=== PATIENT | female | born 1930 | race Caucasian/White ===

== ENCOUNTER 2017-07-25 10:39 | Inpatient (IN) | payer OTHER, BC ==
[2017-07-25 11:13] LABS: BASOPHIL 0.4 % (0-2.0); EOSINOPHIL 0.6 % (0-4.5); MCH 27.9 pg (25.7-33.7); MCHC 34.3 g/dl (32.0-36.0); MEAN CELL VOLUME 81.3 fl (80-96); MEAN PLT VOLUME 8.1 fl (7.5-11.1); PLATELET COUNT 176 K/MM3 (134-434); RDW 14.2 % (11.6-15.6)
[2017-07-25] MEDS ORDERED: LABETALOL HCL 5 MG/1 ML (100MG/20 ML VIAL) IVPUSH ONE (11:15)
--- NOTE | 2017-07-25 11:15 | PDOC ---
History of Present Illness - General Chief Complaint: Altered Mental Status Stated Complaint: ALTERED MENTAL STATUS Time Seen by Provider: 07/25/17 10:50 History Source: Patient Exam Limitations: No Limitations - History of Present Illness Initial Comments: 07/25/17 12:38 Pt. is a 86-year-old female with past medical history of hypertension, HLD, IDDM who presents to the emergency department today with confusion, left facial droop, and slurred speech. She is accompanied by her son. Her son states that she lives with him and he went to check on her this morning at approximately 9: 15 when she grumbled that she was tired and went back to bed. He went back to check on her approximately 15 minutes later and now she had slurred speech and was very confused. He called 911 for transport. Last known well is undetermined as the son states the last time he believes she was truly well was approximately last evening at 10 PM. Patient is an unreliable historian and we are not able to obtain a review of systems at this time, although she is c/o of a headache at this time. Blood pressure is elevated at this time 211/115. tPA Exclusion checklist 3-4.5h - Time Elapsed Date last known well: 07/24/17 Time last known well: 22:00 Elaspsed time: Day(s) and 15 Hour(s) and 1 Minutes - Thrombolytic Therapy Candidate Is patient eligible for thrombolytic therapy: No - Ineligibility reason(s) Reasons No tPA given: Outside of window - delayed arrival NIH Stroke Scale - Last Known Well Date/Time & Onset Date Last Known Well: 07/24/17 Time Last Known Well: 22:00 - Initial Evaluation Level of consciousness: Alert Ask patient the month and their age: Answers one correctly Ask patient to open & close eyes; make fist and let go: Obeys both correctly Best gaze (horizontal eye movement): Normal Visual field testing: No visual field loss Facial paresis (Show teeth/raise eyebrows/close eyes tight): Minor paralysis ( flattened nasolabial fold, asymmetry on smiling) Motor Function: Left Arm: Normal Motor Function: Right Arm: Normal (extends arm 90 (or 45) degrees for 10 seconds without drift Motor Function: Left Leg: Drift Motor Function: Right Leg: Normal (extends leg 30 degrees for 5 seconds without drift) Limb Ataxia: No ataxia Sensory(Use pinprick test arms,legs,trunk,face/side to side): Normal Best language (Describe picture, name items, read sentences): Mild to moderate aphasia Dysarthria (read several words): Mild to moderate slurring of words Extinction and Inattention: No abnormality - Total Score NIH Stroke Scale Score: 5 Past History - Travel Traveled outside of the country in the last 30 days: No Close contact w/someone who was outside of country & ill: No - Past Medical History Allergies/Adverse Reactions: Allergies Allergy/AdvReac Type Severity Reaction Status Date / Time No Known Allergies Allergy Verified 07/25/17 10:52 Home Medications: Ambulatory Orders Aspirin [ASA -] 81 mg PO DAILY #0 tab.chew 05/18/13 Atorvastatin Ca [Lipitor] 10 mg PO DAILY #0 tablet 05/18/13 Magnesium Oxide [Mag-Ox -] 400 mg PO BID #0 tablet 05/18/13 Metformin HCl [Glucophage -] 1,000 mg PO BID #0 tablet 05/18/13 Metoprolol Tartrate [Lopressor -] 50 mg PO BID #0 tablet 05/18/13 Multivit-Min/FA/Lycopene/Lut [Centrum Silver Tablet] 1 each PO DAILY #0 tablet 05/18/13 Potassium Chloride [Klor-Con] 20 meq PO DAILY #0 packet 05/18/13 Anastrozole [Arimidex -] 1 mg PO DAILY 11/13/14 Calcium Carbonate [Tums] 500 mg PO DAILY 11/13/14 Insulin (Levemir) [Levemir Flexpen -] 14 units SQ HS 11/13/14 Losartan/Hydrochlorothiazide [Losartan-Hctz 100-25 mg Tab] 1 each PO DAILY 11/13 COPD: No Diabetes: Yes (type 2) HTN: Yes Hypercholesterolemia: Yes - Surgical History Appendectomy: Yes - Suicide/Smoking/Psychosocial Hx Smoking Status: No Smoking History: Never smoked Have you smoked in the past 12 months: No Number of Cigarettes Smoked Daily: 0 Information on smoking cessation initiated: No Hx Alcohol Use: No Drug/Substance Use Hx: No Substance Use Type: None Review of Systems - Review of Systems Able to Perform ROS?: Yes Comments:: 07/25/17 12:39 CONSTITUTIONAL: Absent: fever, chills, diaphoresis, generalized weakness, malaise, loss of appetite HEENT: Absent: rhinorrhea, nasal congestion, throat pain, throat swelling, difficulty swallowing, mouth swelling, ear pain, eye pain, visual Changes CARDIOVASCULAR: Absent: chest pain, loss of consciousness, palpitations, irregular heart rate, peripheral edema RESPIRATORY: Absent: cough, shortness of breath, dyspnea with exertion, orthopnea, wheezing, stridor, hemoptysis GASTROINTESTINAL: Absent: abdominal pain, abdominal distension, nausea, vomiting, diarrhea, constipation, melena, hematochezia GENITOURINARY: Absent: dysuria, frequency, urgency, hesitancy, hematuria, flank pain, genital pain MUSCULOSKELETAL: Absent: myalgia, arthralgia, joint swelling SKIN: Absent: rash, itching, pallor HEMATOLOGIC/IMMUNOLOGIC: Absent: easy bleeding, easy bruising, lymphadenopathy, frequent infections ENDOCRINE: Absent: unexplained weight gain, unexplained weight loss, heat intolerance, cold intolerance NEUROLOGIC: Present: headache, mental status changes. Absent: focal weakness or paresthesias , dizziness, unsteady gait, seizure, bladder or bowel incontinence PSYCHIATRIC: Absent: anxiety, depression, suicidal or homicidal ideation, hallucinations. Is the patient limited Palestinian proficient: No *Physical Exam - Vital Signs Last Vital Signs Temp Pulse Resp BP Pulse Ox 90 18 211/115 100 07/25/17 10:39 07/25/17 10:39 07/25/17 10:39 07/25/17 10:39 - Physical Exam Comments: 07/25/17 12:41 GENERAL: Well developed, well nourished. Awake and alert x2, confused. Mild distress d/t confusion. HEENT: Normocephalic, atraumatic. PERRLA. Pt. has a difficult time comprehending exam for EOM. Appear to be intact at this time. No conjunctival pallor. Sclera are non-icteric. Moist mucous membranes. Oropharynx is clear. NECK: Supple. Full ROM. No JVD. Carotid pulses 2+ and symmetric, without bruits. No thyromegaly. No lymphadenopathy. CARDIOVASCULAR: Regular rate and rhythm. No murmurs, rubs, or gallops. Distal pulses are 2+ and symmetric. PULMONARY: No evidence of respiratory distress. Lungs clear to auscultation bilaterally. No wheezing, rales or rhonchi. ABDOMINAL: Soft. Non-tender. Non-distended. No rebound or guarding. No organomegaly. Normoactive bowel sounds. MUSCULOSKELETAL Normal range of motion at all joints. No bony deformities or tenderness. No CVA tenderness. EXTREMITIES: No cyanosis. No clubbing. No edema. No calf tenderness. SKIN: Warm and dry. Normal capillary refill. No rashes. No jaundice. NEUROLOGICAL: AAOx2 (person and place) and confused. Full neuro exam is difficult to appreciate given pt. is not following commands well. No deficits to light touch and temperature in face, upper extremities and lower extremities. No motor deficits in the in face, upper extremities. Pt with mild weakness in the L leg. Normoreflexic in the upper and lower extremities. Slurred speech with some dysarthria. Toes are down-going bilaterally. Gait is unobserved. PSYCHIATRIC: Cooperative. Good eye contact. Appropriate mood and affect. ED Treatment Course - LABORATORY CBC & Chemistry Diagram: 07/25/17 11:02 07/25/17 11:02 Medical Decision Making - Medical Decision Making 07/25/17 11:47 Patient is an 86-year-old female with past medical history of HTN, HLD, IDDM who presents emergency department with slurred speech, left-sided facial droop and confusion. Last known well was last night at approximately 10 PM however given that there are still symptoms a code piper was called. Pt. not eligible for tPA as unable to determine LKW. 1.stroke protocol 2.reevaluate 07/25/17 12:[address] shows: Moderate atrophy and moderate to marked chronic microvascular ischemic changes. Right occipital lobe acute/subacute infarct. No gross intracranial hemorrhage is identified. Follow-up is needed. NIH stroke scale is 5 at this time. Patient is unable to determine what month it is. There is a slight facial droop on the left with some flattening of her smile. There is mild slurred speech and dysarthria. She also has a left leg drift. Neurology has been consulted. Patient is seen by Dr. Pruitt. We will contact Dr. Falcon for admission. Pt. passes bedside swallow. Aspirin given. Pressure elevated to 198/105. Will administer home dose of htcz/hydrochorthiazide. EKG: Sinus rhythm with LAFB. LVH with QRS widening. No acute ST-T wave changes. 07/25/17 12:[address] Falcon. Accepts pt. to Stroke Tele unit. Dr. Hnery consulted. *DC/Admit/Observation/Transfer Diagnosis at time of Disposition: CVA (cerebral vascular accident) Qualifiers: CVA mechanism: unspecified Qualified Code(s): I63.9 - Cerebral infarction, unspecified - Discharge Dispostion Condition at time of disposition: Guarded Admit: Yes - Referrals Referrals: Musa Ellington MD [Primary Care Provider] -
[2017-07-25 11:24] VITALS: BMI 35.4
--- NOTE | 2017-07-25 11:30 | PDOC ---
*Physical Exam - Vital Signs Last Vital Signs Temp Pulse Resp BP Pulse Ox 90 18 211/115 100 07/25/17 10:39 07/25/17 10:39 07/25/17 10:39 07/25/17 10:39 <Alycia Chandler - Last Filed: 07/25/17 11:25> - Vital Signs Last Vital Signs Temp Pulse Resp BP Pulse Ox 90 18 211/115 100 07/25/17 10:39 07/25/17 10:39 07/25/17 10:39 07/25/17 10:39 - Physical Exam Comments: 07/25/17 11:30 GENERAL: Awake, alert, eyes open HEAD: No signs of trauma EYES: PERRLA, EOMI, sclera anicteric, conjunctiva clear ENT: Auricles normal inspection, hearing grossly normal, nares patent, oropharynx clear without exudates. Moist mucosa NECK: Normal ROM, supple, no lymphadenopathy, JVD, or masses LUNGS: Breath sounds equal, clear to auscultation bilaterally. No wheezes, and no crackles HEART: Regular rate and rhythm, normal S1 and S2, no murmurs, rubs or gallops ABDOMEN: Soft, nontender, normoactive bowel sounds. No guarding, no rebound. No masses EXTREMITIES: Warm, well perfused. No edema. No clubbing or cyanosis. No cords, erythema, or tenderness NEUROLOGICAL: Mild left nasolabial flattening. Speech has mild slurring. Left arm has a drift. SKIN: Warm, Dry, normal turgor, no rashes or lesions noted. <Marie Hoover - Last Filed: 07/25/17 11:31> ED Treatment Course - LABORATORY CBC & Chemistry Diagram: 07/25/17 11:02 07/25/17 11:02 - ADDITIONAL ORDERS Additional order review: 07/25/17 11:02 RBC 5.65 H D MCV 81.3 MCHC 34.3 RDW 14.2 MPV 8.1 Neutrophils % 76.0 D Lymphocytes % 18.0 D Monocytes % 5.0 Eosinophils % 0.6 D Basophils % 0.4 - RADIOLOGY Radiology Studies Ordered: Category Date Time Status HEAD CT (STROKE) [CT] Stat CT Scan 07/25/17 10:50 Completed CHEST X-RAY PORTABLE* [RAD] Stat Radiology 07/25/17 10:50 Ordered <Alycia Chandler - Last Filed: 07/25/17 11:25> - LABORATORY CBC & Chemistry Diagram: 07/25/17 11:02 07/25/17 11:02 - ADDITIONAL ORDERS Additional order review: 07/25/17 11:02 RBC 5.65 H D MCV 81.3 MCHC 34.3 RDW 14.2 MPV 8.1 Neutrophils % 76.0 D Lymphocytes % 18.0 D Monocytes % 5.0 Eosinophils % 0.6 D Basophils % 0.4 <Marie Hoover - Last Filed: 07/25/17 11:31> Medical Decision Making - Medical Decision Making 07/25/17 11:26 86 yo F wit h/o DM HTN here with AMS , left facial droop and left sided weakness. confusion. last normal last pm prior to goig to bed. was awoke this am around 8 : 45 by son. pt states she was drowsy, seemed confused, went back to bed. on exam NIH Stroke of 5, mild left nasolabial flattening, left leg drifts, and mild dysarthria, and slurring. difficult to assess visual johns and ataxia pt cant comprehend instruction. pt not candidate for TPA due to delay in presentation. d/w dr. morrow. head ct labs ekg will admit for monitoring. <Alycia Chandler - Last Filed: 07/25/17 11:25> - Medical Decision Making 07/25/17 11:30 86 y/o F with a PMHx of HTN, NIDDM presents to the ED with slurred speech, confusion and left sided facial droop this morning. Son states that he woke the patient up around 8:45 am this morning and the patient was tired and wanted to go back to sleep. Son wasnt able to notice a facial droop at the time but he noted that she sounded sleepy/groggy but didnt think much of it. A few hours later, son noticed a left sided facial droop and slurred speech and called EMS. Patient did not take her medications today. Denies prior strokes or heart attacks in the past. Denies nausea, vomiting. PCP: Dr. José Miguel Ellington <Marie Hoover - Last Filed: 07/25/17 11:31> *DC/Admit/Observation/Transfer <Alycia Chandler - Last Filed: 07/25/17 11:25> - Attestations Scribe Attestion: 07/25/17 11:31 Documentation prepared by Marie Hoover, acting as medical staff assistant for Alycia Chandler MD. <Marie Hoover - Last Filed: 07/25/17 11:31> Diagnosis at time of Disposition: CVA (cerebral vascular accident) - Referrals Referrals: Musa Ellington MD [Primary Care Provider] -
[2017-07-25 11:39] LABS: URINE APPEARANCE CLEAR; URINE BILIRUBIN NEGATIVE (NEGATIVE); URINE BLOOD NEGATIVE (NEGATIVE); URINE COLOR STRAW; URINE GLUCOSE (UA) 1+ (NEGATIVE); URINE KETONE TRACE (NEGATIVE); URINE NITRITE NEGATIVE (NEGATIVE); URINE UROBILINOGEN NEGATIVE mg/dL (0.2-1.0)
[2017-07-25 11:41] LABS: INR 1.02 (0.82-1.09); PROTHROMBIN TIME (PATIENT) 11.5 SEC (9.98-11.88)
[2017-07-25 11:42] LABS: ALBUMIN 5.1 g/dl (3.4-5.0); ANION GAP 12 (8-16); CALCIUM 9.3 mg/dL (8.5-10.1); CO2 27 mmol/L (21-32); CREATININE 0.7 mg/dL (0.55-1.02); GLUCOSE,RANDOM 150 mg/dL (74-106); SGOT/AST 32 U/L (15-37); SGPT/ALT 22 U/L (12-78)
[2017-07-25 11:46] LABS: ALK PHOS 116 U/L (45-117); CPK 60 IU/L (26-192); TOT PROT 7.6 g/dl (6.4-8.2); TROPONIN I < 0.02 ng/ml (0.00-0.05)
[2017-07-25 11:55] LABS: URINE PROTEIN 3+ (NEGATIVE)
[2017-07-25 11:58] LABS: URINE MUCUS RARE; URINE RBC 0-2 /hpf (0-3); URINE WBC NEGATIVE /hpf (3-5)
[2017-07-25] MEDS ORDERED: ASPIRIN 81 MG CHEWABLE TABLETS PO ONE (12:04)
[2017-07-25] MEDS ORDERED: ASPIRIN 81 MG CHEWABLE TABLETS ONE (12:07)
[2017-07-25] MEDS ORDERED: LOSARTAN 50MG/HCTZ 12.5MG 1 TAB (FP) PO ONE (12:46)
[2017-07-25 12:53] LABS: CHOLESTEROL 165 mg/dL (50-200)
[2017-07-25] MEDS ORDERED: ONDANSETRON 4 MG/2 ML VIAL IVPUSH PRN (13:54)
[2017-07-25] MEDS ORDERED: hydrALAZINE HCL 20 MG/ML VIAL IM PRN (14:04)
--- NOTE | 2017-07-25 14:04 | HP ---
Admitting History and Physical - Primary Care Physician PCP: Musa Ellington - Admission Chief Complaint: I was confused History of Present Illness: Ms Enrique is a very pleasant 86 year old female who comes in with her son with confusion. 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 He says that Ms Enrique was doing well, however she woke up this morning and seemed confused. He says that her speech was a bit slurred but it not severely and he took it as her just waking up. She said that she was not feeling well and went back to sleep. However when she woke up she was very confused. Because of this he brought her in. He says that at first she was very "out of it" but now comes and goes, however she recognizes him again which is an improvement. History Source: Family Member Limitations to Obtaining History: Clinical Condition, Dementia - Past Medical History Cardiovascular: Yes: HTN Endocrine: Yes: Diabetes Mellitus - Past Surgical History Past Surgical History: Yes: Appendectomy - Smoking History Smoking history: Never smoked Have you smoked in the past 12 months: No Aproximately how many cigarettes per day: 0 - Alcohol/Substance Use Hx Alcohol Use: No History of Substance Use: reports: None - Social History Usual Living Arrangement: Yes: With Child ADL: Family Assistance History of Recent Travel: No Home Medications - Allergies Allergies/Adverse Reactions: Allergies Allergy/AdvReac Type Severity Reaction Status Date / Time No Known Allergies Allergy Verified 07/25/17 10:52 - Home Medications Home Medications: Ambulatory Orders Aspirin [ASA -] 81 mg PO DAILY #0 tab.chew 05/18/13 Atorvastatin Ca [Lipitor] 10 mg PO DAILY #0 tablet 05/18/13 Magnesium Oxide [Mag-Ox -] 400 mg PO BID #0 tablet 05/18/13 Metformin HCl [Glucophage -] 1,000 mg PO BID #0 tablet 05/18/13 Metoprolol Tartrate [Lopressor -] 50 mg PO BID #0 tablet 05/18/13 Multivit-Min/FA/Lycopene/Lut [Centrum Silver Tablet] 1 each PO DAILY #0 tablet 05/18/13 Potassium Chloride [Klor-Con] 20 meq PO DAILY #0 packet 05/18/13 Anastrozole [Arimidex -] 1 mg PO DAILY 11/13/14 Calcium Carbonate [Tums] 500 mg PO DAILY 11/13/14 Insulin (Levemir) [Levemir Flexpen -] 14 units SQ HS 11/13/14 Losartan/Hydrochlorothiazide [Losartan-Hctz 100-25 mg Tab] 1 each PO DAILY 11/13 Family Disease History - Family Disease History Family Disease History: Other: Son (hypothyroid) Review of Systems Unable to obtain ROS, reason: dementia/CVA Physical Examination Vital Signs: Vital Signs Temperature 36.8 C 07/25/17 11:05 Pulse Rate 85 07/25/17 13:24 Respiratory Rate 22 07/25/17 13:24 Blood Pressure 195/108 07/25/17 13:24 O2 Sat by Pulse Oximetry (%) 94 L 07/25/17 13:24 Constitutional: Yes: Well Nourished, No Distress, Calm Eyes: Yes: Conjunctiva Clear, EOM Intact, PERRL HENT: Yes: Atraumatic, Normocephalic Cardiovascular: Yes: Regular Rate and Rhythm. No: Gallop, Murmur, Rub Respiratory: Yes: Regular, CTA Bilaterally. No: Rales, Rhonchi, Wheezes Gastrointestinal: Yes: Normal Bowel Sounds, Soft. No: Distention, Tenderness Extremities: Yes: WNL Edema: No Labs: Laboratory Results - last 24 hr 07/25/17 07/25/17 07/25/17 11:02 11:02 11:02 WBC 9.0 D RBC 5.65 H D Hgb 15.8 H D Hct 45.9 H D MCV 81.3 MCH 27.9 MCHC 34.3 RDW 14.2 Plt Count 176 MPV 8.1 Neutrophils % 76.0 D Lymphocytes % 18.0 D Monocytes % 5.0 Eosinophils % 0.6 D Basophils % 0.4 PT with INR 11.50 INR 1.02 Sodium 135 L Potassium 3.2 L Chloride 96 L Carbon Dioxide 27 Anion Gap 12 BUN 17 Creatinine 0.7 Creat Clearance w eGFR > 60 Random Glucose 150 H D Calcium 9.3 Total Bilirubin 1.0 D AST 32 ALT 22 Alkaline Phosphatase 116 D Creatine Kinase 60 Troponin I < 0.02 Total Protein 7.6 D Albumin 5.1 H D Triglycerides 162 H Cholesterol 165 Total LDL Cholesterol 76 HDL Cholesterol 69 H Urine Color Urine Appearance Urine pH Ur Specific [place] Urine Protein Urine Glucose (UA) Urine Ketones Urine Blood Urine Nitrite Urine Bilirubin Urine Urobilinogen Ur Leukocyte Esterase Urine RBC Urine WBC Urine Mucus Blood Type Antibody Screen Antibody Identification Antigen Identification 07/25/17 07/25/17 11:02 11:20 WBC RBC Hgb Hct MCV MCH MCHC RDW Plt Count MPV Neutrophils % Lymphocytes % Monocytes % Eosinophils % Basophils % PT with INR INR Sodium Potassium Chloride Carbon Dioxide Anion Gap BUN Creatinine Creat Clearance w eGFR Random Glucose Calcium Total Bilirubin AST ALT Alkaline Phosphatase Creatine Kinase Troponin I Total Protein Albumin Triglycerides Cholesterol Total LDL Cholesterol HDL Cholesterol Urine Color Straw Urine Appearance Clear Urine pH 8.0 D Ur Specific [place] 1.009 Urine Protein 3+ H Urine Glucose (UA) 1+ H D Urine Ketones Trace H Urine Blood Negative Urine Nitrite Negative Urine Bilirubin Negative Urine Urobilinogen Negative Ur Leukocyte Esterase Negative Urine RBC 0-2 Urine WBC Negative Urine Mucus Rare Blood Type A NEGATIVE Antibody Screen Positive H Antibody Identification No Result Required. Antigen Identification Y Imaging - Results Cat Scan: Report Reviewed Problem List - Problems (1) CVA (cerebral vascular accident) Assessment/Plan: -patient presents with acute CVA -admit to telemetry -neurology consulted -full strength aspirin, may need aggrenox or plavix -ECHO and carotid ultrasound -speech therapy and physical therapy Code(s): I63.9 - CEREBRAL INFARCTION, UNSPECIFIED Qualifiers: CVA mechanism: unspecified Qualified Code(s): I63.9 - Cerebral infarction, unspecified; I63.9 - Cerebral infarction, unspecified; I63.9 - Cerebral infarction, unspecified; I63.9 - Cerebral infarction, unspecified (2) HTN (hypertension) Assessment/Plan: -will allow for permissive HTN for 24 hours -per guidelines, maintain BP below 220/120 -in am can restart home blood pressure medications for tight control Code(s): I10 - ESSENTIAL (PRIMARY) HYPERTENSION (3) Diabetes Assessment/Plan: -continue metformin and levemir -SSI -check Hgb A1c Code(s): E11.9 - TYPE 2 DIABETES MELLITUS WITHOUT COMPLICATIONS (4) HLD (hyperlipidemia) Assessment/Plan: -continue lipitor Code(s): E78.5 - HYPERLIPIDEMIA, UNSPECIFIED (5) Breast cancer Assessment/Plan: -continue arimidex Code(s): C50.919 - MALIGNANT NEOPLASM OF UNSP SITE OF UNSPECIFIED FEMALE BREAST
[2017-07-25] MEDS: SODIUM CHLORIDE 1,000 ML IV SCH (14:27)
[2017-07-25] MEDS ORDERED: METOPROLOL TARTRATE 50 MG TABLET (FP) PO ONE (14:54)
[2017-07-25] MEDS ORDERED: METOPROLOL TARTRATE 50 MG TABLET (FP) ONE (15:06)
[2017-07-25] MEDS ORDERED: metFORMIN HCL 500 MG TABLET (FP) ONE (16:59)
[2017-07-25] MEDS: metFORMIN HCL 500 MG TABLET (FP) PO SCH (17:05)
[2017-07-25] MEDS ORDERED: ONDANSETRON 4 MG/2 ML VIAL ONE (18:36)
[2017-07-25 18:40] LABS: URINE LEUK ESTERASE Negative (NEGATIVE)
[2017-07-25] MEDS: DOCUSATE SODIUM 100 MG CAPSULE (FP) PO SCH (21:11)
[2017-07-25] MEDS: ATORVASTATIN CA 10 MG TABLET (FP) PO SCH (21:11)
[2017-07-25] MEDS: ACETAMINOPHEN 325 MG TABLET (FP) PO PRN (21:11)
[2017-07-25] MEDS: MAGNESIUM OXIDE 400 MG TABLET (FP) PO SCH (21:11)
[2017-07-25] MEDS: INSULIN DETEMIR 100 UNITS/ML MDV SQ SCH (21:25)
--- NOTE | 2017-07-25 21:45 | CONSULT ---
Consult - text type - Consultation Consultation Note: NEUROLOGY CONSULTATION is greatly appreciated: This 86 yo RH woman lives with her family. PMH sig for HTN, TG's, DM, breast Ca. Maintained on Insulin, ASA, Atorvastatin, metformin, metoprolol, arimidex, losartan, HCTZ. This AM c/o feeling unwell and didn't want to get OO Bed. Later, was found to have slurred speech and confusion. Brought to ER where BP was noted to be 211/115. CT of head (reviewed) showed diffuse atrophy and microvascular changes. Densely calcified Basilar artery. Carotid duplex dopplers: Moderate atheromatous changes without significant hemodynamic changes. BP's gradually improving but still 170/100. TANYA: Neck supple. No bruits. Cor reg. Unkempt. No external head trauma. NEURO: Follows most simple commands (but nor more complex ones). O [facility] but not [facility], Month or year. + Glabella, snoput. Full visual johns and EOM's. Gag OK Mild Right drift. Symmetrical grasps. Brisk reflexes except AJ's. Bilateral Babinskis. Withdraws all 4's briskly to pin. IMP: Moderately severe B/L cerebral dysfunction (OMS, Chronic features). Has mild B/L motor signs (L>R) c/w Chronic Hypertensive microvascular disease. Doubt acute CVA-suspect subacute changes secondary to Hypertensive encephalopathy. Suggest: Continue BP control to a goal of 130-140/80-90 OOB to chair for meals and PT eval of gait. Check B12, TSH, RPR in eval of OMS. 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 Thank you very much, Ryland Henry MD
[2017-07-25] MEDS ORDERED: METOPROLOL TARTRATE 50 MG TABLET (FP) PO SCH (22:00)
[2017-07-26] MEDS: metFORMIN HCL 500 MG TABLET (FP) PO SCH ×2 (06:10→16:44)
[2017-07-26 07:21] LABS: BASOPHIL 0.4 % (0-2.0); EOSINOPHIL 0.8 % (0-4.5); MCH 28.1 pg (25.7-33.7); MCHC 35.2 g/dl (32.0-36.0); MEAN PLT VOLUME 8.5 fl (7.5-11.1); NEUTROPHILS 63.3 % (42.8-82.8); PLATELET COUNT 190 K/MM3 (134-434); RDW 13.9 % (11.6-15.6); WHITE BLOOD COUNT 10.6 K/mm3 (4.0-10.0)
--- NOTE | 2017-07-26 07:30 | EKG ---
Test Reason : Blood Pressure : / mmHG Vent. Rate : 081 BPM Atrial Rate : 081 BPM P-R Int : 168 ms QRS Dur : 124 ms QT Int : 386 ms P-R-T Axes : 058 -55 090 degrees QTc Int : 448 ms NORMAL SINUS RHYTHM POSSIBLE LEFT ATRIAL ENLARGEMENT LEFT ANTERIOR FASCICULAR BLOCK LEFT VENTRICULAR HYPERTROPHY WITH QRS WIDENING AND REPOLARIZATION ABNORMALITY ABNORMAL ECG WHEN COMPARED WITH ECG OF 16-MAY-2013 12:36, T WAVE VARIATION Confirmed by GALLO OLIVERA MD ([id number]) on 07/26/2017 7:30:27 AM Referred By: Confirmed By:GALLO OLIVERA MD
[2017-07-26] MEDS: METOPROLOL TARTRATE 50 MG TABLET (FP) PO SCH ×2 (09:14→21:31)
[2017-07-26] MEDS: DOCUSATE SODIUM 100 MG CAPSULE (FP) PO SCH ×2 (09:15→21:32)
[2017-07-26] MEDS: HYDROCHLOROTHIAZIDE 25 MG TABLET (FP) PO SCH (09:15)
[2017-07-26] MEDS: MAGNESIUM OXIDE 400 MG TABLET (FP) PO SCH ×2 (09:15→21:32)
[2017-07-26] MEDS: LOSARTAN POTASSIUM 50 MG TABLET (FP) PO SCH (09:15)
[2017-07-26] MEDS: POTASSIUM CHLORIDE TABS 20 MEQ TABLET.ER (FP) PO SCH (09:15)
[2017-07-26] MEDS: POLYETHYLENE GLYCOL 3350 119 GM BTL PO SCH (09:16)
[2017-07-26] MEDS: ASPIRIN 325 MG ENTERIC COATED TABLET (FP) PO SCH (09:19)
[2017-07-26 09:41] LABS: CALCIUM 8.3 mg/dL (8.5-10.1)
[2017-07-26 09:50] LABS: ANION GAP 13 (8-16); CO2 27 mmol/L (21-32); CPK 99 IU/L (26-192); CREATININE 1.1 mg/dL (0.55-1.02); GLUCOSE,RANDOM 86 mg/dL (74-106); MAGNESIUM 2.2 mg/dL (1.8-2.4); PHOSPHOROUS 4.1 mg/dL (2.5-4.9); TROPONIN I 0.07 ng/ml (0.00-0.05)
[2017-07-26] MEDS ORDERED: PATIENT'S OWN MEDICATION (NON-FORMULARY) (Losartan/Hydrochlorothiazide [Losartan-Hctz 100- PO SCH (10:00)
[2017-07-26] MEDS: ANASTROZOLE 1 MG TABLET PO SCH (11:25)
[2017-07-26] MEDS ORDERED: POTASSIUM CHLORIDE 30 MEQ in SODIUM CHLORIDE 300 ML IVPB ONE (11:30)
--- NOTE | 2017-07-26 11:43 | CONSULT ---
Admitting History and Physical - Primary Care Physician PCP: Werner Falcon - Admission History of Present Illness: Per admission note: 86 yo F wit h/o DM HTN here with AMS , left facial droop and left sided weakness. confusion. last normal last pm prior to goig to bed. was awoke this am around 8 : 45 by son. pt states she was drowsy, seemed confused, went back to bed. on exam NIH Stroke of 5, mild left nasolabial flattening, left leg drifts, and mild dysarthria, and slurring. difficult to assess visual johns and ataxia pt cant comprehend instruction. Neuro IMP: Moderately severe B/L cerebral dysfunction (OMS, Chronic features). Has mild B/L motor signs (L>R) c/w Chronic Hypertensive microvascular disease. Doubt acute CVA-suspect subacute changes secondary to Hypertensive encephalopathy. Vomited after drinking tea on 09/24. Pt's son reports that she has been forgetful, more confused when out of her environment, with an acute, significant change yesterday in clarity of speech and mentation. He denied any asymmetry. He reports she is much better today, not totally to baseline. History Source: Family Member, Medical Record Limitations to Obtaining History: Clinical Condition, Poor Historian - Past Medical History Cardiovascular: Yes: HTN Endocrine: Yes: Diabetes Mellitus - Past Surgical History Past Surgical History: Yes: Appendectomy - Smoking History Smoking history: Never smoked Have you smoked in the past 12 months: No Aproximately how many cigarettes per day: 0 - Alcohol/Substance Use Hx Alcohol Use: No History of Substance Use: reports: None - Social History ADL: Family Assistance History of Recent Travel: No History - Admission Reason For Visit: CVA - Diagnostics X-ray: Report Reviewed CT Scan: Report Reviewed (diffuse atrophy and microvascular changes. Densely calcified Basilar artery.) - General Mental Status: Awake and Alert, Able to Follow Commands, Confused Attention: Distractible, Mild Impairment Ability to Follow Directions: Fair Head/Neck Control: Good - Hearing Hearing: Impaired, Deaf, Left Ear Hearing Aide: No Speech Evaluation - Communication Primary Language: [place] Communication: Yes: Simple Responses Oral Expression Ability: Yes: Mild Impairment - Speech Production Able to Make Needs Known: Yes: Mildly Impaired Intelligibility: Yes: WNL - Speech Characteristics Voice Loudness: Normal Voice Pitch: Yes: Normal Voice Phonatory-based Quality: Yes: Normal Speech Pattern: Impaired Nasal Resonance: Normal Articulation: Yes: Precise - Language/Auditory Comprehension Follows: Yes: 1 Stage Simple Commands - Language/Verbal Expression Aphasia: Yes: Anomia (groping for words with word errors.), Paraphrasic Errors Able to Respond to Simple Queries: Yes: Mildly Impaired Able to Communicate Wants and Needs: Yes: Mildly Impaired Functional Communication Status: Yes: Mildly Impaired - Memory/Perception Short Term Memory: Yes: Severely Impaired (poor retention of orientation information after 1 min without distraction) - Swallow Evaluation/Bedside Assessment Current Nutritional Intake: NPO Oral Secretions: Yes: WFL Dentition: Yes: Missing Teeth Facial Symmetry at Rest: Symmetrical Facial Symmetry on Retraction: Symmetrical Pucker Lips: Normal Smile: Normal Lingual Speed of Movement: Normal Lingual Movement Strgth Against Opposition: Normal Lingual Movement Characteristics: Normal Laryngeal Elevation: WFL Laryngeal Movement: Able to Palpate Rate of Intake: WFL Bolus Size: WFL Chewing: Impaired (missing dentition. Difficulty with prosper cracker.) Oral Prep Time: WFL A-P Transit: WFL Pocketing: None Timing of Swallow: WFL Coughing/Throat Clear: No Change in Voice: No Recommendations - Speech Evaluation, Impression/Plan Impression: Verbal with anomia. Memory deficits with impaired insight. Poor retention of orientation information after 1 min without distraction. Missing dentition, adversely affecting mastication. - Disposition Discharge to: To be Determined - Dysphagia Impressions/Plan Swallowing Skills: WF Dysphagia Impressions: Mild Impairment *Silent aspiration: cannot be R/O at bedside Dysphagia Treatment Plan: Elevate HOB during feed, OOB for meals Recommendations: Modified Barium Swallow (if signs of dysphagia reported or observed.) - Recommendations Diet Consistency: Regular (soft food with chopped meat) Medication Administration: Whole with water Liquids: Thin Liquids Supplement: Other (Supplements b/n meals, as indicated.)
[2017-07-26] MEDS: SODIUM CHLORIDE 1,000 ML IV SCH (14:36)
--- NOTE | 2017-07-26 15:39 | PN ---
Progress Note (short form) - Note Progress Note: ID consult dictated imp/reccd 86 year old female admitted with confusion, facial droop, slurred speech ct scan with Right occipiral acute/subacute infarct speech has improved no fevers she is confused and sometimes agitated asked to evaluate for possible UTI patient without symptoms and UA is negative low colony count of 2 organisms in urine culture (clean catch) would not treat for UTI-more c/w asymptomatic bacteriuria management of CVA/Dementia/HTN per PMD d/w family at bedside please call back if needed Problem List - Problems (1) Asymptomatic bacteriuria Code(s): R82.71 - BACTERIURIA (2) CVA (cerebral vascular accident) Code(s): I63.9 - CEREBRAL INFARCTION, UNSPECIFIED Qualifiers: CVA mechanism: unspecified Qualified Code(s): I63.9 - Cerebral infarction, unspecified; I63.9 - Cerebral infarction, unspecified; I63.9 - Cerebral infarction, unspecified; I63.9 - Cerebral infarction, unspecified (3) Dementia Code(s): F03.90 - UNSPECIFIED DEMENTIA WITHOUT BEHAVIORAL DISTURBANCE (4) HTN (hypertension) Code(s): I10 - ESSENTIAL (PRIMARY) HYPERTENSION
--- NOTE | 2017-07-26 16:11 | PN ---
Progress Note, Physician Chief Complaint: Unable to obtain, patient very confused. Son at bedside and saying she is trying to get out of bed and is confused - Current Medication List Current Medications: Active Medications Acetaminophen (Tylenol -) 650 mg PO Q4H PRN PRN Reason: FEVER OR PAIN Last Admin: 07/25/17 21:11 Dose: 650 mg Anastrozole (Arimidex -) 1 mg PO DAILY [facility] Last Admin: 07/26/17 11:25 Dose: 1 mg Aspirin (Ecotrin -) 325 mg PO DAILY [facility] Last Admin: 07/26/17 09:19 Dose: 325 mg Atorvastatin Calcium (Lipitor -) 10 mg PO HS [facility] Last Admin: 07/25/17 21:11 Dose: 10 mg Docusate Sodium (Colace -) 100 mg PO BID [facility] Last Admin: 07/26/17 09:15 Dose: 100 mg Hydralazine HCl (Apresoline Injection -) 10 mg IM Q8H PRN PRN Reason: HYPERTENSION Hydrochlorothiazide (Hctz -) 25 mg PO DAILY [facility] Last Admin: 07/26/17 09:15 Dose: 25 mg Sodium Chloride (Normal Saline -) 1,000 mls @ 42 mls/hr IV ASDIR [facility] Last Admin: 07/26/17 14:36 Dose: 42 mls/hr Insulin Detemir (Levemir Vial) 14 units SQ HS [facility] Last Admin: 07/25/17 21:25 Dose: 14 units Losartan Potassium (Cozaar -) 100 mg PO DAILY [facility] Last Admin: 07/26/17 09:15 Dose: 100 mg Magnesium Oxide (Mag-Ox -) 400 mg PO BID [facility] Last Admin: 07/26/17 09:15 Dose: 400 mg Metformin HCl (Glucophage -) 1,000 mg PO BIDAC [facility] Last Admin: 07/26/17 06:10 Dose: 1,000 mg Metoprolol Tartrate (Lopressor -) 50 mg PO BID [facility] Last Admin: 07/26/17 09:14 Dose: 50 mg Ondansetron HCl (Zofran Injection) 4 mg IVPUSH Q6H PRN PRN Reason: NAUSEA Last Admin: 07/25/17 18:40 Dose: 4 mg Polyethylene Glycol (Miralax (For Daily Use) -) 17 gm PO DAILY [facility] Last Admin: 07/26/17 09:16 Dose: 17 gm Potassium Chloride (K-Dur -) 20 meq PO DAILY [facility] Last Admin: 07/26/17 09:15 Dose: 20 meq - Objective Vital Signs: Vital Signs Temperature 37.0 C 07/26/17 14:56 Pulse Rate 80 07/26/17 14:56 Respiratory Rate 18 07/26/17 14:56 Blood Pressure 130/71 07/26/17 14:56 O2 Sat by Pulse Oximetry (%) 98 07/26/17 09:00 Constitutional: Yes: Well Nourished, No Distress, Calm, Other (confused) Cardiovascular: Yes: Regular Rate and Rhythm. No: Gallop, Murmur, Rub Respiratory: Yes: Regular, CTA Bilaterally. No: Rales, Rhonchi, Wheezes Gastrointestinal: Yes: Normal Bowel Sounds, Soft. No: Distention, Tenderness Extremities: Yes: WNL Edema: No Labs: CBC, BMP 07/26/17 05:10 07/26/17 05:10 INR, PTT INR 1.02 (0.82-1.09) 07/25/17 11:02 Problem List - Problems (1) CVA (cerebral vascular accident) Code(s): I63.9 - CEREBRAL INFARCTION, UNSPECIFIED Qualifiers: CVA mechanism: unspecified Qualified Code(s): I63.9 - Cerebral infarction, unspecified; I63.9 - Cerebral infarction, unspecified; I63.9 - Cerebral infarction, unspecified; I63.9 - Cerebral infarction, unspecified (2) HTN (hypertension) Code(s): I10 - ESSENTIAL (PRIMARY) HYPERTENSION (3) Diabetes Code(s): E11.9 - TYPE 2 DIABETES MELLITUS WITHOUT COMPLICATIONS (4) HLD (hyperlipidemia) Code(s): E78.5 - HYPERLIPIDEMIA, UNSPECIFIED (5) Breast cancer Code(s): C50.919 - MALIGNANT NEOPLASM OF UNSP SITE OF UNSPECIFIED FEMALE BREAST Assessment/Plan (1) CVA (cerebral vascular accident) Assessment/Plan: -appreciate neurology assistance -more consistent with hypertensive changes than subacute CVA -tight glucose control -will continue full strength aspirin Code(s): I63.9 - CEREBRAL INFARCTION, UNSPECIFIED Qualifiers: CVA mechanism: unspecified Qualified Code(s): I63.9 - Cerebral infarction, unspecified; I63.9 - Cerebral infarction, unspecified; I63.9 - Cerebral infarction, unspecified; I63.9 - Cerebral infarction, unspecified (2) HTN (hypertension) Assessment/Plan: -continue home regimen -monitor today for elevation -will adjust as needed Code(s): I10 - ESSENTIAL (PRIMARY) HYPERTENSION (3) Diabetes Assessment/Plan: -continue metformin and levemir -SSI -HgbA1c well controlled Code(s): E11.9 - TYPE 2 DIABETES MELLITUS WITHOUT COMPLICATIONS (4) HLD (hyperlipidemia) Assessment/Plan: -continue lipitor Code(s): E78.5 - HYPERLIPIDEMIA, UNSPECIFIED (5) Breast cancer Assessment/Plan: -continue arimidex Code(s): C50.919 - MALIGNANT NEOPLASM OF UNSP SITE OF UNSPECIFIED FEMALE BREAST (6) 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
[2017-07-26] MEDS: HALOPERIDOL LACTATE 5 MG/ML IM PRN (19:43)
[2017-07-26] MEDS ORDERED: HALOPERIDOL LACTATE 5 MG/ML IM ONE (21:15)
[2017-07-26] MEDS: INSULIN DETEMIR 100 UNITS/ML MDV SQ SCH (21:31)
[2017-07-26] MEDS: ATORVASTATIN CA 10 MG TABLET (FP) PO SCH (21:31)
[2017-07-27 08:03] LABS: BASOPHIL 0.3 % (0-2.0); MCH 28.3 pg (25.7-33.7); MCHC 35.5 g/dl (32.0-36.0); MEAN CELL VOLUME 79.8 fl (80-96); MEAN PLT VOLUME 8.8 fl (7.5-11.1); PLATELET COUNT 199 K/MM3 (134-434); RDW 14.1 % (11.6-15.6)
[2017-07-27 09:01] LABS: ANION GAP 15 (8-16); CALCIUM 9.2 mg/dL (8.5-10.1); CO2 26 mmol/L (21-32); CREATININE 0.8 mg/dL (0.55-1.02); GLUCOSE,RANDOM 154 mg/dL (74-106); MAGNESIUM 2.1 mg/dL (1.8-2.4); PHOSPHOROUS 2.1 mg/dL (2.5-4.9)
[2017-07-27] MEDS: HYDROCHLOROTHIAZIDE 25 MG TABLET (FP) PO SCH (09:02)
[2017-07-27] MEDS: POTASSIUM CHLORIDE TABS 20 MEQ TABLET.ER (FP) PO SCH (09:02)
[2017-07-27] MEDS: ASPIRIN 325 MG ENTERIC COATED TABLET (FP) PO SCH (09:02)
[2017-07-27] MEDS: METOPROLOL TARTRATE 50 MG TABLET (FP) PO SCH ×2 (09:02→21:54)
[2017-07-27] MEDS: LOSARTAN POTASSIUM 50 MG TABLET (FP) PO SCH (09:02)
[2017-07-27] MEDS: MAGNESIUM OXIDE 400 MG TABLET (FP) PO SCH ×2 (09:02→21:54)
[2017-07-27] MEDS ORDERED: METOPROLOL TARTRATE 5 MG/5 ML VIAL IVPUSH PRN (09:16)
[2017-07-27] MEDS ORDERED: METOPROLOL TARTRATE 5 MG/5 ML VIAL ONE (09:17)
[2017-07-27] MEDS ORDERED: dilTIAZem HCL 50 MG/10 ML - 10 ML VIAL IVPUSH ONE (09:48)
[2017-07-27] MEDS ORDERED: KCL 10 MEQ IVPB 10 MEQ/100 ML INFUS.BAG IVPB SCH (10:00)
[2017-07-27] MEDS ORDERED: POTASSIUM CHLORIDE 30 MEQ in SODIUM CHLORIDE 300 ML IVPB ONE (10:30)
[2017-07-27] MEDS ORDERED: POTASSIUM PHOSPHATE IVPB ONE (11:00)
[2017-07-27] MEDS ORDERED: SODIUM CHLORIDE IVPB ONE (11:00)
[2017-07-27] MEDS ORDERED: DILTIAZEM INJECTION 125 MG in DEXTROSE 5%-WATER - 100 ML IVPB SCH (11:00)
--- NOTE | 2017-07-27 11:40 | PN ---
Progress Note, Physician Chief Complaint: Unable to obtain secondary to confusion. Son notes patient not improved - Current Medication List Current Medications: Active Medications Acetaminophen (Tylenol -) 650 mg PO Q4H PRN PRN Reason: FEVER OR PAIN Last Admin: 07/25/17 21:11 Dose: 650 mg Anastrozole (Arimidex -) 1 mg PO DAILY [facility] Last Admin: 07/26/17 11:25 Dose: 1 mg Aspirin (Ecotrin -) 325 mg PO DAILY [facility] Last Admin: 07/26/17 09:19 Dose: 325 mg Atorvastatin Calcium (Lipitor -) 10 mg PO HS [facility] Last Admin: 07/26/17 21:31 Dose: 10 mg Docusate Sodium (Colace -) 100 mg PO BID [facility] Last Admin: 07/26/17 21:32 Dose: 100 mg Haloperidol (Haldol Injection (Fast Acting) -) 1 mg IM Q4H PRN PRN Reason: AGITATION Last Admin: 07/26/17 19:43 Dose: 1 mg Hydralazine HCl (Apresoline Injection -) 10 mg IM Q8H PRN PRN Reason: HYPERTENSION Sodium Chloride (Normal Saline -) 1,000 mls @ 42 mls/hr IV ASDIR [facility] Last Admin: 07/26/17 14:36 Dose: 42 mls/hr Potassium Phosphate 8 mm/ (Sodium Chloride) 250 mls @ 62.5 mls/hr IVPB ONCE ONE Stop: 07/27/17 14:59 Potassium Chloride 30 meq/ (Sodium Chloride) 315 mls @ 88.333 mls/hr IVPB ONCE ONE Stop: 07/27/17 14:03 Last Admin: 07/27/17 10:43 Dose: 88.333 mls/hr Diltiazem HCl 125 mg/ Dextrose 125 mls @ 5 mls/hr IVPB TITR [facility]; 5 MG/HR PRN Reason: Protocol Insulin Detemir (Levemir Vial) 14 units SQ HS [facility] Last Admin: 07/26/17 21:31 Dose: 14 units Losartan Potassium (Cozaar -) 100 mg PO DAILY [facility] Last Admin: 07/27/17 09:02 Dose: 100 mg Magnesium Oxide (Mag-Ox -) 400 mg PO BID [facility] Last Admin: 07/26/17 21:32 Dose: 400 mg Metformin HCl (Glucophage -) 1,000 mg PO BIDAC [facility] Last Admin: 07/26/17 16:44 Dose: 1,000 mg Metoprolol Tartrate (Lopressor -) 50 mg PO BID [facility] Last Admin: 07/26/17 21:31 Dose: 50 mg Metoprolol Tartrate (Lopressor Injection -) 5 mg IVPUSH Q4H PRN PRN Reason: TACHYCARDIA Ondansetron HCl (Zofran Injection) 4 mg IVPUSH Q6H PRN PRN Reason: NAUSEA Last Admin: 07/25/17 18:40 Dose: 4 mg Polyethylene Glycol (Miralax (For Daily Use) -) 17 gm PO DAILY [facility] Last Admin: 07/26/17 09:16 Dose: 17 gm Potassium Chloride (K-Dur -) 20 meq PO DAILY [facility] Last Admin: 07/26/17 09:15 Dose: 20 meq - Objective Vital Signs: Vital Signs Temperature 36.6 C 07/26/17 22:00 Pulse Rate 84 07/26/17 22:00 Respiratory Rate 18 07/26/17 22:00 Blood Pressure 156/94 07/26/17 22:00 O2 Sat by Pulse Oximetry (%) 98 07/26/17 21:00 Constitutional: Yes: No Distress, Calm, Other (confused) Cardiovascular: Yes: Tachycardia, Pulse Irregular. No: Gallop, Murmur, Rub Respiratory: Yes: Regular, CTA Bilaterally. No: Rales, Rhonchi, Wheezes Gastrointestinal: Yes: Normal Bowel Sounds, Soft. No: Distention, Tenderness Extremities: Yes: WNL Edema: No Labs: CBC, BMP 07/27/17 05:20 07/27/17 05:20 INR, PTT INR 1.02 (0.82-1.09) 07/25/17 11:02 Problem List - Problems (1) CVA (cerebral vascular accident) Code(s): I63.9 - CEREBRAL INFARCTION, UNSPECIFIED Qualifiers: CVA mechanism: unspecified Qualified Code(s): I63.9 - Cerebral infarction, unspecified (2) Diabetes Code(s): E11.9 - TYPE 2 DIABETES MELLITUS WITHOUT COMPLICATIONS (3) HTN (hypertension) Code(s): I10 - ESSENTIAL (PRIMARY) HYPERTENSION (4) HLD (hyperlipidemia) Code(s): E78.5 - HYPERLIPIDEMIA, UNSPECIFIED (5) Breast cancer Code(s): C50.919 - MALIGNANT NEOPLASM OF UNSP SITE OF UNSPECIFIED FEMALE BREAST (6) Atrial fibrillation with RVR Code(s): I48.91 - UNSPECIFIED ATRIAL FIBRILLATION Assessment/Plan (1) CVA (cerebral vascular accident) Assessment/Plan: -appreciate neurology assistance -more consistent with hypertensive changes than subacute CVA -tight glucose control -will continue full strength aspirin Code(s): I63.9 - CEREBRAL INFARCTION, UNSPECIFIED Qualifiers: CVA mechanism: unspecified Qualified Code(s): I63.9 - Cerebral infarction, unspecified; I63.9 - Cerebral infarction, unspecified; I63.9 - Cerebral infarction, unspecified; I63.9 - Cerebral infarction, unspecified (2) HTN (hypertension) Assessment/Plan: -continue home regimen -however may need to adjust since on diltiazem gtt for afib control Code(s): I10 - ESSENTIAL (PRIMARY) HYPERTENSION (3) Diabetes Assessment/Plan: -continue metformin and levemir -SSI -HgbA1c well controlled Code(s): E11.9 - TYPE 2 DIABETES MELLITUS WITHOUT COMPLICATIONS (4) HLD (hyperlipidemia) Assessment/Plan: -continue lipitor Code(s): E78.5 - HYPERLIPIDEMIA, UNSPECIFIED (5) Breast cancer Assessment/Plan: -continue arimidex Code(s): C50.919 - MALIGNANT NEOPLASM OF UNSP SITE OF UNSPECIFIED FEMALE BREAST (6) 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
[2017-07-27] MEDS: ANASTROZOLE 1 MG TABLET PO SCH (11:41)
[2017-07-27] MEDS: DOCUSATE SODIUM 100 MG CAPSULE (FP) PO SCH ×2 (11:42→21:53)
--- NOTE | 2017-07-27 12:03 | CON.CARD ---
Cardiology Consult (text) - Consultation Consultation Note: cc: ams, facial droop, slurred speech hpi: 86 f hx htn, hld, dm, here with acute cva. Currently with ams/lethargy and cannot give hx. Per charts no cp, sob, dizzy, loc, le edema. While here on tele developed new onset afib with rvr. pmh: per hpi psh: appendectomy social: no tob fam: nc ros: unable to obtain 2/2 ams meds: Home Medications Medication Instructions Recorded Aspirin [ASA -] 81 mg PO DAILY #0 tab.chew 05/18/13 Atorvastatin Ca [Lipitor] 10 mg PO DAILY #0 tablet 05/18/13 Magnesium Oxide [Mag-Ox -] 400 mg PO BID #0 tablet 05/18/13 Metformin HCl [Glucophage -] 1,000 mg PO BID #0 tablet 05/18/13 Metoprolol Tartrate [Lopressor -] 50 mg PO BID #0 tablet 05/18/13 Multivit-Min/FA/Lycopene/Lut 1 each PO DAILY #0 tablet 05/18/13 [Centrum Silver Tablet] Potassium Chloride [Klor-Con] 20 meq PO DAILY #0 packet 05/18/13 Anastrozole [Arimidex -] 1 mg PO DAILY 11/13/14 Calcium Carbonate [Tums] 500 mg PO DAILY 11/13/14 Insulin (Levemir) [Levemir Flexpen 14 units SQ HS 11/13/14 -] Losartan/Hydrochlorothiazide 1 each PO DAILY 11/13/14 [Losartan-Hctz 100-25 mg Tab] pe: Vital Signs Period Temp Pulse Resp BP Sys/Wolf Pulse Ox Last 24 Hr 97.6 F-98.6 F 57-84 18-18 130-156/71-94 98 nad no jvd irreg tachy s1 s2 no mrg cta bl, poor eff no le e/c/c abd nt nd pos bs no jaundice diaphoresis +dp pt no carotid bruits lethargic Laboratory Last Values WBC 12.0 K/mm3 (4.0-10.0) H 07/27/17 05:20 RBC 6.24 M/mm3 (3.60-5.2) H 07/27/17 05:20 Hgb 17.7 GM/dL (10.7-15.3) H D 07/27/17 05:20 Hct 49.8 % (32.4-45.2) H D 07/27/17 05:20 MCV 79.8 fl (80-96) L 07/27/17 05:20 MCH 28.3 pg (25.7-33.7) 07/27/17 05:20 MCHC 35.5 g/dl (32.0-36.0) 07/27/17 05:20 RDW 14.1 % (11.6-15.6) 07/27/17 05:20 Plt Count 199 K/MM3 (134-434) 07/27/17 05:20 MPV 8.8 fl (7.5-11.1) 07/27/17 05:20 Neutrophils % 84.0 % (42.8-82.8) H D 07/27/17 05:20 Lymphocytes % 11.0 % (8-40) D 07/27/17 05:20 Monocytes % 4.7 % (3.8-10.2) 07/27/17 05:20 Eosinophils % 0.0 % (0-4.5) D 07/27/17 05:20 Basophils % 0.3 % (0-2.0) 07/27/17 05:20 PT with INR 11.50 SEC (9.98-11.88) 07/25/17 11:02 INR 1.02 (0.82-1.09) 07/25/17 11:02 Sodium 129 mmol/L (136-145) L 07/27/17 05:20 Potassium 3.0 mmol/L (3.5-5.1) L 07/27/17 05:20 Chloride 88 mmol/L (98-107) L 07/27/17 05:20 Carbon Dioxide 26 mmol/L (21-32) 07/27/17 05:20 Anion Gap 15 (8-16) 07/27/17 05:20 BUN 21 mg/dL (7-18) H 07/27/17 05:20 Creatinine 0.8 mg/dL (0.55-1.02) D 07/27/17 05:20 Creat Clearance w eGFR > 60 (>60) 07/25/17 11:02 POC Glucometer 163 UNITS (80-120) 07/27/17 06:05 Random Glucose 154 mg/dL (74-106) H D 07/27/17 05:20 Hemoglobin A1c % 6.4 % (4.8-6.0) H 07/26/17 05:10 Calcium 9.2 mg/dL (8.5-10.1) 07/27/17 05:20 Phosphorus 2.1 mg/dL (2.5-4.9) L D 07/27/17 05:20 Magnesium 2.1 mg/dL (1.8-2.4) 07/27/17 05:20 Total Bilirubin 1.0 mg/dL (0.2-1.0) D 07/25/17 11:02 AST 32 U/L (15-37) 07/25/17 11:02 ALT 22 U/L (12-78) 07/25/17 11:02 Alkaline Phosphatase 116 U/L (45-117) D 07/25/17 11:02 Creatine Kinase 99 IU/L (26-192) 07/26/17 05:10 Troponin I 0.07 ng/ml (0.00-0.05) H 07/26/17 05:10 Total Protein 7.6 g/dl (6.4-8.2) D 07/25/17 11:02 Albumin 5.1 g/dl (3.4-5.0) H D 07/25/17 11:02 Triglycerides 162 mg/dL (35-160) H 07/25/17 11:02 Cholesterol 165 mg/dL (50-200) 07/25/17 11:02 Total LDL Cholesterol 76 mg/dL (5-100) 07/25/17 11:02 HDL Cholesterol 69 mg/dL (40-60) H 07/25/17 11:02 Urine Color Straw 07/25/17 11:20 Urine Appearance Clear 07/25/17 11:20 Urine pH 8.0 (5.0-8.0) D 07/25/17 11:20 Ur Specific [place] 1.009 (1.001-1.035) 07/25/17 11:20 Urine Protein 3+ (NEGATIVE) H 07/25/17 11:20 Urine Glucose (UA) 1+ (NEGATIVE) H D 07/25/17 11:20 Urine Ketones Trace (NEGATIVE) H 07/25/17 11:20 Urine Blood Negative (NEGATIVE) 07/25/17 11:20 Urine Nitrite Negative (NEGATIVE) 07/25/17 11:20 Urine Bilirubin Negative (NEGATIVE) 07/25/17 11:20 Urine Urobilinogen Negative mg/dL (0.2-1.0) 07/25/17 11:20 Ur Leukocyte Esterase Negative (NEGATIVE) 07/25/17 11:20 Urine RBC 0-2 /hpf (0-3) 07/25/17 11:20 Urine WBC Negative /hpf (3-5) 07/25/17 11:20 Urine Mucus Rare 07/25/17 11:20 Blood Type A NEGATIVE 07/25/17 11:02 Antibody Screen Positive H 07/25/17 11:02 Antibody Identification No Result Required. 07/25/17 11:02 Antigen Identification Y 07/25/17 11:02 tele: afib with rvr cxr: clear lungs ecg 07/25/17: sr, nl intervals, lvh, no ischemic changes carotids 07/2017: no sig stenosis a/p: 86 f hx htn, hld, dm, here with acute cva. htn: -stable, resume bb when pt able to take po hld: -cont statin when taking po new afib with rvr: -rate fast and not taking po meds so will give iv dilt prn for now -chadsvasc warrants ac, start if/when possible per neuro in setting of acute cva -cont tele -check echo cva: -neuro following
[2017-07-27] MEDS ORDERED: POTASSIUM PHOSPHATE 8 MM in SODIUM CHLORIDE 250 ML IVPB ONE (12:38)
[2017-07-27] MEDS ORDERED: PT OWN MED DRAWER 7, Y5N ONE (13:01)
[2017-07-27] MEDS: POLYETHYLENE GLYCOL 3350 119 GM BTL PO SCH (14:42)
[2017-07-27 15:17] LABS: OSMOLALITY,SERUM 280 mosm/kg (278-305)
--- NOTE | 2017-07-27 16:04 | PN ---
Progress Note, [employer]IN [employer]REL FILLER - Note Progress Note: Selected Entries 07/26/17 07/26/17 07/26/17 02:00 10:00 14:56 Breakfast Lunch Temperature 97.5 F L 98 F 98.6 F 07/26/17 07/26/17 07/27/17 18:00 22:00 10:00 Breakfast Lunch Temperature 97.6 F 97.8 F 98.6 F 07/27/17 07/27/17 10:36 14:00 Breakfast 25% Lunch 25% Temperature 99.9 F H Laboratory Tests 07/25/17 07/26/17 07/27/17 11:02 05:10 05:20 WBC 9.0 D 10.6 H 12.0 H Medical events noted. Tolerating diet.
[2017-07-27] MEDS: metFORMIN HCL 500 MG TABLET (FP) PO SCH (16:13)
[2017-07-27] MEDS: ACETAMINOPHEN 325 MG TABLET (FP) PO PRN ×2 (16:13→21:52)
--- NOTE | 2017-07-27 16:47 | PN ---
Progress Note (short form) - Note Progress Note: seen in followup for fever this afternoon lethargic after haldol but nurse reports she was able to eat lunch now with rectal temp 101.3 Vital Signs Period Temp Pulse Resp BP Sys/Wolf Pulse Ox Last 24 Hr 97.6 F-101.3 F 57-144 18-18 111-196/65-98 98-98 cor-rrr llungs clear abd soft,nt ext no edema CBC, BMP 07/27/17 05:20 07/27/17 05:20 Microbiology 07/25/17 11:20 Urine - Urine Clean Catch Urine Culture - Preliminary Escherichia Coli Enterococcus Faecalis a/p fevers- cxray blood cultures, ua and urine culture start unasyn cover urine and aspiration management of CVA/Dementia/HTN per PMD Problem List - Problems (1) CVA (cerebral vascular accident) Code(s): I63.9 - CEREBRAL INFARCTION, UNSPECIFIED Qualifiers: CVA mechanism: unspecified Qualified Code(s): I63.9 - Cerebral infarction, unspecified (2) HTN (hypertension) Code(s): I10 - ESSENTIAL (PRIMARY) HYPERTENSION (3) Asymptomatic bacteriuria Code(s): R82.71 - BACTERIURIA (4) Dementia Code(s): F03.90 - UNSPECIFIED DEMENTIA WITHOUT BEHAVIORAL DISTURBANCE
[2017-07-27] MEDS: SODIUM CHLORIDE 1,000 ML IV SCH (20:57)
[2017-07-27 20:58] LABS: URINE APPEARANCE TURBID; URINE BILIRUBIN NEGATIVE (NEGATIVE); URINE BLOOD 1+ (NEGATIVE); URINE COLOR YELLOW; URINE GLUCOSE (UA) NEGATIVE (NEGATIVE); URINE KETONE NEGATIVE (NEGATIVE); URINE NITRITE NEGATIVE (NEGATIVE); URINE UROBILINOGEN NEGATIVE mg/dL (0.2-1.0)
[2017-07-27 20:59] LABS: URINE PROTEIN 2+ (NEGATIVE)
[2017-07-27] MEDS: AMPICILLIN NA/SULBACTAM NA 1.5 GM in SODIUM CHLORIDE 100 ML IVPB SCH ×2 (20:59→21:16)
[2017-07-27] MEDS: ATORVASTATIN CA 10 MG TABLET (FP) PO SCH (21:53)
[2017-07-27 22:03] LABS: URINE MUCUS MODERATE; URINE RBC 16 /hpf (0-3); URINE WBC 1013 /hpf (3-5)
[2017-07-27] MEDS: INSULIN DETEMIR 100 UNITS/ML MDV SQ SCH (22:09)
[2017-07-27 22:52] LABS: URINE LEUK ESTERASE 1+ (NEGATIVE)
[2017-07-28] MEDS: ACETAMINOPHEN 325 MG TABLET (FP) PO PRN (03:00)
[2017-07-28] MEDS: AMPICILLIN NA/SULBACTAM NA 1.5 GM in SODIUM CHLORIDE 100 ML IVPB SCH ×5 (03:17→18:24)
[2017-07-28 07:57] LABS: BASOPHIL 0.3 % (0-2.0); EOSINOPHIL 0.3 % (0-4.5); MCH 27.9 pg (25.7-33.7); MCHC 34.2 g/dl (32.0-36.0); MEAN CELL VOLUME 81.6 fl (80-96); MEAN PLT VOLUME 8.7 fl (7.5-11.1); NEUTROPHILS 64.9 % (42.8-82.8); PLATELET COUNT 213 K/MM3 (134-434); RDW 14.1 % (11.6-15.6); WHITE BLOOD COUNT 12.3 K/mm3 (4.0-10.0)
[2017-07-28 09:18] LABS: ANION GAP 18 (8-16); CALCIUM 8.3 mg/dL (8.5-10.1); CO2 24 mmol/L (21-32); CREATININE 2.2 mg/dL (0.55-1.02); GLUCOSE,RANDOM 132 mg/dL (74-106); MAGNESIUM 2.8 mg/dL (1.8-2.4); PHOSPHOROUS 4.6 mg/dL (2.5-4.9)
[2017-07-28] MEDS ORDERED: PT OWN MED DRAWER 7, Y5N ONE (11:03)
[2017-07-28] MEDS: LOSARTAN POTASSIUM 50 MG TABLET (FP) PO SCH (11:11)
[2017-07-28] MEDS: POTASSIUM CHLORIDE TABS 20 MEQ TABLET.ER (FP) PO SCH (11:11)
[2017-07-28] MEDS: ASPIRIN 325 MG ENTERIC COATED TABLET (FP) PO SCH (11:11)
[2017-07-28] MEDS: DOCUSATE SODIUM 100 MG CAPSULE (FP) PO SCH ×2 (11:11→22:41)
[2017-07-28] MEDS: ANASTROZOLE 1 MG TABLET PO SCH (11:11)
[2017-07-28] MEDS: MAGNESIUM OXIDE 400 MG TABLET (FP) PO SCH (11:11)
[2017-07-28] MEDS: METOPROLOL TARTRATE 50 MG TABLET (FP) PO SCH ×2 (11:11→22:41)
[2017-07-28] MEDS: POLYETHYLENE GLYCOL 3350 119 GM BTL PO SCH (11:12)
--- NOTE | 2017-07-28 12:05 | PN ---
Progress Note, [employer] - Note Progress Note: Selected Entries 07/26/17 07/26/17 07/26/17 02:00 09:42 10:00 Breakfast NPO Lunch Supper Temperature 97.5 F L 98 F 07/26/17 07/26/17 07/26/17 14:56 18:00 22:00 Breakfast Lunch 50% Supper 50% Temperature 98.6 F 97.6 F 97.8 F 07/27/17 07/27/17 07/27/17 03:45 10:00 10:36 Breakfast 25% Lunch Supper Temperature 101.3 F H 98.6 F 07/27/17 07/27/17 07/27/17 14:00 15:45 18:00 Breakfast Lunch 25% Supper Temperature 99.9 F H 101.3 F H 98.3 F 07/27/17 07/27/17 07/28/17 19:45 19:47 02:00 Breakfast Lunch Supper 25% Temperature 99.5 F 101.1 F H 07/28/17 07/28/17 05:01 11:45 Breakfast 50% Lunch Supper Temperature 98.5 F Laboratory Tests 07/26/17 07/27/17 07/28/17 05:10 05:20 06:00 WBC 10.6 H 12.0 H 12.3 H CXR Cardiomegaly. No acute disease. Feed only when alert. Observe PO tolerance.
--- NOTE | 2017-07-28 12:39 | PN ---
Progress Note (short form) - Note Progress Note: c/op generalized weakness L >R. denies CP, SOB, fever, chills, cough, N/V/C/D, dysuria or urinary frequncy Current Medications Generic Name Dose Route Start Last Admin Trade Name Freq PRN Reason Stop Dose Admin Acetaminophen 650 mg 07/25/17 13:54 07/28/17 03:00 Tylenol - PO 650 mg Q4H PRN Administration FEVER OR PAIN Anastrozole 1 mg 07/26/17 10:00 07/28/17 11:11 Arimidex - PO 1 mg DAILY VERO Administration Aspirin 325 mg 07/26/17 10:00 07/28/17 11:11 Ecotrin - PO 325 mg DAILY VERO Administration Atorvastatin Calcium 10 mg 07/25/17 22:00 07/27/17 21:53 Lipitor - PO 10 mg HS VERO Administration Diltiazem HCl 10 mg 07/27/17 11:55 Cardizem Injection - IVPUSH Q4H PRN TACHYCARDIA Docusate Sodium 100 mg 07/25/17 22:00 07/28/17 11:11 Colace - PO 100 mg BID VERO Administration Haloperidol 1 mg 07/26/17 16:16 07/26/17 19:43 Haldol Injection (Fast Acting) - IM 1 mg Q4H PRN Administration AGITATION Hydralazine HCl 10 mg 07/25/17 14:04 Apresoline Injection - IM Q8H PRN HYPERTENSION Sodium Chloride 1,000 mls @ 42 mls/hr 07/25/17 14:00 07/27/17 20:57 Normal Saline - IV Not Given ASDIR VERO Ampicillin Sodium/Sulbactam 100 mls @ 200 mls/hr 07/27/17 16:45 07/28/17 11: 10 Sodium 1.5 gm/ Sodium Chloride IVPB 200 mls/hr Q6H-IV VERO Administration Insulin Detemir 14 units 07/25/17 22:00 07/27/17 22:09 Levemir Vial SQ Not Given HS VERO Losartan Potassium 100 mg 07/26/17 10:00 07/28/17 11:11 Cozaar - PO 100 mg DAILY VERO Administration Magnesium Oxide 400 mg 07/25/17 22:00 07/28/17 11:11 Mag-Ox - PO 400 mg BID VERO Administration Metformin HCl 1,000 mg 07/25/17 16:30 07/27/17 16:13 Glucophage - PO 1,000 mg BIDAC VERO Administration Metoprolol Tartrate 50 mg 07/26/17 10:00 07/28/17 11:11 Lopressor - PO 50 mg BID VERO Administration Ondansetron HCl 4 mg 07/25/17 13:54 07/25/17 18:40 Zofran Injection IVPUSH 4 mg Q6H PRN Administration NAUSEA Polyethylene Glycol 17 gm 07/26/17 10:00 07/28/17 11:12 Miralax (For Daily Use) - PO 17 gm DAILY VERO Administration Potassium Chloride 20 meq 07/26/17 10:00 07/28/17 11:11 K-Dur - PO 20 meq DAILY VERO Administration Last Vital Signs Temp Pulse Resp BP Pulse Ox 98.5 F 67 20 102/65 95 07/28/17 05:01 07/28/17 05:01 07/28/17 05:01 07/28/17 05:01 07/27/17 21:00 general NAD CV S1 S2 RRR Lungs CTA B/l no wheezing/rale/rhonchi Abdomen soft NT/ND Extremities no pedal edema Neuro slow to respond, slurred speech. answers most questions no and then corrects her answer. follows some simple commands (can not follow 2 step commands). strength equal B/L LE no pronator drift. unable to assess sensation. gait testing deferred CBCD WBC 12.3 K/mm3 (4.0-10.0) H 07/28/17 06:00 RBC 5.65 M/mm3 (3.60-5.2) H 07/28/17 06:00 Hgb 15.8 GM/dL (10.7-15.3) H D 07/28/17 06:00 Hct 46.1 % (32.4-45.2) H 07/28/17 06:00 MCV 81.6 fl (80-96) 07/28/17 06:00 MCHC 34.2 g/dl (32.0-36.0) 07/28/17 06:00 RDW 14.1 % (11.6-15.6) 07/28/17 06:00 Plt Count 213 K/MM3 (134-434) 07/28/17 06:00 MPV 8.7 fl (7.5-11.1) 07/28/17 06:00 CMP Sodium 136 mmol/L (136-145) 07/28/17 06:00 Potassium 3.1 mmol/L (3.5-5.1) L 07/28/17 06:00 Chloride 94 mmol/L (98-107) L 07/28/17 06:00 Carbon Dioxide 24 mmol/L (21-32) 07/28/17 06:00 Anion Gap 18 (8-16) H 07/28/17 06:00 BUN 49 mg/dL (7-18) H D 07/28/17 06:00 Creatinine 2.2 mg/dL (0.55-1.02) H D 07/28/17 06:00 Creat Clearance w eGFR > 60 (>60) 07/25/17 11:02 Calcium 8.3 mg/dL (8.5-10.1) L 07/28/17 06:00 Total Bilirubin 1.0 mg/dL (0.2-1.0) D 07/25/17 11:02 AST 32 U/L (15-37) 07/25/17 11:02 ALT 22 U/L (12-78) 07/25/17 11:02 Alkaline Phosphatase 116 U/L (45-117) D 07/25/17 11:02 Total Protein 7.6 g/dl (6.4-8.2) D 07/25/17 11:02 Albumin 5.1 g/dl (3.4-5.0) H D 07/25/17 11:02 A/P 86yo F wtih PMH CVA, HTN, DM, breast ca and dyslipidemia presented to the ER with confusion and slurred speech 1. Acute hypertensive encephalopathy- as per neuro not signs of acute CVA. slight improvement per brother who is present bedside. tolerating purree diet. cont PT, speech and swallow therapy. tight glycemic and BP control. carotid dopplers done. awaiting echo. neuro on board. on full dose asa, statin 2. Afib with RVR- self converted to NSR. elevated [id number]. would benefit from anticoagulation. will need to d/w neuro prior to starting 3. sepsis due to UTI and possible aspiration- Tm 101.2. UA +. inital Cx +ecoli allen sensitive. repeat Cx sent. on unasyn day 2. ID on board. f/u Cx 4. HOWARD- likely due to sepsis. will d/c metformin and ARB. will increase NS to 75cc/H.check bladder scan to see if retaining. check urine studies. strict I&O. 5. Hypokalemia- KCl 10meq x2. Kcl 40meq 6. Hypermagnesemia- d/c mg po 7. polycythemia- likely dehydration. 8. DVT ppx- will start hep sq Visit type - Emergency Visit Emergency Visit: Yes ED Registration Date: 07/25/17 Care time: The patient presented to the Emergency Department on the above date and was hospitalized for further evaluation of their emergent condition. - New Patient This patient is new to me today: Yes Date on this admission: 07/28/17 - Critical Care Critical Care patient: No - Discharge Referral Referred to [facility] Med P.C.: No
[2017-07-28] MEDS ORDERED: POTASSIUM CHLORIDE ORAL LIQUID 20 MEQ/15 ML PO ONE (12:40)
--- NOTE | 2017-07-28 12:42 | PN ---
Progress Note (short form) - Note Progress Note: s: no cp sob palps dizzy o: Vital Signs Period Temp Pulse Resp BP Sys/Wolf Pulse Ox Last 24 Hr 98.3 F-101.3 F 67-95 18-20 102-135/60-78 95 nad no jvd irreg tachy s1 s2 no mrg cta bl nl eff no le e/c/c abd nt nd pos bs no jaundice diaphoresis awake alert Current Medications Generic Name Dose Route Start Last Admin Trade Name Freq PRN Reason Stop Dose Admin Acetaminophen 650 mg 07/25/17 13:54 07/28/17 03:00 Tylenol - PO 650 mg Q4H PRN Administration FEVER OR PAIN Anastrozole 1 mg 07/26/17 10:00 07/28/17 11:11 Arimidex - PO 1 mg DAILY VERO Administration Aspirin 325 mg 07/26/17 10:00 07/28/17 11:11 Ecotrin - PO 325 mg DAILY VERO Administration Atorvastatin Calcium 10 mg 07/25/17 22:00 07/27/17 21:53 Lipitor - PO 10 mg HS VERO Administration Diltiazem HCl 10 mg 07/27/17 11:55 Cardizem Injection - IVPUSH Q4H PRN TACHYCARDIA Docusate Sodium 100 mg 07/25/17 22:00 07/28/17 11:11 Colace - PO 100 mg BID VERO Administration Haloperidol 1 mg 07/26/17 16:16 07/26/17 19:43 Haldol Injection (Fast Acting) - IM 1 mg Q4H PRN Administration AGITATION Hydralazine HCl 10 mg 07/25/17 14:04 Apresoline Injection - IM Q8H PRN HYPERTENSION Sodium Chloride 1,000 mls @ 42 mls/hr 07/25/17 14:00 07/27/17 20:57 Normal Saline - IV Not Given ASDIR VERO Ampicillin Sodium/Sulbactam 100 mls @ 200 mls/hr 07/27/17 16:45 07/28/17 11: 10 Sodium 1.5 gm/ Sodium Chloride IVPB 200 mls/hr Q6H-IV VERO Administration Insulin Detemir 14 units 07/25/17 22:00 07/27/17 22:09 Levemir Vial SQ Not Given HS VERO Losartan Potassium 100 mg 07/26/17 10:00 07/28/17 11:11 Cozaar - PO 100 mg DAILY VERO Administration Magnesium Oxide 400 mg 07/25/17 22:00 07/28/17 11:11 Mag-Ox - PO 400 mg BID VERO Administration Metoprolol Tartrate 50 mg 07/26/17 10:00 07/28/17 11:11 Lopressor - PO 50 mg BID VERO Administration Ondansetron HCl 4 mg 07/25/17 13:54 07/25/17 18:40 Zofran Injection IVPUSH 4 mg Q6H PRN Administration NAUSEA Polyethylene Glycol 17 gm 07/26/17 10:00 07/28/17 11:12 Miralax (For Daily Use) - PO 17 gm DAILY VERO Administration Potassium Chloride 20 meq 07/26/17 10:00 07/28/17 11:11 K-Dur - PO 20 meq DAILY VERO Administration CBC, BMP 07/28/17 06:00 07/28/17 06:00 tele: sr cxr: clear lungs ecg 07/25/17: sr, nl intervals, lvh, no ischemic changes carotids 07/2017: no sig stenosis a/p: 86 f hx htn, hld, dm, here with acute cva. htn: -stable, resume bb when pt able to take po hld: -cont statin when taking po new afib with rvr: -converted to sr on own 07/27 -cont bb, tele -chadsvasc warrants ac, start if/when possible per neuro in setting of acute cva -check echo cva: -neuro following
[2017-07-28] MEDS ORDERED: SODIUM CHLORIDE 1,000 ML IV SCH (13:15)
[2017-07-28] MEDS ORDERED: POTASSIUM CHLORIDE 20 MEQ in SODIUM CHLORIDE 250 ML IVPB ONE (14:00)
--- NOTE | 2017-07-28 16:37 | EKG ---
Test Reason : Blood Pressure : / mmHG Vent. Rate : 146 BPM Atrial Rate : 147 BPM P-R Int : 000 ms QRS Dur : 106 ms QT Int : 294 ms P-R-T Axes : 000 -61 117 degrees QTc Int : 458 ms possible afib with rvr LEFT ANTERIOR FASCICULAR BLOCK LEFT VENTRICULAR HYPERTROPHY WITH REPOLARIZATION ABNORMALITY CANNOT RULE OUT INFERIOR INFARCT (MASKED BY FASCICULAR BLOCK?) , POSSIBLY ACUTE ACUTE ND / STEMI Consider right ventricular involvement in acute inferior infarct ABNORMAL ECG WHEN COMPARED WITH ECG OF 25-JUL-2017 11:59, CURRENT UNDETERMINED RHYTHM PRECLUDES RHYTHM COMPARISON, NEEDS REVIEW ST NOW DEPRESSED IN ANTEROLATERAL LEADS NONSPECIFIC T WAVE ABNORMALITY NO LONGER EVIDENT IN INFERIOR LEADS T WAVE INVERSION LESS EVIDENT IN LATERAL LEADS Confirmed by BRIDGETT ARMSTRONG MD ([id number]) on 07/28/2017 4:37:13 PM Referred By: Shawna PICKENS Confirmed By:BRIDGETT ARMSTRONG MD
--- NOTE | 2017-07-28 17:04 | PN ---
Progress Note (short form) - Note Progress Note: apparently more awake today, more appropriate sleeping now Vital Signs Period Temp Pulse Resp BP Sys/Wolf Pulse Ox Last 24 Hr 98.1 F-101.1 F 67-95 18-22 102-140/60-78 94-95 cor-rrr lulngs clear abd soft,nt ext no edema CBC, BMP 07/28/17 06:00 07/28/17 06:00 Microbiology 07/25/17 11:20 Urine - Urine Clean Catch Urine Culture - Final Escherichia Coli Enterococcus Faecalis a/p feversimproved- UTI- continue unsyn f/u cultures in am management of CVA/Dementia/HTN per PMD increased creatinine c/w dehydration- continue ivf Problem List - Problems (1) CVA (cerebral vascular accident) Code(s): I63.9 - CEREBRAL INFARCTION, UNSPECIFIED Qualifiers: CVA mechanism: unspecified Qualified Code(s): I63.9 - Cerebral infarction, unspecified (2) HTN (hypertension) Code(s): I10 - ESSENTIAL (PRIMARY) HYPERTENSION (3) Asymptomatic bacteriuria Code(s): R82.71 - BACTERIURIA (4) Dementia Code(s): F03.90 - UNSPECIFIED DEMENTIA WITHOUT BEHAVIORAL DISTURBANCE
[2017-07-28] MEDS: HEPARIN NA (PORCINE) 5,000 UNITS/ML 1ML VIAL SQ SCH (22:41)
[2017-07-28] MEDS: ATORVASTATIN CA 10 MG TABLET (FP) PO SCH (22:41)
[2017-07-28] MEDS: INSULIN DETEMIR 100 UNITS/ML MDV SQ SCH (23:00)
[2017-07-29] MEDS: AMPICILLIN NA/SULBACTAM NA 1.5 GM in SODIUM CHLORIDE 100 ML IVPB SCH ×3 (02:05→17:32)
[2017-07-29] MEDS: dilTIAZem HCL 50 MG/10 ML - 10 ML VIAL IVPUSH PRN (06:53)
[2017-07-29] MEDS: METOPROLOL TARTRATE 50 MG TABLET (FP) PO SCH ×2 (09:39→21:02)
[2017-07-29] MEDS: DOCUSATE SODIUM 100 MG CAPSULE (FP) PO SCH ×2 (09:39→21:02)
[2017-07-29] MEDS: ASPIRIN 325 MG ENTERIC COATED TABLET (FP) PO SCH (09:39)
[2017-07-29] MEDS: POTASSIUM CHLORIDE TABS 20 MEQ TABLET.ER (FP) PO SCH (09:39)
[2017-07-29] MEDS: HEPARIN NA (PORCINE) 5,000 UNITS/ML 1ML VIAL SQ SCH ×2 (09:42→21:01)
[2017-07-29] MEDS: POLYETHYLENE GLYCOL 3350 119 GM BTL PO SCH (09:44)
[2017-07-29] MEDS: ANASTROZOLE 1 MG TABLET PO SCH (10:00)
[2017-07-29 10:04] LABS: ANION GAP 10 (8-16); CALCIUM 8.2 mg/dL (8.5-10.1); CO2 27 mmol/L (21-32); CREATININE 1.1 mg/dL (0.55-1.02); GLUCOSE,RANDOM 250 mg/dL (74-106)
--- NOTE | 2017-07-29 10:51 | PN ---
Progress Note, EVENT ORGANIZER - Note Progress Note: Selected Entries 07/28/17 07/28/17 07/28/17 02:00 05:01 10:00 Breakfast Lunch Supper Temperature 101.1 F H 98.5 F 98.9 F 07/28/17 07/28/17 07/28/17 11:45 14:00 18:00 Breakfast 50% Lunch 50% Supper Temperature 98.1 F 98.0 F 07/28/17 07/28/17 07/29/17 20:03 22:00 02:00 Breakfast Lunch Supper 50% Temperature 98.3 F 98.5 F 07/29/17 06:00 Breakfast Lunch Supper Temperature 98.5 F Laboratory Tests 07/25/17 07/26/17 07/27/17 11:02 05:10 05:20 WBC 9.0 D 10.6 H 12.0 H 07/28/17 06:00 WBC 12.3 H ID- UTI CXR- NAD Awake, verbal. On soft diet, chopped meat, thin liquid. Limited dentition.
[2017-07-29] MEDS ORDERED: POTASSIUM CHLORIDE ORAL LIQUID 20 MEQ/15 ML PO ONE (11:15)
--- NOTE | 2017-07-29 11:19 | PN ---
Physical Exam: Medicine coverage for Dr. Falcon SUBJECTIVE: Patient seen and examined. She has no acute complaints, she is aware of daughter at bedside, self, moments of delirium. Making jokes about her toothless smile OBJECTIVE: Vital Signs Period Temp Pulse Resp BP Sys/Wolf Pulse Ox Last 24 Hr 98.0 F-98.5 F 66-84 20-20 114-150/60-91 96 Pe Neuro: alert, awake, cn 2-12intact, 5/5 upper ext 5/5 no facial droop, aware of birthday month, and year Heent: poor dentition Pulm: CTAB CV: s1 s2 irregular rhythm Abd: s nt nd +bs Ext: Warm + DP pulses, no le edema Laboratory Results - last 24 hr 07/28/17 07/28/17 07/28/17 12:03 17:54 22:43 Sodium Potassium Chloride Carbon Dioxide Anion Gap BUN Creatinine POC Glucometer 134 113 139 Random Glucose Calcium 07/29/17 07/29/17 05:45 09:25 Sodium 138 Potassium 3.2 L Chloride 101 Carbon Dioxide 27 Anion Gap 10 BUN 39 H D Creatinine 1.1 H D POC Glucometer 136 Random Glucose 250 H D Calcium 8.2 L Active Medications Generic Name Dose Route Start Last Admin Trade Name Freq PRN Reason Stop Dose Admin Acetaminophen 650 mg 07/25/17 13:54 07/28/17 03:00 Tylenol - PO 650 mg Q4H PRN Administration FEVER OR PAIN Anastrozole 1 mg 07/26/17 10:00 07/28/17 11:11 Arimidex - PO 1 mg DAILY VERO Administration Aspirin 325 mg 07/26/17 10:00 07/29/17 09:39 Ecotrin - PO 325 mg DAILY VERO Administration Atorvastatin Calcium 10 mg 07/25/17 22:00 07/28/17 22:41 Lipitor - PO 10 mg HS VERO Administration Diltiazem HCl 10 mg 07/27/17 11:55 07/29/17 06:53 Cardizem Injection - IVPUSH 10 mg Q4H PRN Administration TACHYCARDIA Docusate Sodium 100 mg 07/25/17 22:00 07/29/17 09:39 Colace - PO 100 mg BID VERO Administration Haloperidol 1 mg 07/26/17 16:16 07/26/17 19:43 Haldol Injection (Fast Acting) - IM 1 mg Q4H PRN Administration AGITATION Heparin Sodium (Porcine) 5,000 unit 07/28/17 22:00 07/29/17 09:42 Heparin - SQ 5,000 unit BID VERO Administration Hydralazine HCl 10 mg 07/25/17 14:04 Apresoline Injection - IM Q8H PRN HYPERTENSION Sodium Chloride 1,000 mls @ 75 mls/hr 07/28/17 13:15 07/28/17 14:30 Normal Saline - IV 75 mls/hr ASDIR VERO Administration Ampicillin Sodium/Sulbactam 100 mls @ 200 mls/hr 07/28/17 17:15 07/29/17 09: 40 Sodium 1.5 gm/ Sodium Chloride IVPB 200 mls/hr Q8H-IV VERO Administration Insulin Detemir 14 units 07/25/17 22:00 07/28/17 23:00 Levemir Vial SQ Not Given HS VERO Metoprolol Tartrate 50 mg 07/26/17 10:00 07/29/17 09:39 Lopressor - PO 50 mg BID VERO Administration Ondansetron HCl 4 mg 07/25/17 13:54 07/25/17 18:40 Zofran Injection IVPUSH 4 mg Q6H PRN Administration NAUSEA Polyethylene Glycol 17 gm 07/26/17 10:00 07/29/17 09:44 Miralax (For Daily Use) - PO 17 gm DAILY VERO Administration Potassium Chloride 20 meq 07/26/17 10:00 07/29/17 09:39 K-Dur - PO 20 meq DAILY VERO Administration Microbiology 07/27/17 21:00 Urine Culture - Preliminary Urine - Urine - Catheterized Lactose Fermenting Neg Bacilli Group D Strep Or Entero Coccus 07/27/17 19:30 Blood Culture - Preliminary Blood - Peripheral Venous NO GROWTH OBTAINED AFTER 24 HOURS, INCUBATION TO CONTINUE FOR 4 DAYS. 07/27/17 19:30 Blood Culture - Preliminary Blood - Peripheral Venous NO GROWTH OBTAINED AFTER 24 HOURS, INCUBATION TO CONTINUE FOR 4 DAYS. 07/25/17 11:20 Urine Culture - Final Urine - Urine Clean Catch Escherichia Coli Enterococcus Faecalis Assessment: 86 year old female with PMH CVA, HTN, DM, breast ca and dyslipidemia admitted with acute confusion and slurred speech Plan: 1. Acute hypertensive encephalopathy - No CVA per neuro - ASA 325mg daily - Lipitor 10mg - ECHO done, called cardiology to scan report in EMR - Carotid doppler no significant stenosis - BP goal 130-140/80-90 - 2. A fib - [id number] warrants AC initiation - Neuro input prior to starting - Continue metoprolol 50mg BID - Cardizem prn 3. HOWARD - Improved with gentle hydration - Change fluids NS w/20meq 75cc/hr 4. Polycythemia - Likely due to dehydration, improving - Continue fluids 5. Sepsis due to UTI - Afebrile - Mild elevation wbc - Continue unysan per ID - Pre rubalcava micro results LFNB, previous e coli sensitive to unysan - ID seeing 6. Hypokalemia - Replete additional 40meq PO - Change fluids w. KCL 7. Breast CA - Continue arimidex 8. DVT ppx - Heparin sq Visit type - Emergency Visit Emergency Visit: Yes ED Registration Date: 07/25/17 Care time: The patient presented to the Emergency Department on the above date and was hospitalized for further evaluation of their emergent condition. - New Patient This patient is new to me today: Yes Date on this admission: 07/29/17 - Critical Care Critical Care patient: No
--- NOTE | 2017-07-29 11:55 | PN ---
Progress Note (short form) - Note Progress Note: s: no cp sob palps dizzy o: Vital Signs Period Temp Pulse Resp BP Sys/Wolf Pulse Ox Last 24 Hr 98.0 F-98.5 F 66-84 20-20 114-150/60-91 96 nad no jvd irreg tachy s1 s2 no mrg cta bl nl eff no le e/c/c abd nt nd pos bs no jaundice diaphoresis awake alert Current Medications Generic Name Dose Route Start Last Admin Trade Name Freq PRN Reason Stop Dose Admin Acetaminophen 650 mg 07/25/17 13:54 07/28/17 03:00 Tylenol - PO 650 mg Q4H PRN Administration FEVER OR PAIN Anastrozole 1 mg 07/26/17 10:00 07/28/17 11:11 Arimidex - PO 1 mg DAILY VERO Administration Aspirin 325 mg 07/26/17 10:00 07/29/17 09:39 Ecotrin - PO 325 mg DAILY VERO Administration Atorvastatin Calcium 10 mg 07/25/17 22:00 07/28/17 22:41 Lipitor - PO 10 mg HS VERO Administration Diltiazem HCl 10 mg 07/27/17 11:55 07/29/17 06:53 Cardizem Injection - IVPUSH 10 mg Q4H PRN Administration TACHYCARDIA Docusate Sodium 100 mg 07/25/17 22:00 07/29/17 09:39 Colace - PO 100 mg BID VERO Administration Haloperidol 1 mg 07/26/17 16:16 07/26/17 19:43 Haldol Injection (Fast Acting) - IM 1 mg Q4H PRN Administration AGITATION Heparin Sodium (Porcine) 5,000 unit 07/28/17 22:00 07/29/17 09:42 Heparin - SQ 5,000 unit BID VERO Administration Hydralazine HCl 10 mg 07/25/17 14:04 Apresoline Injection - IM Q8H PRN HYPERTENSION Ampicillin Sodium/Sulbactam 100 mls @ 200 mls/hr 07/28/17 17:15 07/29/17 09: 40 Sodium 1.5 gm/ Sodium Chloride IVPB 200 mls/hr Q8H-IV VERO Administration Potassium Chloride/Sodium Chloride 20 meq in 1,000 mls @ 75 mls/hr 07/29/17 11 :30 Ns+20 Meq Kcl - IV ASDIR VERO Insulin Detemir 14 units 07/25/17 22:00 07/28/17 23:00 Levemir Vial SQ Not Given HS VERO Metoprolol Tartrate 50 mg 07/26/17 10:00 07/29/17 09:39 Lopressor - PO 50 mg BID VERO Administration Ondansetron HCl 4 mg 07/25/17 13:54 07/25/17 18:40 Zofran Injection IVPUSH 4 mg Q6H PRN Administration NAUSEA Polyethylene Glycol 17 gm 07/26/17 10:00 07/29/17 09:44 Miralax (For Daily Use) - PO 17 gm DAILY VERO Administration Potassium Chloride 20 meq 07/26/17 10:00 07/29/17 09:39 K-Dur - PO 20 meq DAILY VERO Administration CBC, BMP 07/28/17 06:00 07/29/17 09:25 tele: sr cxr: clear lungs ecg 07/25/17: sr, nl intervals, lvh, no ischemic changes carotids 07/2017: no sig stenosis a/p: 86 f hx htn, hld, dm, here with acute cva. htn: -cont bb hld: -cont statin new afib with rvr: -converted to sr on own 07/27 -cont bb -chadsvasc warrants ac, start if/when possible per neuro in setting of acute cva -check echo cva: -neuro following
[2017-07-29] MEDS: SODIUM CHLORIDE 0.9%/KCL 20 MEQ/1,000 ML INFUS.BAG IV SCH (12:00)
--- NOTE | 2017-07-29 13:53 | PN ---
Progress Note (short form) - Note Progress Note: Period Temp Pulse Resp BP Sys/Wolf Pulse Ox Last 24 Hr 98.1 F-101.1 F 67-95 18-22 102-140/60-78 94-95 cor-rrr lulngs clear abd soft,nt ext no edema CBC, BMP 07/28/17 06:00 07/29/17 09:25 Microbiology 07/27/17 21:00 Urine - Urine - Catheterized Urine Culture - Preliminary Lactose Fermenting Neg Bacilli Group D Strep Or Entero Coccus 07/27/17 19:30 Blood - Peripheral Venous Blood Culture - Preliminary NO GROWTH OBTAINED AFTER 24 HOURS, INCUBATION TO CONTINUE FOR 4 DAYS. 07/27/17 19:30 Blood - Peripheral Venous Blood Culture - Preliminary NO GROWTH OBTAINED AFTER 24 HOURS, INCUBATION TO CONTINUE FOR 4 DAYS. 07/25/17 11:20 Urine - Urine Clean Catch Urine Culture - Final Escherichia Coli Enterococcus Faecalis a/p mental status improved fevers resolved- UTI- continue unasyn f/u cultures in am management of CVA/Dementia/HTN per PMD increased creatinine c/w dehydration- continue ivf Problem List - Problems (1) CVA (cerebral vascular accident) Code(s): I63.9 - CEREBRAL INFARCTION, UNSPECIFIED Qualifiers: CVA mechanism: unspecified Qualified Code(s): I63.9 - Cerebral infarction, unspecified (2) HTN (hypertension) Code(s): I10 - ESSENTIAL (PRIMARY) HYPERTENSION (3) Asymptomatic bacteriuria Code(s): R82.71 - BACTERIURIA (4) Dementia Code(s): F03.90 - UNSPECIFIED DEMENTIA WITHOUT BEHAVIORAL DISTURBANCE
[2017-07-29] MEDS ORDERED: PT OWN MED DRAWER 7, Y5N ONE (15:21)
[2017-07-29] MEDS: ATORVASTATIN CA 10 MG TABLET (FP) PO SCH (21:02)
[2017-07-29] MEDS: INSULIN DETEMIR 100 UNITS/ML MDV SQ SCH (21:02)
[2017-07-30] MEDS ORDERED: PT OWN MED DRAWER 7, Y5N ONE (01:18)
[2017-07-30] MEDS: AMPICILLIN NA/SULBACTAM NA 1.5 GM in SODIUM CHLORIDE 100 ML IVPB SCH ×3 (01:19→16:59)
[2017-07-30] MEDS: ACETAMINOPHEN 325 MG TABLET (FP) PO PRN ×2 (01:47→17:37)
[2017-07-30 07:45] LABS: MCH 28.2 pg (25.7-33.7); MCHC 34.5 g/dl (32.0-36.0); MEAN CELL VOLUME 81.7 fl (80-96); PLATELET COUNT 179 K/MM3 (134-434); RDW 14.2 % (11.6-15.6); WHITE BLOOD COUNT 11.5 K/mm3 (4.0-10.0)
[2017-07-30 08:09] LABS: ANION GAP 15 (8-16); CALCIUM 8.7 mg/dL (8.5-10.1); CO2 22 mmol/L (21-32); CREATININE 0.8 mg/dL (0.55-1.02); GLUCOSE,RANDOM 148 mg/dL (74-106)
[2017-07-30] MEDS: dilTIAZem HCL 50 MG/10 ML - 10 ML VIAL IVPUSH PRN (08:49)
[2017-07-30] MEDS: METOPROLOL TARTRATE 50 MG TABLET (FP) PO SCH (08:49)
--- NOTE | 2017-07-30 09:08 | PN ---
Progress Note, Physician - Current Medication List Current Medications: Active Medications Acetaminophen (Tylenol -) 650 mg PO Q4H PRN PRN Reason: FEVER OR PAIN Last Admin: 07/30/17 01:47 Dose: 650 mg Anastrozole (Arimidex -) 1 mg PO DAILY [facility] Last Admin: 07/29/17 10:00 Dose: 1 mg Aspirin (Ecotrin -) 325 mg PO DAILY [facility] Last Admin: 07/29/17 09:39 Dose: 325 mg Atorvastatin Calcium (Lipitor -) 10 mg PO HS [facility] Last Admin: 07/29/17 21:02 Dose: 10 mg Diltiazem HCl (Cardizem Injection -) 10 mg IVPUSH Q4H PRN PRN Reason: TACHYCARDIA Last Admin: 07/30/17 08:49 Dose: 10 mg Docusate Sodium (Colace -) 100 mg PO BID [facility] Last Admin: 07/29/17 21:02 Dose: 100 mg Haloperidol (Haldol Injection (Fast Acting) -) 1 mg IM Q4H PRN PRN Reason: AGITATION Last Admin: 07/26/17 19:43 Dose: 1 mg Heparin Sodium (Porcine) (Heparin -) 5,000 unit SQ BID [facility] Last Admin: 07/29/17 21:01 Dose: 5,000 unit Hydralazine HCl (Apresoline Injection -) 10 mg IM Q8H PRN PRN Reason: HYPERTENSION Ampicillin Sodium/Sulbactam (Sodium 1.5 gm/ Sodium Chloride) 100 mls @ 200 mls/ hr IVPB Q8H-IV VERO Last Admin: 07/30/17 01:19 Dose: 200 mls/hr Potassium Chloride/Sodium Chloride (Ns+20 Meq Kcl -) 20 meq in 1,000 mls @ 75 mls/hr IV ASDIR [facility] Last Admin: 07/29/17 12:00 Dose: 75 mls/hr Insulin Detemir (Levemir Vial) 14 units SQ HS [facility] Last Admin: 07/29/17 21:02 Dose: 14 units Metoprolol Tartrate (Lopressor -) 50 mg PO BID [facility] Last Admin: 07/30/17 08:49 Dose: 50 mg Ondansetron HCl (Zofran Injection) 4 mg IVPUSH Q6H PRN PRN Reason: NAUSEA Last Admin: 07/25/17 18:40 Dose: 4 mg Polyethylene Glycol (Miralax (For Daily Use) -) 17 gm PO DAILY [facility] Last Admin: 07/29/17 09:44 Dose: 17 gm Potassium Chloride (K-Dur -) 20 meq PO DAILY [facility] Last Admin: 07/29/17 09:39 Dose: 20 meq - Objective Vital Signs: Vital Signs Temperature 97.6 F 07/30/17 06:00 Pulse Rate 88 07/30/17 06:00 Respiratory Rate 18 07/30/17 06:00 Blood Pressure 168/78 07/30/17 06:00 O2 Sat by Pulse Oximetry (%) 97 07/29/17 21:00 Labs: CBC, BMP 07/30/17 06:00 07/30/17 06:00 INR, PTT INR 1.02 (0.82-1.09) 07/25/17 11:02 Problem List - Problems (1) Asymptomatic bacteriuria Assessment/Plan: patient is on ampicillin/sulbactam Code(s): R82.71 - BACTERIURIA (2) Atrial fibrillation with RVR Code(s): I48.91 - UNSPECIFIED ATRIAL FIBRILLATION (3) CVA (cerebral vascular accident) Code(s): I63.9 - CEREBRAL INFARCTION, UNSPECIFIED Qualifiers: CVA mechanism: unspecified Qualified Code(s): I63.9 - Cerebral infarction, unspecified (4) Dementia Code(s): F03.90 - UNSPECIFIED DEMENTIA WITHOUT BEHAVIORAL DISTURBANCE (5) Diabetes Code(s): E11.9 - TYPE 2 DIABETES MELLITUS WITHOUT COMPLICATIONS (6) HLD (hyperlipidemia) Code(s): E78.5 - HYPERLIPIDEMIA, UNSPECIFIED (7) HTN (hypertension) Code(s): I10 - ESSENTIAL (PRIMARY) HYPERTENSION Assessment/Plan 1. Acute hypertensive encephalopathy mantain - [id number] - c/w ASA 325mg daily - Lipitor 10mg 2. A fib - [id number] warrants AC initiation - Neuro input prior to starting - increase metoprolol to 75mg twice a day from 50mg BID - Cardizem prn if BP is > 100 SBP 3. HOWARD - resolving with hydration - Change fluids NS 75cc/hr 4. Polycythemia - Likely due to dehydration, improving - Continue fluids 5. Sepsis due to UTI - followed by ID - patient is Afebrile - Continue ampicillin/sulbactam - Pre rubalcava micro results LFNB, previous e coli sensitive to unysan 6. Hypokalemia - Replete additional 40meq PO - Change fluids w. KCL 7. Breast CA - Continue arimidex 8. DVT ppx - Heparin sq
[2017-07-30] MEDS ORDERED: METOPROLOL TARTRATE 5 MG/5 ML VIAL IVPUSH ONE (09:24)
[2017-07-30] MEDS: POTASSIUM CHLORIDE TABS 20 MEQ TABLET.ER (FP) PO SCH (09:55)
[2017-07-30] MEDS: HEPARIN NA (PORCINE) 5,000 UNITS/ML 1ML VIAL SQ SCH ×2 (09:55→21:14)
[2017-07-30] MEDS: DOCUSATE SODIUM 100 MG CAPSULE (FP) PO SCH ×2 (09:55→21:14)
[2017-07-30] MEDS: ANASTROZOLE 1 MG TABLET PO SCH (09:56)
[2017-07-30] MEDS: ASPIRIN 325 MG ENTERIC COATED TABLET (FP) PO SCH (09:56)
[2017-07-30] MEDS: POLYETHYLENE GLYCOL 3350 119 GM BTL PO SCH (09:57)
[2017-07-30] MEDS: HALOPERIDOL LACTATE 5 MG/ML IM PRN (11:19)
--- NOTE | 2017-07-30 15:28 | EKG ---
Test Reason : Blood Pressure : / mmHG Vent. Rate : 151 BPM Atrial Rate : 141 BPM P-R Int : 000 ms QRS Dur : 104 ms QT Int : 308 ms P-R-T Axes : 000 -59 114 degrees QTc Int : 488 ms ATRIAL FIBRILLATION WITH RAPID VENTRICULAR RESPONSE LEFT AXIS DEVIATION INTRAVENTRICULAR DEFECT OF THE LBBB TYPE MARKED ST ABNORMALITY, POSSIBLE LATERAL SUBENDOCARDIAL INJURY ABNORMAL ECG WHEN COMPARED WITH ECG OF 27-JUL-2017 10:40, ABSENSE OF VENTRICULAR ECTOPIC BEATS REPEAT EKG IF CLINICALLY INDICATED ST LESS DEPRESSED IN ANTERIOR LEADS Confirmed by DENA BUTTS MD ([id number]) on 07/30/2017 3:28:29 PM Referred By: Shawna PICKENS Confirmed By:DENA BUTTS MD
[2017-07-30] MEDS: SODIUM CHLORIDE 0.9%/KCL 20 MEQ/1,000 ML INFUS.BAG IV SCH (16:59)
[2017-07-30] MEDS: ATORVASTATIN CA 10 MG TABLET (FP) PO SCH (21:14)
[2017-07-30] MEDS: INSULIN DETEMIR 100 UNITS/ML MDV SQ SCH (21:14)
[2017-07-30] MEDS ORDERED: METOPROLOL TARTRATE 25 MG TABLET (FP) PO SCH (22:00)
[2017-07-31] MEDS: AMPICILLIN NA/SULBACTAM NA 1.5 GM in SODIUM CHLORIDE 100 ML IVPB SCH ×3 (01:30→17:45)
--- NOTE | 2017-07-31 02:51 | PN ---
Progress Note (short form) - Note Progress Note: progress note for 07/30/17 s: no cp sob palps dizzy o: Vital Signs Period Temp Pulse Resp BP Sys/Wolf Pulse Ox Last 24 Hr 97.3 F-98.7 F 85-170 18-20 110-168/65-91 94-97 nad no jvd irreg tachy s1 s2 no mrg cta bl nl eff no le e/c/c abd nt nd pos bs no jaundice diaphoresis awake alert Current Medications Generic Name Dose Route Start Last Admin Trade Name Freq PRN Reason Stop Dose Admin Acetaminophen 650 mg 07/25/17 13:54 07/30/17 17:37 Tylenol - PO 650 mg Q4H PRN Administration FEVER OR PAIN Anastrozole 1 mg 07/26/17 10:00 07/30/17 09:56 Arimidex - PO 1 mg DAILY VERO Administration Aspirin 325 mg 07/26/17 10:00 07/30/17 09:56 Ecotrin - PO 325 mg DAILY VERO Administration Atorvastatin Calcium 10 mg 07/25/17 22:00 07/30/17 21:14 Lipitor - PO 10 mg HS VERO Administration Diltiazem HCl 10 mg 07/27/17 11:55 07/30/17 08:49 Cardizem Injection - IVPUSH 10 mg Q4H PRN Administration TACHYCARDIA Diltiazem HCl 180 mg 07/30/17 13:00 07/30/17 17:00 Cardizem Cd - PO 180 mg DAILY VERO Administration Docusate Sodium 100 mg 07/25/17 22:00 07/30/17 21:14 Colace - PO 100 mg BID VERO Administration Haloperidol 1 mg 07/26/17 16:16 07/26/17 19:43 Haldol Injection (Fast Acting) - IM 1 mg Q4H PRN Administration AGITATION Heparin Sodium (Porcine) 5,000 unit 07/28/17 22:00 07/30/17 21:14 Heparin - SQ 5,000 unit BID VERO Administration Hydralazine HCl 10 mg 07/25/17 14:04 Apresoline Injection - IM Q8H PRN HYPERTENSION Ampicillin Sodium/Sulbactam 100 mls @ 200 mls/hr 07/28/17 17:15 07/31/17 01: 30 Sodium 1.5 gm/ Sodium Chloride IVPB 200 mls/hr Q8H-IV VERO Administration Potassium Chloride/Sodium Chloride 20 meq in 1,000 mls @ 75 mls/hr 07/29/17 11 :30 07/30/17 16:59 Ns+20 Meq Kcl - IV 75 mls/hr ASDIR [facility]ERO Administration Insulin Detemir 14 units 07/25/17 22:00 07/30/17 21:14 Levemir Vial SQ 14 units HS VERO Administration Ondansetron HCl 4 mg 07/25/17 13:54 07/25/17 18:40 Zofran Injection IVPUSH 4 mg Q6H PRN Administration NAUSEA Polyethylene Glycol 17 gm 07/26/17 10:00 07/30/17 09:57 Miralax (For Daily Use) - PO 17 gm DAILY [facility]ERO Administration Potassium Chloride 20 meq 07/26/17 10:00 07/30/17 09:55 K-Dur - PO 20 meq DAILY VERO Administration Laboratory Last Values WBC 11.5 K/mm3 (4.0-10.0) H 07/30/17 06:00 RBC 6.02 M/mm3 (3.60-5.2) H 07/30/17 06:00 Hgb 16.9 GM/dL (10.7-15.3) H 07/30/17 06:00 Hct 49.2 % (32.4-45.2) H 07/30/17 06:00 MCV 81.7 fl (80-96) 07/30/17 06:00 MCH 28.2 pg (25.7-33.7) 07/30/17 06:00 MCHC 34.5 g/dl (32.0-36.0) 07/30/17 06:00 RDW 14.2 % (11.6-15.6) 07/30/17 06:00 Plt Count 179 K/MM3 (134-434) 07/30/17 06:00 MPV 9.0 fl (7.5-11.1) 07/30/17 06:00 Neutrophils % 64.9 % (42.8-82.8) D 07/28/17 06:00 Lymphocytes % 22.9 % (8-40) D 07/28/17 06:00 Monocytes % 11.6 % (3.8-10.2) H D 07/28/17 06:00 Eosinophils % 0.3 % (0-4.5) D 07/28/17 06:00 Basophils % 0.3 % (0-2.0) 07/28/17 06:00 PT with INR 11.50 SEC (9.98-11.88) 07/25/17 11:02 INR 1.02 (0.82-1.09) 07/25/17 11:02 Sodium 137 mmol/L (136-145) 07/30/17 06:00 Potassium 3.7 mmol/L (3.5-5.1) 07/30/17 06:00 Chloride 100 mmol/L (98-107) 07/30/17 06:00 Carbon Dioxide 22 mmol/L (21-32) 07/30/17 06:00 Anion Gap 15 (8-16) 07/30/17 06:00 BUN 28 mg/dL (7-18) H D 07/30/17 06:00 Creatinine 0.8 mg/dL (0.55-1.02) D 07/30/17 06:00 Creat Clearance w eGFR > 60 (>60) 07/25/17 11:02 POC Glucometer 170 UNITS (80-120) 07/30/17 21:13 Random Glucose 148 mg/dL (74-106) H D 07/30/17 06:00 Hemoglobin A1c % 6.4 % (4.8-6.0) H 07/26/17 05:10 Serum Osmolality 280 mosm/kg (278-305) 07/27/17 05:20 Calcium 8.7 mg/dL (8.5-10.1) 07/30/17 06:00 Phosphorus 4.6 mg/dL (2.5-4.9) D 07/28/17 06:00 Magnesium 2.8 mg/dL (1.8-2.4) H D 07/28/17 06:00 Total Bilirubin 1.0 mg/dL (0.2-1.0) D 07/25/17 11:02 AST 32 U/L (15-37) 07/25/17 11:02 ALT 22 U/L (12-78) 07/25/17 11:02 Alkaline Phosphatase 116 U/L (45-117) D 07/25/17 11:02 Creatine Kinase 99 IU/L (26-192) 07/26/17 05:10 Troponin I 0.07 ng/ml (0.00-0.05) H 07/26/17 05:10 Total Protein 7.6 g/dl (6.4-8.2) D 07/25/17 11:02 Albumin 5.1 g/dl (3.4-5.0) H D 07/25/17 11:02 Triglycerides 162 mg/dL (35-160) H 07/25/17 11:02 Cholesterol 165 mg/dL (50-200) 07/25/17 11:02 Total LDL Cholesterol 76 mg/dL (5-100) 07/25/17 11:02 HDL Cholesterol 69 mg/dL (40-60) H 07/25/17 11:02 Urine Color Yellow 07/27/17 18:00 Urine Appearance Turbid 07/27/17 18:00 Urine pH 5.0 (5.0-8.0) D 07/27/17 18:00 Ur Specific [place] 1.026 (1.001-1.035) 07/27/17 18:00 Urine Protein 2+ (NEGATIVE) H 07/27/17 18:00 Urine Glucose (UA) Negative (NEGATIVE) 07/27/17 18:00 Urine Ketones Negative (NEGATIVE) 07/27/17 18:00 Urine Blood 1+ (NEGATIVE) H 07/27/17 18:00 Urine Nitrite Negative (NEGATIVE) 07/27/17 18:00 Urine Bilirubin Negative (NEGATIVE) 07/27/17 18:00 Urine Urobilinogen Negative mg/dL (0.2-1.0) 07/27/17 18:00 Ur Leukocyte Esterase 1+ (NEGATIVE) H 07/27/17 18:00 Urine RBC 16 /hpf (0-3) 07/27/17 18:00 Urine WBC 1013 /hpf (3-5) 07/27/17 18:00 Urine Mucus Moderate 07/27/17 18:00 Urine Osmolality 479 mosm/kg (300-900) 07/27/17 17:00 Ur Random Sodium 86 MMOL/L 07/30/17 10:18 Urine Creatinine 46.8 mg/dL (20-320) 07/30/17 10:18 Blood Type A NEGATIVE 07/25/17 11:02 Antibody Screen Positive H 07/25/17 11:02 Antibody Identification No Result Required. 07/25/17 11:02 Antigen Identification Y 07/25/17 11:02 tele: sr now, earlier had afib with rvr cxr: clear lungs ecg 07/25/17: sr, nl intervals, lvh, no ischemic changes carotids 07/2017: no sig stenosis echo 07/2017: tds, mild dec lvef, nl rv, mod-sev mr a/p: 86 f hx htn, hld, dm, here with acute cva. htn: -cont bb hld: -cont statin new afib with rvr: -having pafib here with rvr at times when in afib -will change bb to dilt and monitor HR control -cont tele -chadsvasc warrants ac, start if/when possible per neuro in setting of acute cva -check echo cva: -neuro following
[2017-07-31 08:05] LABS: MCH 27.6 pg (25.7-33.7); MCHC 33.3 g/dl (32.0-36.0); MEAN CELL VOLUME 82.9 fl (80-96); MEAN PLT VOLUME 8.8 fl (7.5-11.1); NEUTROPHILS 61.8 % (42.8-82.8); PLATELET COUNT 152 K/MM3 (134-434); RDW 13.9 % (11.6-15.6); WHITE BLOOD COUNT 9.8 K/mm3 (4.0-10.0)
[2017-07-31] MEDS: HEPARIN NA (PORCINE) 5,000 UNITS/ML 1ML VIAL SQ SCH ×2 (09:03→21:13)
[2017-07-31] MEDS: ANASTROZOLE 1 MG TABLET PO SCH (09:03)
[2017-07-31] MEDS: DOCUSATE SODIUM 100 MG CAPSULE (FP) PO SCH ×2 (09:03→21:13)
[2017-07-31] MEDS: POTASSIUM CHLORIDE TABS 20 MEQ TABLET.ER (FP) PO SCH (09:04)
[2017-07-31] MEDS: POLYETHYLENE GLYCOL 3350 119 GM BTL PO SCH (09:04)
[2017-07-31] MEDS: ASPIRIN 325 MG ENTERIC COATED TABLET (FP) PO SCH (09:04)
[2017-07-31 09:24] LABS: ALBUMIN 2.9 g/dl (3.4-5.0); ALK PHOS 78 U/L (45-117); ANION GAP 10 (8-16); CALCIUM 8.1 mg/dL (8.5-10.1); CO2 27 mmol/L (21-32); CREATININE 0.8 mg/dL (0.55-1.02); GLUCOSE,RANDOM 127 mg/dL (74-106); MAGNESIUM 2.1 mg/dL (1.8-2.4); SGOT/AST 28 U/L (15-37); SGPT/ALT 17 U/L (12-78); TOT PROT 5.3 g/dl (6.4-8.2)
--- NOTE | 2017-07-31 12:03 | PN ---
Progress Note (short form) - Note Progress Note: s: no cp sob palps dizzy o: Vital Signs Period Temp Pulse Resp BP Sys/Wolf Pulse Ox Last 24 Hr 97.0 F-98.7 F 80-92 18-20 135-170/81-96 94-96 nad no jvd rrr s1 s2 no mrg cta bl nl eff no le e/c/c abd nt nd pos bs no jaundice diaphoresis awake alert Current Medications Generic Name Dose Route Start Last Admin Trade Name Freq PRN Reason Stop Dose Admin Acetaminophen 650 mg 07/25/17 13:54 07/30/17 17:37 Tylenol - PO 650 mg Q4H PRN Administration FEVER OR PAIN Anastrozole 1 mg 07/26/17 10:00 07/31/17 09:03 Arimidex - PO 1 mg DAILY VERO Administration Aspirin 325 mg 07/26/17 10:00 07/31/17 09:04 Ecotrin - PO 325 mg DAILY VERO Administration Atorvastatin Calcium 10 mg 07/25/17 22:00 07/30/17 21:14 Lipitor - PO 10 mg HS VERO Administration Diltiazem HCl 10 mg 07/27/17 11:55 07/30/17 08:49 Cardizem Injection - IVPUSH 10 mg Q4H PRN Administration TACHYCARDIA Diltiazem HCl 180 mg 07/30/17 13:00 07/31/17 09:03 Cardizem Cd - PO 180 mg DAILY VERO Administration Docusate Sodium 100 mg 07/25/17 22:00 07/31/17 09:03 Colace - PO 100 mg BID VERO Administration Haloperidol 1 mg 07/26/17 16:16 07/26/17 19:43 Haldol Injection (Fast Acting) - IM 1 mg Q4H PRN Administration AGITATION Heparin Sodium (Porcine) 5,000 unit 07/28/17 22:00 07/31/17 09:03 Heparin - SQ 5,000 unit BID VERO Administration Hydralazine HCl 10 mg 07/25/17 14:04 Apresoline Injection - IM Q8H PRN HYPERTENSION Ampicillin Sodium/Sulbactam 100 mls @ 200 mls/hr 07/28/17 17:15 07/31/17 09: 02 Sodium 1.5 gm/ Sodium Chloride IVPB 200 mls/hr Q8H-IV [facility]ERO Administration Potassium Chloride/Sodium Chloride 20 meq in 1,000 mls @ 75 mls/hr 07/29/17 11 :30 07/30/17 16:59 Ns+20 Meq Kcl - IV 75 mls/hr ASDIR VERO Administration Insulin Detemir 14 units 07/25/17 22:00 07/30/17 21:14 Levemir Vial SQ 14 units HS VERO Administration Ondansetron HCl 4 mg 07/25/17 13:54 07/25/17 18:40 Zofran Injection IVPUSH 4 mg Q6H PRN Administration NAUSEA Polyethylene Glycol 17 gm 07/26/17 10:00 07/31/17 09:04 Miralax (For Daily Use) - PO 17 gm DAILY VERO Administration Potassium Chloride 20 meq 07/26/17 10:00 07/31/17 09:04 K-Dur - PO 20 meq DAILY VERO Administration Laboratory Last Values WBC 9.8 K/mm3 (4.0-10.0) 07/31/17 06:15 RBC 5.08 M/mm3 (3.60-5.2) 07/31/17 06:15 Hgb 14.0 GM/dL (10.7-15.3) D 07/31/17 06:15 Hct 42.1 % (32.4-45.2) 07/31/17 06:15 MCV 82.9 fl (80-96) 07/31/17 06:15 MCH 27.6 pg (25.7-33.7) 07/31/17 06:15 MCHC 33.3 g/dl (32.0-36.0) 07/31/17 06:15 RDW 13.9 % (11.6-15.6) 07/31/17 06:15 Plt Count 152 K/MM3 (134-434) 07/31/17 06:15 MPV 8.8 fl (7.5-11.1) 07/31/17 06:15 Neutrophils % 61.8 % (42.8-82.8) 07/31/17 06:15 Lymphocytes % 24.4 % (8-40) 07/31/17 06:15 Monocytes % 7.8 % (3.8-10.2) 07/31/17 06:15 Eosinophils % 4.0 % (0-4.5) D 07/31/17 06:15 Basophils % 2.0 % (0-2.0) D 07/31/17 06:15 PT with INR 11.50 SEC (9.98-11.88) 07/25/17 11:02 INR 1.02 (0.82-1.09) 07/25/17 11:02 Sodium 141 mmol/L (136-145) 07/31/17 06:15 Potassium 3.2 mmol/L (3.5-5.1) L 07/31/17 06:15 Chloride 104 mmol/L (98-107) 07/31/17 06:15 Carbon Dioxide 27 mmol/L (21-32) D 07/31/17 06:15 Anion Gap 10 (8-16) 07/31/17 06:15 BUN 27 mg/dL (7-18) H 07/31/17 06:15 Creatinine 0.8 mg/dL (0.55-1.02) 07/31/17 06:15 Creat Clearance w eGFR > 60 (>60) 07/31/17 06:15 POC Glucometer 128 UNITS (80-120) 07/31/17 06:16 Random Glucose 127 mg/dL (74-106) H 07/31/17 06:15 Hemoglobin A1c % 6.4 % (4.8-6.0) H 07/26/17 05:10 Serum Osmolality 280 mosm/kg (278-305) 07/27/17 05:20 Calcium 8.1 mg/dL (8.5-10.1) L 07/31/17 06:15 Phosphorus 4.6 mg/dL (2.5-4.9) D 07/28/17 06:00 Magnesium 2.1 mg/dL (1.8-2.4) D 07/31/17 06:15 Total Bilirubin 1.0 mg/dL (0.2-1.0) 07/31/17 06:15 AST 28 U/L (15-37) 07/31/17 06:15 ALT 17 U/L (12-78) D 07/31/17 06:15 Alkaline Phosphatase 78 U/L (45-117) D 07/31/17 06:15 Creatine Kinase 99 IU/L (26-192) 07/26/17 05:10 Troponin I 0.07 ng/ml (0.00-0.05) H 07/26/17 05:10 Total Protein 5.3 g/dl (6.4-8.2) L D 07/31/17 06:15 Albumin 2.9 g/dl (3.4-5.0) L D 07/31/17 06:15 Triglycerides 162 mg/dL (35-160) H 07/25/17 11:02 Cholesterol 165 mg/dL (50-200) 07/25/17 11:02 Total LDL Cholesterol 76 mg/dL (5-100) 07/25/17 11:02 HDL Cholesterol 69 mg/dL (40-60) H 07/25/17 11:02 Urine Color Yellow 07/27/17 18:00 Urine Appearance Turbid 07/27/17 18:00 Urine pH 5.0 (5.0-8.0) D 07/27/17 18:00 Ur Specific [place] 1.026 (1.001-1.035) 07/27/17 18:00 Urine Protein 2+ (NEGATIVE) H 07/27/17 18:00 Urine Glucose (UA) Negative (NEGATIVE) 07/27/17 18:00 Urine Ketones Negative (NEGATIVE) 07/27/17 18:00 Urine Blood 1+ (NEGATIVE) H 07/27/17 18:00 Urine Nitrite Negative (NEGATIVE) 07/27/17 18:00 Urine Bilirubin Negative (NEGATIVE) 07/27/17 18:00 Urine Urobilinogen Negative mg/dL (0.2-1.0) 07/27/17 18:00 Ur Leukocyte Esterase 1+ (NEGATIVE) H 07/27/17 18:00 Urine RBC 16 /hpf (0-3) 07/27/17 18:00 Urine WBC 1013 /hpf (3-5) 07/27/17 18:00 Urine Mucus Moderate 07/27/17 18:00 Urine Osmolality 479 mosm/kg (300-900) 07/27/17 17:00 Ur Random Sodium 86 MMOL/L 07/30/17 10:18 Urine Creatinine 46.8 mg/dL (20-320) 07/30/17 10:18 Blood Type A NEGATIVE 07/25/17 11:02 Antibody Screen Positive H 07/25/17 11:02 Antibody Identification No Result Required. 07/25/17 11:02 Antigen Identification Y 07/25/17 11:02 tele: sr cxr: clear lungs ecg 07/25/17: sr, nl intervals, lvh, no ischemic changes carotids 07/2017: no sig stenosis echo 07/2017: tds, mild dec lvef, nl rv, mod-sev mr a/p: 86 f hx htn, hld, dm, here with acute cva. htn: -cont bb hld: -cont statin new afib with rvr: -having pafib here with rvr at times when in afib -rate seems to respond better to dilt than bb so have changed to po dilt -cont tele -chadsvasc warrants ac, start if/when possible per neuro in setting of acute cva cva: -neuro following mr: -echo here TDS, reports mild dec lvef, nl rv, mod-sev mr -no signs chf -repeat echo as outpt to monitor
--- NOTE | 2017-07-31 12:45 | PN ---
Progress Note, Physician Chief Complaint: no complaints - Current Medication List Current Medications: Active Medications Acetaminophen (Tylenol -) 650 mg PO Q4H PRN PRN Reason: FEVER OR PAIN Last Admin: 07/30/17 17:37 Dose: 650 mg Anastrozole (Arimidex -) 1 mg PO DAILY [facility] Last Admin: 07/31/17 09:03 Dose: 1 mg Aspirin (Ecotrin -) 325 mg PO DAILY [facility] Last Admin: 07/31/17 09:04 Dose: 325 mg Atorvastatin Calcium (Lipitor -) 10 mg PO HS [facility] Last Admin: 07/30/17 21:14 Dose: 10 mg Diltiazem HCl (Cardizem Injection -) 10 mg IVPUSH Q4H PRN PRN Reason: TACHYCARDIA Last Admin: 07/30/17 08:49 Dose: 10 mg Diltiazem HCl (Cardizem Cd -) 180 mg PO DAILY [facility] Last Admin: 07/31/17 09:03 Dose: 180 mg Docusate Sodium (Colace -) 100 mg PO BID [facility] Last Admin: 07/31/17 09:03 Dose: 100 mg Haloperidol (Haldol Injection (Fast Acting) -) 1 mg IM Q4H PRN PRN Reason: AGITATION Last Admin: 07/26/17 19:43 Dose: 1 mg Heparin Sodium (Porcine) (Heparin -) 5,000 unit SQ BID [facility] Last Admin: 07/31/17 09:03 Dose: 5,000 unit Hydralazine HCl (Apresoline Injection -) 10 mg IM Q8H PRN PRN Reason: HYPERTENSION Ampicillin Sodium/Sulbactam (Sodium 1.5 gm/ Sodium Chloride) 100 mls @ 200 mls/ hr IVPB Q8H-IV [facility] Last Admin: 07/31/17 09:02 Dose: 200 mls/hr Potassium Chloride/Sodium Chloride (Ns+20 Meq Kcl -) 20 meq in 1,000 mls @ 75 mls/hr IV ASDIR [facility] Last Admin: 07/30/17 16:59 Dose: 75 mls/hr Insulin Detemir (Levemir Vial) 14 units SQ HS [facility] Last Admin: 07/30/17 21:14 Dose: 14 units Ondansetron HCl (Zofran Injection) 4 mg IVPUSH Q6H PRN PRN Reason: NAUSEA Last Admin: 11/06/17 18:40 Dose: 4 mg Polyethylene Glycol (Miralax (For Daily Use) -) 17 gm PO DAILY [facility] Last Admin: 07/31/17 09:04 Dose: 17 gm Potassium Chloride (K-Dur -) 20 meq PO DAILY [facility] Last Admin: 07/31/17 09:04 Dose: 20 meq - Objective Vital Signs: Vital Signs Temperature 97.9 F 07/31/17 09:00 Pulse Rate 80 07/31/17 09:00 Respiratory Rate 18 07/31/17 09:00 Blood Pressure 166/96 07/31/17 09:00 O2 Sat by Pulse Oximetry (%) 96 07/31/17 09:00 Constitutional: Yes: Well Nourished, No Distress, Calm Eyes: Yes: WNL, Conjunctiva Clear HENT: Yes: WNL, Rhinnorhea Cardiovascular: Yes: WNL, Regular Rate and Rhythm, S1, S2 Respiratory: Yes: WNL, Regular, CTA Bilaterally Edema: LLE: Trace, RLE: Trace Labs: CBC, BMP 07/31/17 06:15 07/31/17 06:15 INR, PTT INR 1.02 (0.82-1.09) 07/25/17 11:02 Problem List - Problems (1) Asymptomatic bacteriuria Assessment/Plan: patient is on ampicillin/sulbactam Code(s): R82.71 - BACTERIURIA (2) Atrial fibrillation with RVR Assessment/Plan: rate controlled Code(s): I48.91 - UNSPECIFIED ATRIAL FIBRILLATION (3) CVA (cerebral vascular accident) Assessment/Plan: stable no changes being followed by neurology Code(s): I63.9 - CEREBRAL INFARCTION, UNSPECIFIED Qualifiers: CVA mechanism: unspecified Qualified Code(s): I63.9 - Cerebral infarction, unspecified (4) Dementia Assessment/Plan: no change Code(s): F03.90 - UNSPECIFIED DEMENTIA WITHOUT BEHAVIORAL DISTURBANCE (5) Diabetes Code(s): E11.9 - TYPE 2 DIABETES MELLITUS WITHOUT COMPLICATIONS Qualifiers: Diabetes mellitus type: type 2 Diabetes mellitus complication status: with unspecified complications Diabetes mellitus jail insulin use: without terminal operations supervisor use Qualified Code(s): E11.8 - Type 2 diabetes mellitus with unspecified complications (6) HLD (hyperlipidemia) Assessment/Plan: managed with atorvastatin Code(s): E78.5 - HYPERLIPIDEMIA, UNSPECIFIED (7) HTN (hypertension) Assessment/Plan: controlled Code(s): I10 - ESSENTIAL (PRIMARY) HYPERTENSION Assessment/Plan 1. Acute hypertensive encephalopathy mantain - [id number] - c/w ASA 325mg daily - Lipitor 10mg 2. A fib - [id number] warrants AC initiation - Neuro input prior to starting patient is on long acting diltiazem will contonine as per cardiology recommendation - diltiazem IVP prn 3. HOWARD - resolving with hydration - Change fluids NS 75cc/hr 4. Polycythemia - Likely due to dehydration, improving - Continue fluids 5. Sepsis due to UTI - followed by ID - patient is Afebrile - Continue ampicillin/sulbactam - Pre rubalcava micro results LFNB, previous e coli sensitive to unysan 6. Hypokalemia - Replete additional 40meq PO - Change fluids w. KCL 7. Breast CA - Continue arimidex 8. DVT ppx - Heparin sq
[2017-07-31] MEDS ORDERED: POTASSIUM CHLORIDE TABS 20 MEQ TABLET.ER (FP) PO ONE (13:00)
[2017-07-31] MEDS: SODIUM CHLORIDE 0.9%/KCL 20 MEQ/1,000 ML INFUS.BAG IV SCH (13:39)
--- NOTE | 2017-07-31 14:48 | EKG ---
Test Reason : Blood Pressure : / mmHG Vent. Rate : 090 BPM Atrial Rate : 090 BPM P-R Int : 154 ms QRS Dur : 110 ms QT Int : 370 ms P-R-T Axes : 061 -53 117 degrees QTc Int : 452 ms SINUS RHYTHM WITH OCCASIONAL PREMATURE VENTRICULAR COMPLEXES POSSIBLE LEFT ATRIAL ENLARGEMENT LEFT ANTERIOR FASCICULAR BLOCK LEFT VENTRICULAR HYPERTROPHY WITH REPOLARIZATION ABNORMALITY ABNORMAL ECG WHEN COMPARED WITH ECG OF 30-JUL-2017 08:54, SINUS RHYTHM HAS REPLACED ATRIAL FIBRILLATION VENT. RATE HAS DECREASED BY 61 BPM T WAVE INVERSION MORE EVIDENT IN ANTEROLATERAL LEADS Confirmed by DENA BUTTS MD ([id number]) on 07/31/2017 2:47:48 PM Referred By: Confirmed By:DENA BUTTS MD
--- NOTE | 2017-07-31 16:25 | PN ---
Progress Note (short form) - Note Progress Note: NEUROLOGY FOLLOW-UP: Events reviewed and discussed with family at the bedside. They confirm few years of mild memory and gait difficulties, worsening in the week prior to admission with c/o headache. After initial consultation Pt became febrile with >1000 WBC in the urine. ID consults and f/u's read and appreciated. Now on IV ampicillin. Family notes her cognition and level of consciousness have markedly improved. CT of head (reviewed) does indeed suggest a subacute Right occipital CVA, with underlying atrophy and severe microvascular changes. Exam: No bruits. Cannot name [facility], Ox Dec. No year. Misses finger counting in the left visual field and preferentially saccades to the Right. No facial. Gag OK No drift. Minimal left pronation. Symmetrical grasps. 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 Toxic-metabolic encephalopathy due to UTI. Cognition now improving somewhat. SUGGEST: Cont. current regimen. Cont. PT to mobilize Pt and gait with Walker. Agree with rehab placement at [facility] or [place]. Try donepezil 5 mg PO after breakfast. Check B12, B1, TSH, RPR. Repeat urine to assure sterility prior to D/C. Thank you very much, Ryland Henry MD
[2017-07-31] MEDS: ATORVASTATIN CA 10 MG TABLET (FP) PO SCH (21:13)
[2017-07-31] MEDS: INSULIN DETEMIR 100 UNITS/ML MDV SQ SCH (21:14)
[2017-08-01] MEDS ORDERED: PT OWN MED DRAWER 7, Y5N ONE ×3 (01:09→14:33)
[2017-08-01] MEDS: AMPICILLIN NA/SULBACTAM NA 1.5 GM in SODIUM CHLORIDE 100 ML IVPB SCH ×2 (01:16→11:46)
[2017-08-01 07:42] LABS: BASOPHIL 0.4 % (0-2.0); EOSINOPHIL 3.3 % (0-4.5); MCH 28.2 pg (25.7-33.7); MCHC 34.1 g/dl (32.0-36.0); MEAN CELL VOLUME 82.8 fl (80-96); NEUTROPHILS 68.5 % (42.8-82.8); PLATELET COUNT 149 K/MM3 (134-434); RDW 14.4 % (11.6-15.6); WHITE BLOOD COUNT 10.9 K/mm3 (4.0-10.0)
[2017-08-01 08:26] LABS: ALBUMIN 3.1 g/dl (3.4-5.0); ALK PHOS 85 U/L (45-117); ANION GAP 8 (8-16); BILIRUBIN,TOTAL 0.9 mg/dL (0.2-1.0); CALCIUM 8.2 mg/dL (8.5-10.1); CO2 27 mmol/L (21-32); CREATININE 0.7 mg/dL (0.55-1.02); GLUCOSE,RANDOM 127 mg/dL (74-106); SGOT/AST 29 U/L (15-37); SGPT/ALT 20 U/L (12-78); THYROID STIMULATING HORMONE 2.19 uIU/ml (0.358-3.74); TOT PROT 5.6 g/dl (6.4-8.2)
[2017-08-01] MEDS: ASPIRIN 325 MG ENTERIC COATED TABLET (FP) PO SCH (11:31)
[2017-08-01] MEDS: POTASSIUM CHLORIDE TABS 20 MEQ TABLET.ER (FP) PO SCH (11:31)
[2017-08-01] MEDS: DOCUSATE SODIUM 100 MG CAPSULE (FP) PO SCH ×2 (11:31→21:57)
[2017-08-01] MEDS: HEPARIN NA (PORCINE) 5,000 UNITS/ML 1ML VIAL SQ SCH (11:31)
[2017-08-01] MEDS: ANASTROZOLE 1 MG TABLET PO SCH (11:32)
[2017-08-01] MEDS: DONEPEZIL HCL 5 MG TABLET (FP) PO SCH (11:32)
--- NOTE | 2017-08-01 11:52 | PN ---
Progress Note, Physician Chief Complaint: Ms Enrique says she is doing well. Denies cp, sob, n/v. - Current Medication List Current Medications: Active Medications Acetaminophen (Tylenol -) 650 mg PO Q4H PRN PRN Reason: FEVER OR PAIN Last Admin: 07/30/17 17:37 Dose: 650 mg Anastrozole (Arimidex -) 1 mg PO DAILY [facility] Last Admin: 08/01/17 11:32 Dose: 1 mg Apixaban (Eliquis -) 5 mg PO BID [facility] Atorvastatin Calcium (Lipitor -) 10 mg PO HS [facility] Last Admin: 07/31/17 21:13 Dose: 10 mg Diltiazem HCl (Cardizem Injection -) 10 mg IVPUSH Q4H PRN PRN Reason: TACHYCARDIA Last Admin: 07/30/17 08:49 Dose: 10 mg Diltiazem HCl (Cardizem Cd -) 180 mg PO DAILY [facility] Last Admin: 08/01/17 11:32 Dose: 180 mg Docusate Sodium (Colace -) 100 mg PO BID [facility] Last Admin: 08/01/17 11:31 Dose: 100 mg Donepezil HCl (Aricept -) 5 mg PO DAILY [facility] Last Admin: 08/01/17 11:32 Dose: 5 mg Hydralazine HCl (Apresoline Injection -) 10 mg IM Q8H PRN PRN Reason: HYPERTENSION Ampicillin Sodium/Sulbactam (Sodium 1.5 gm/ Sodium Chloride) 100 mls @ 200 mls/ hr IVPB Q8H-IV [facility] Last Admin: 08/01/17 11:46 Dose: 200 mls/hr Insulin Detemir (Levemir Vial) 14 units SQ HS [facility] Last Admin: 07/31/17 21:14 Dose: 14 units Polyethylene Glycol (Miralax (For Daily Use) -) 17 gm PO DAILY [facility] Last Admin: 07/31/17 09:04 Dose: 17 gm Potassium Chloride (K-Dur -) 20 meq PO DAILY [facility] Last Admin: 08/01/17 11:31 Dose: 20 meq - Objective Vital Signs: Vital Signs Temperature 36.8 C 08/01/17 05:42 Pulse Rate 85 08/01/17 05:42 Respiratory Rate 19 08/01/17 05:42 Blood Pressure 151/87 08/01/17 05:42 O2 Sat by Pulse Oximetry (%) 95 07/31/17 21:00 Constitutional: Yes: Well Nourished, No Distress, Calm Cardiovascular: Yes: Pulse Irregular. No: Tachycardia, Gallop, Murmur, Rub Respiratory: Yes: Regular, CTA Bilaterally. No: Rales, Rhonchi, Wheezes Gastrointestinal: Yes: Normal Bowel Sounds, Soft. No: Distention, Tenderness Extremities: Yes: WNL Edema: No Labs: CBC, BMP 08/01/17 05:27 08/01/17 05:27 INR, PTT INR 1.02 (0.82-1.09) 07/25/17 11:02 Problem List - Problems (1) CVA (cerebral vascular accident) Code(s): I63.9 - CEREBRAL INFARCTION, UNSPECIFIED Qualifiers: CVA mechanism: unspecified Qualified Code(s): I63.9 - Cerebral infarction, unspecified (2) Diabetes Code(s): E11.9 - TYPE 2 DIABETES MELLITUS WITHOUT COMPLICATIONS Qualifiers: Diabetes mellitus type: type 2 Diabetes mellitus complication status: with unspecified complications Diabetes mellitus halfway insulin use: without halfway use Qualified Code(s): E11.8 - Type 2 diabetes mellitus with unspecified complications (3) HTN (hypertension) Code(s): I10 - ESSENTIAL (PRIMARY) HYPERTENSION (4) HLD (hyperlipidemia) Code(s): E78.5 - HYPERLIPIDEMIA, UNSPECIFIED (5) Breast cancer Code(s): C50.919 - MALIGNANT NEOPLASM OF UNSP SITE OF UNSPECIFIED FEMALE BREAST (6) Atrial fibrillation with RVR Code(s): I48.91 - UNSPECIFIED ATRIAL FIBRILLATION Assessment/Plan (1) CVA (cerebral vascular accident) Assessment/Plan: -case d/w neurology -secondary to atrial fibrillation -safe to start on anticoagulation per neurology -eliquis ordered -will stop aspirin since fully anticoagulating Code(s): I63.9 - CEREBRAL INFARCTION, UNSPECIFIED Qualifiers: CVA mechanism: unspecified Qualified Code(s): I63.9 - Cerebral infarction, unspecified; I63.9 - Cerebral infarction, unspecified; I63.9 - Cerebral infarction, unspecified; I63.9 - Cerebral infarction, unspecified (2) HTN (hypertension) Assessment/Plan: -placed on diltiazem for rate control -however not ideal -will d/w cardiology if planning on increasing diltiazem -if not, may need second agent Code(s): I10 - ESSENTIAL (PRIMARY) HYPERTENSION (3) Diabetes Assessment/Plan: -continue metformin and levemir -SSI -HgbA1c well controlled Code(s): E11.9 - TYPE 2 DIABETES MELLITUS WITHOUT COMPLICATIONS (4) HLD (hyperlipidemia) Assessment/Plan: -continue lipitor Code(s): E78.5 - HYPERLIPIDEMIA, UNSPECIFIED (5) Breast cancer Assessment/Plan: -continue arimidex Code(s): C50.919 - MALIGNANT NEOPLASM OF UNSP SITE OF UNSPECIFIED FEMALE BREAST (6) Metabolic encephalopathy -resolved (7) Atrial fibrillation with RVR -rate controlled -continue diltiazem -start eliquis, will d/w cardiology if other agent is better (8) UTI -appreciate ID assistance -currently on unasyn -can change to augmentin on discharge Dispo -plan on discharge tomorrow to SNF for rehab
--- NOTE | 2017-08-01 11:54 | PN ---
Progress Note (short form) - Note Progress Note: doing well, ambulated this weekend with PT mood much improved Vital Signs Period Temp Pulse Resp BP Sys/Wolf Pulse Ox Last 24 Hr 97.6 F-98.7 F 82-93 19-20 151-176/79-99 95 cor-rrr lungs decreased bs at bases abd soft,nt ext no edema CBC, BMP 08/01/17 05:27 08/01/17 05:27 Microbiology 07/27/17 19:30 Blood Culture - Preliminary Blood - Peripheral Venous NO GROWTH OBTAINED AFTER 96 HOURS, INCUBATION TO CONTINUE FOR 1 DAYS. 07/27/17 19:30 Blood Culture - Preliminary Blood - Peripheral Venous NO GROWTH OBTAINED AFTER 96 HOURS, INCUBATION TO CONTINUE FOR 1 DAYS. 07/27/17 21:00 Urine Culture - Final Urine - Urine - Catheterized Escherichia Coli Enterococcus Faecalis a/p mental status improved fevers resolved- UTI- day #4 unasyn, switch to po amox to finish 7 days management of CVA/Dementia/HTN per PMD please call back if needed Problem List - Problems (1) CVA (cerebral vascular accident) Code(s): I63.9 - CEREBRAL INFARCTION, UNSPECIFIED Qualifiers: Qualified Code(s): I63.9 - Cerebral infarction, unspecified (2) HTN (hypertension) Code(s): I10 - ESSENTIAL (PRIMARY) HYPERTENSION (3) Asymptomatic bacteriuria Code(s): R82.71 - BACTERIURIA (4) Dementia Code(s): F03.90 - UNSPECIFIED DEMENTIA WITHOUT BEHAVIORAL DISTURBANCE
--- NOTE | 2017-08-01 12:26 | PN ---
Progress Note, Physician Chief Complaint: cva History of Present Illness: no cp, sob, palpit, leg swelling - Current Medication List Current Medications: Active Medications Acetaminophen (Tylenol -) 650 mg PO Q4H PRN PRN Reason: FEVER OR PAIN Last Admin: 07/30/17 17:37 Dose: 650 mg Amoxicillin (Amoxicillin -) 500 mg PO TID [facility] Anastrozole (Arimidex -) 1 mg PO DAILY [facility] Last Admin: 08/01/17 11:32 Dose: 1 mg Apixaban (Eliquis -) 5 mg PO BID [facility] Atorvastatin Calcium (Lipitor -) 10 mg PO HS [facility] Last Admin: 07/31/17 21:13 Dose: 10 mg Diltiazem HCl (Cardizem Injection -) 10 mg IVPUSH Q4H PRN PRN Reason: TACHYCARDIA Last Admin: 07/30/17 08:49 Dose: 10 mg Diltiazem HCl (Cardizem Cd -) 180 mg PO DAILY [facility] Last Admin: 08/01/17 11:32 Dose: 180 mg Docusate Sodium (Colace -) 100 mg PO BID [facility] Last Admin: 08/01/17 11:31 Dose: 100 mg Donepezil HCl (Aricept -) 5 mg PO DAILY [facility] Last Admin: 08/01/17 11:32 Dose: 5 mg Hydralazine HCl (Apresoline Injection -) 10 mg IM Q8H PRN PRN Reason: HYPERTENSION Insulin Detemir (Levemir Vial) 14 units SQ HS [facility] Last Admin: 07/31/17 21:14 Dose: 14 units Polyethylene Glycol (Miralax (For Daily Use) -) 17 gm PO DAILY [facility] Last Admin: 07/31/17 09:04 Dose: 17 gm Potassium Chloride (K-Dur -) 20 meq PO DAILY [facility] Last Admin: 08/01/17 11:31 Dose: 20 meq - Objective Vital Signs: Vital Signs Temperature 98.3 F 08/01/17 05:42 Pulse Rate 85 08/01/17 05:42 Respiratory Rate 19 08/01/17 05:42 Blood Pressure 151/87 08/01/17 05:42 O2 Sat by Pulse Oximetry (%) 95 07/31/17 21:00 Constitutional: Yes: Well Nourished, No Distress, Calm Cardiovascular: Yes: Regular Rate and Rhythm, S1, S2. No: Gallop, Murmur Respiratory: Yes: Regular, CTA Bilaterally. No: Accessory Muscle Use, Rales, Wheezes Extremities: No: Cold Edema: No Neurological: Yes: Alert. No: Seizure Psychiatric: No: Agitated Labs: CBC, BMP 08/01/17 05:27 08/01/17 05:27 INR, PTT INR 1.02 (0.82-1.09) 07/25/17 11:02 - ....Imaging EKG: Other (tele: NSR) Assessment/Plan cxr: clear lungs ecg 07/25/17: sr, nl intervals, lvh, no ischemic changes carotids 07/2017: no sig stenosis echo 07/2017: tds, mild dec lvef, nl rv, mod-sev mr a/p: 86 f hx htn, hld, dm, here with acute cva. htn: -moderately elevated bp's here -on dilt for PAF -add amlodipine hld: -cont statin new afib with rvr: -having pafib here with rvr at times when in afib -rate seems to respond better to dilt than bb so have changed to po dilt -cont tele -[facility] ac. d/w'd dr morrow today who cleared her to being-- eliquis started cva: -neuro following mr: -echo here TDS, reports mild dec lvef, nl rv, mod-sev mr -no signs chf -repeat echo as outpt to monitor
--- NOTE | 2017-08-01 12:35 | PN ---
Progress Note, Physician Chief Complaint: cva History of Present Illness: denies sob, palpitations, cp, leg swelling - Current Medication List Current Medications: Active Medications Acetaminophen (Tylenol -) 650 mg PO Q4H PRN PRN Reason: FEVER OR PAIN Last Admin: 07/30/17 17:37 Dose: 650 mg Amlodipine Besylate (Norvasc -) 5 mg PO DAILY [facility] Amoxicillin (Amoxicillin -) 500 mg PO TID [facility] Anastrozole (Arimidex -) 1 mg PO DAILY [facility] Last Admin: 08/01/17 11:32 Dose: 1 mg Apixaban (Eliquis -) 5 mg PO BID [facility] Atorvastatin Calcium (Lipitor -) 10 mg PO HS [facility] Last Admin: 07/31/17 21:13 Dose: 10 mg Diltiazem HCl (Cardizem Injection -) 10 mg IVPUSH Q4H PRN PRN Reason: TACHYCARDIA Last Admin: 07/30/17 08:49 Dose: 10 mg Diltiazem HCl (Cardizem Cd -) 180 mg PO DAILY [facility] Last Admin: 08/01/17 11:32 Dose: 180 mg Docusate Sodium (Colace -) 100 mg PO BID [facility] Last Admin: 08/01/17 11:31 Dose: 100 mg Donepezil HCl (Aricept -) 5 mg PO DAILY [facility] Last Admin: 08/01/17 11:32 Dose: 5 mg Hydralazine HCl (Apresoline Injection -) 10 mg IM Q8H PRN PRN Reason: HYPERTENSION Insulin Detemir (Levemir Vial) 14 units SQ HS [facility] Last Admin: 07/31/17 21:14 Dose: 14 units Polyethylene Glycol (Miralax (For Daily Use) -) 17 gm PO DAILY [facility] Last Admin: 07/31/17 09:04 Dose: 17 gm Potassium Chloride (K-Dur -) 20 meq PO DAILY [facility] Last Admin: 08/01/17 11:31 Dose: 20 meq - Objective Vital Signs: Vital Signs Temperature 98.3 F 08/01/17 05:42 Pulse Rate 85 08/01/17 05:42 Respiratory Rate 19 08/01/17 05:42 Blood Pressure 151/87 08/01/17 05:42 O2 Sat by Pulse Oximetry (%) 95 07/31/17 21:00 Constitutional: Yes: Well Nourished, No Distress, Calm Cardiovascular: Yes: Regular Rate and Rhythm, S1, S2. No: JVD, Gallop, Murmur Respiratory: Yes: Regular, CTA Bilaterally, Wheezes (bases). No: Accessory Muscle Use, Rales Extremities: No: Cold Edema: No Neurological: Yes: Alert, Oriented Psychiatric: No: Agitated Labs: CBC, BMP 08/01/17 05:27 08/01/17 05:27 INR, PTT INR 1.02 (0.82-1.09) 07/25/17 11:02 - ....Imaging EKG: Other (tele: NSR) Assessment/Plan cxr: clear lungs ecg 07/25/17: sr, nl intervals, lvh, no ischemic changes carotids 07/2017: no sig stenosis echo 07/2017: tds, mild dec lvef, nl rv, mod-sev mr a/p: 86 f hx htn, hld, dm, here with acute cva. htn: -moderately elevated bp's here -on dilt for PAF -add amlodipine hld: -cont statin new afib with rvr: -having pafib here with rvr at times when in afib -rate seems to respond better to dilt than bb so have changed to po dilt -cont tele -[facility] warrants ac. d/w'd dr morrow today who cleared her to being-- eliquis started cva: -neuro following mr: -echo here TDS, reports mild dec lvef, nl rv, mod-sev mr -no signs chf -repeat echo as outpt to monitor
[2017-08-01] MEDS: POLYETHYLENE GLYCOL 3350 119 GM BTL PO SCH (15:02)
[2017-08-01] MEDS: AMOXICILLIN 500 MG CAPSULE (FP) PO SCH ×2 (15:03→22:28)
[2017-08-01] MEDS: amLODIPine BESYLATE 5 MG TABLET (FP) PO SCH (15:03)
--- NOTE | 2017-08-01 15:26 | CONS ---
DATE OF CONSULTATION: 07/26/2017 REQUESTING PHYSICIAN: Werner Falcon MD HISTORY: This is an 86-year-old woman admitted from home with confusion, facial droop, and slurred speech on the . She had a CAT scan that showed a right occipital acute/subacute infarct. She was out of the window for tPA, so she was admitted for further Neurology evaluation. Her speech has improved overnight. She has had no fevers. She is confused and sometimes agitated, and I am asked to see her for possible UTI. I spoke at length with the daughter, who is at the bedside, as well as with her son, who she lives with. She is , and she currently lives with her son. She had no fevers at home, had no fever on admission. PAST MEDICAL HISTORY: Notable hypertension, diabetes, and dementia. Also notable for history of hyperlipidemia as well as breast cancer. PAST SURGICAL HISTORY: Appendectomy. ALLERGIES: She has no known drug allergies. MEDICATIONS: At home included aspirin, atorvastatin, magnesium, metformin, metoprolol, multivitamins, potassium, Arimidex, calcium carbonate, insulin, and losartan. FAMILY HISTORY: Noncontributory. SOCIAL HISTORY: She is . She lives with her son. REVIEW OF SYSTEMS: There have been no fevers or chills. She has been at her baseline at home. She suffers from some memory deficits. PHYSICAL EXAMINATION: General: She is awake and alert. At the time of my evaluation on the she was somewhat agitated. Vital Signs: She is afebrile. HEENT: Normocephalic. Her eyes are anicteric. Neck: Supple. Lungs: Clear to auscultation. Heart: Regular rate and rhythm. Abdomen: Soft and nontender. Extremities: Without edema. LABORATORY DATA: Urinalysis was negative. Low colony count urine culture with 2 organisms from a clean catch of Escherichia coli and enterococcus. Her white count was 10.6, hemoglobin 15.2. Her BUN 23, creatinine 1.1 with a sodium of 132. In summary, this is an elderly woman with acute CVA management per Neurology, dementia, hypertension. She has low colony count with a negative UA. No symptoms consistent with asymptomatic bacteriuria so would not treat at this time for urinary tract infection. Would need to reconsider if indeed she becomes symptomatic. OZZY QUINTANILLA M.D. /[id number]
[2017-08-01] MEDS: ACETAMINOPHEN 325 MG TABLET (FP) PO PRN (17:50)
[2017-08-01] MEDS: APIXABAN 5 MG TABLET PO SCH (21:57)
[2017-08-01] MEDS: ATORVASTATIN CA 10 MG TABLET (FP) PO SCH (21:57)
[2017-08-01] MEDS: INSULIN DETEMIR 100 UNITS/ML MDV SQ SCH (22:00)
[2017-08-02] MEDS: AMOXICILLIN 500 MG CAPSULE (FP) PO SCH (06:35)
[2017-08-02 07:32] LABS: BASOPHIL 0.6 % (0-2.0); EOSINOPHIL 2.7 % (0-4.5); MCH 28.2 pg (25.7-33.7); MCHC 34.2 g/dl (32.0-36.0); MEAN CELL VOLUME 82.5 fl (80-96); MEAN PLT VOLUME 9.1 fl (7.5-11.1); NEUTROPHILS 71.4 % (42.8-82.8); PLATELET COUNT 175 K/MM3 (134-434); RDW 14.4 % (11.6-15.6); WHITE BLOOD COUNT 10.3 K/mm3 (4.0-10.0)
[2017-08-02 08:11] LABS: GLUCOSE,RANDOM 202 mg/dL (74-106)
[2017-08-02 08:13] LABS: ANION GAP 11 (8-16); CALCIUM 8.9 mg/dL (8.5-10.1); CO2 26 mmol/L (21-32); CREATININE 0.8 mg/dL (0.55-1.02); MAGNESIUM 1.9 mg/dL (1.8-2.4)
[2017-08-02] MEDS ORDERED: PT OWN MED DRAWER 7, Y5N ONE (08:44)
[2017-08-02] MEDS: POTASSIUM CHLORIDE TABS 20 MEQ TABLET.ER (FP) PO SCH ×2 (08:47→09:00)
[2017-08-02] MEDS: ANASTROZOLE 1 MG TABLET PO SCH ×2 (08:48→09:00)
[2017-08-02] MEDS: DOCUSATE SODIUM 100 MG CAPSULE (FP) PO SCH ×2 (08:48→09:00)
[2017-08-02] MEDS: DONEPEZIL HCL 5 MG TABLET (FP) PO SCH ×2 (08:48→09:00)
[2017-08-02] MEDS: amLODIPine BESYLATE 5 MG TABLET (FP) PO SCH ×2 (08:48→09:00)
[2017-08-02] MEDS: APIXABAN 5 MG TABLET PO SCH ×2 (08:49→09:00)
[2017-08-02] MEDS: POLYETHYLENE GLYCOL 3350 119 GM BTL PO SCH ×2 (08:49→09:00)
[2017-08-02 10:51] VITALS: BP 150/86; PULSE 92; TEMP 99.2
--- NOTE | 2017-08-02 11:10 | DS ---
Physical Examination Vital Signs: Vital Signs Temperature 37.3 C 08/02/17 10:00 Pulse Rate 92 H 08/02/17 10:00 Respiratory Rate 16 08/02/17 10:00 Blood Pressure 150/86 08/02/17 10:00 O2 Sat by Pulse Oximetry (%) 96 08/01/17 21:00 Constitutional: Yes: Well Nourished, No Distress, Calm Cardiovascular: Yes: Pulse Irregular. No: Tachycardia, Gallop, Murmur, Rub Respiratory: Yes: Regular, CTA Bilaterally. No: Rales, Rhonchi, Wheezes Gastrointestinal: Yes: Normal Bowel Sounds, Soft. No: Distention, Tenderness Extremities: Yes: WNL Edema: No Labs: CBC, BMP 08/02/17 05:10 08/02/17 05:10 Discharge Summary Reason For Visit: CVA Current Active Problems Asymptomatic bacteriuria (Acute) Atrial fibrillation with RVR (Acute) Breast cancer (Acute) CVA (cerebral vascular accident) (Acute) Dementia (Acute) Diabetes (Acute) HLD (hyperlipidemia) (Acute) HTN (hypertension) (Acute) Hospital Course: (1) CVA (cerebral vascular accident) Code(s): I63.9 - CEREBRAL INFARCTION, UNSPECIFIED Qualifiers: CVA mechanism: unspecified Qualified Code(s): I63.9 - Cerebral infarction, unspecified; I63.9 - Cerebral infarction, unspecified; I63.9 - Cerebral infarction, unspecified; I63.9 - Cerebral infarction, unspecified (2) HTN (hypertension) Code(s): I10 - ESSENTIAL (PRIMARY) HYPERTENSION (3) Diabetes Code(s): E11.9 - TYPE 2 DIABETES MELLITUS WITHOUT COMPLICATIONS (4) HLD (hyperlipidemia) Code(s): E78.5 - HYPERLIPIDEMIA, UNSPECIFIED (5) Breast cancer Code(s): C50.919 - MALIGNANT NEOPLASM OF UNSP SITE OF UNSPECIFIED FEMALE BREAST (6) Metabolic encephalopathy (7) Atrial fibrillation with RVR (8) UTI Ms Enrique is a very pleasant 86 year old female who came in with acute CVA secondary to afib with hypertensive encephalopathy which was complicated by UTI causing metabolic encephalopathy. She was seen by neurology but was not a candidate for TPA. She was admitted to telemetry. She was allowed permissive HTN for 24 hours as per protocol. After that her blood pressure was treated. On admission she was in sinus rhythm but converted to atrial fibrillation with RVR. Suspect had history of PAF and became persistent secondary to stroke. Cardiology was consulted and changed metoprolol to diltiazem which controlled her heart rate better. Case d/w neurology and approved for anticoagulation, started on eliquis. She was also found to have a UTI and was started on antibiotics, she can be changed to augmentin to finish a 7 day course per ID. Currently she is stable for discharge to SNF. 37 minutes spent in preparation of this discharge Condition: Stable - Instructions Diet, Activity, Other Instructions: diabetic diet with chopped meat. Up with assistance, further activity per PT at SNF Referrals: Musa Ellington MD [Primary Care Provider] - Harvinder Butt MD [Staff Physician] - Ryland Henry MD [Staff Physician] - Disposition: [facility] - Home Medications Comprehensive Discharge Medication List: Ambulatory Orders Atorvastatin Ca [Lipitor] 10 mg PO DAILY #0 tablet 05/18/13 Magnesium Oxide [Mag-Ox -] 400 mg PO BID #0 tablet 05/18/13 Metformin HCl [Glucophage -] 1,000 mg PO BID #0 tablet 05/18/13 Multivit-Min/FA/Lycopene/Lut [Centrum Silver Tablet] 1 each PO DAILY #0 tablet 05/18/13 Potassium Chloride [Klor-Con] 20 meq PO DAILY #0 packet 05/18/13 Anastrozole [Arimidex -] 1 mg PO DAILY 11/13/14 Calcium Carbonate [Tums] 500 mg PO DAILY 11/13/14 Insulin (Levemir) [Levemir Flexpen -] 14 units SQ HS 11/13/14 Amlodipine Besylate [Norvasc -] 5 mg PO DAILY tablet 08/02/17 Amoxicillin - [Amoxicillin 500mg Capsule -] 500 mg PO TID 3 Days capsule Apixaban [Eliquis -] 5 mg PO BID tablet 08/02/17 Diltiazem Cd [Cardizem Cd -] 180 mg PO DAILY cap.cd.24h 08/02/17 Donepezil HCl [Aricept -] 5 mg PO DAILY tablet 08/02/17
--- NOTE | 2017-08-02 12:32 | PN ---
Progress Note (short form) - Note Progress Note: Chief Complaint: cva History of Present Illness: denies sob, palpitations, cp, leg swelling. states she had h/a last night. Current Medications Acetaminophen (Tylenol -) 650 mg PO Q4H PRN PRN Reason: FEVER OR PAIN Last Admin: 08/01/17 17:50 Dose: 650 mg Amlodipine Besylate (Norvasc -) 5 mg PO DAILY [facility] Last Admin: 08/02/17 08:48 Dose: 5 mg Amoxicillin (Amoxicillin -) 500 mg PO TID [facility] Last Admin: 08/02/17 06:35 Dose: 500 mg Anastrozole (Arimidex -) 1 mg PO DAILY [facility] Last Admin: 08/02/17 08:48 Dose: 1 mg Apixaban (Eliquis -) 5 mg PO BID [facility] Last Admin: 08/02/17 08:49 Dose: 5 mg Atorvastatin Calcium (Lipitor -) 10 mg PO HS [facility] Last Admin: 08/01/17 21:57 Dose: 10 mg Diltiazem HCl (Cardizem Injection -) 10 mg IVPUSH Q4H PRN PRN Reason: TACHYCARDIA Last Admin: 07/30/17 08:49 Dose: 10 mg Diltiazem HCl (Cardizem Cd -) 180 mg PO DAILY [facility] Last Admin: 08/02/17 08:48 Dose: 180 mg Docusate Sodium (Colace -) 100 mg PO BID [facility] Last Admin: 08/02/17 08:48 Dose: 100 mg Donepezil HCl (Aricept -) 5 mg PO DAILY [facility] Last Admin: 08/02/17 08:48 Dose: 5 mg Hydralazine HCl (Apresoline Injection -) 10 mg IM Q8H PRN PRN Reason: HYPERTENSION Insulin Detemir (Levemir Vial) 14 units SQ HS [facility] Last Admin: 08/01/17 22:00 Dose: Not Given Polyethylene Glycol (Miralax (For Daily Use) -) 17 gm PO DAILY [facility] Last Admin: 08/02/17 08:49 Dose: 17 gm Potassium Chloride (K-Dur -) 20 meq PO DAILY [facility] Last Admin: 08/02/17 08:47 Dose: 20 meq Vital Signs - 24 hr 08/01/17 08/01/17 08/01/17 18:00 21:00 22:00 Temperature 98.4 F 97.9 F Pulse Rate 90 90 Respiratory 19 18 18 Rate Blood Pressure 171/94 154/94 O2 Sat by Pulse 96 Oximetry (%) 08/02/17 08/02/17 08/02/17 02:00 06:00 09:00 Temperature 98.0 F 98.1 F Pulse Rate 75 90 Respiratory 18 18 Rate Blood Pressure 119/60 149/86 O2 Sat by Pulse 93 L Oximetry (%) 08/02/17 10:00 Temperature 99.2 F Pulse Rate 92 H Respiratory 16 Rate Blood Pressure 150/86 O2 Sat by Pulse Oximetry (%) Constitutional: Yes: Well Nourished, No Distress, Calm Cardiovascular: Yes: Regular Rate and Rhythm, S1, S2. No: JVD, Gallop, Murmur Respiratory: Yes: Regular, CTA Bilaterally, Wheezes (bases). No: Accessory Muscle Use, Rales Extremities: No: Cold Edema: No Neurological: Yes: Alert, Oriented Psychiatric: No: Agitated Labs: CBC, BMP 08/02/17 05:10 08/02/17 05:10 Laboratory Tests 08/01/17 08/02/17 05:27 05:10 Magnesium 1.9 TSH 2.19 - ....Imaging EKG: Other (tele: sr 90's/sinus tach 100's) Assessment/Plan cxr: clear lungs ecg 07/25/17: sr, nl intervals, lvh, no ischemic changes carotids 07/2017: no sig stenosis echo 07/2017: tds, mild dec lvef, nl rv, mod-sev mr a/p: 86 f hx htn, hld, dm, here with acute cva. htn: -moderately elevated bp's here -on dilt for PAF -added amlodipine - 08/02 bp running on higher end. Would change diltiazem to 120 mg bid starting tomorrow. hld: -cont statin new afib with rvr: -having pafib here with rvr at times when in afib -rate seems to respond better to dilt than bb so have changed to po dilt -chads[facility] warrants ac. d/w'd dr morrow who cleared her for AC --> eliquis started - 08/02: in SR. HR's slightly up. Increasing dilt to 120 bid as mentioned above. - lyte repletion prn cva: -neuro following mr: -echo here TDS, reports mild dec lvef, nl rv, mod-sev mr -no signs chf -repeat echo as outpt to monitor for improvement with rate control. stable for d/c from CV perspective.
--- NOTE | 2017-08-02 15:51 | EKG ---
Test Reason : Blood Pressure : / mmHG Vent. Rate : 081 BPM Atrial Rate : 081 BPM P-R Int : 168 ms QRS Dur : 124 ms QT Int : 386 ms P-R-T Axes : 058 -55 090 degrees QTc Int : 448 ms NORMAL SINUS RHYTHM POSSIBLE LEFT ATRIAL ENLARGEMENT LEFT ANTERIOR FASCICULAR BLOCK INTRAVENTRICULAR NON-SPECIFIC INTRA-VENTRICULAR CONDUCTION DELAY ABNORMAL ECG WHEN COMPARED WITH ECG OF 16-MAY-2013 12:36, LEFT ANTERIOR FASCICULAR BLOCK IS NOW PRESENT NONSPECIFIC T WAVE ABNORMALITY, WORSE IN INFERIOR LEADS QT HAS SHORTENED REPEAT EKG INDICATED Confirmed by DENA BUTTS MD ([id number]) on 08/02/2017 3:51:15 PM Referred By: Confirmed By:DENA BUTTS MD
== END 2017-08-02 14:21 | DRG 64 ==
LOC: JER 10:39 → JERBED 12:59 → J4W 20:00
PROVIDERS: ADMIT Internal Medicine; ATTEND Internal Medicine
DX: I63.9 Cerebral infarction, unspecified (principal); G92 Toxic encephalopathy; N39.0 Urinary tract infection, site not specified; I67.4 Hypertensive encephalopathy; N17.9 Acute kidney failure, unspecified; I10 Essential (primary) hypertension; E11.9 Type 2 diabetes mellitus without complications; E78.5 Hyperlipidemia, unspecified; I48.91 Unspecified atrial fibrillation; F03.90 Unspecified dementia, unspecified severity, without behavioral disturbance, psychotic disturbance, mood disturbance, and anxiety; E87.6 Hypokalemia; E86.0 Dehydration; E83.41 Hypermagnesemia; R29.705 NIHSS score 5; C50.919 Malignant neoplasm of unspecified site of unspecified female breast
CPT/HCPCS: 36415; 70450-TC; 71010-TC; 80048; 80053; 80061; 81003; 81015; 82550; 82570; 82607; 83036; 83721; 83735; 83930; 83935; 84100; 84300; 84425; 84443; 84484; 85025; 85027; 85610; 86593; 86850; 86870; 86900; 86901; 86902; 87040; 87086; 87186; 93005; 93010; 93306-TC; 93880-TC; 97116-GP; 97161-GP; 99285-25; J1644

== ENCOUNTER 2017-11-13 20:08 | Inpatient (IN) | payer OTHER, BC ==
[2017-11-13] MEDS ORDERED: SODIUM CHLORIDE 1,000 ML IV SCH (20:15)
--- NOTE | 2017-11-13 20:17 | PDOC ---
Attending Attestation - Resident Resident Name: Marcos Jameson - ED Attending Attestation I have performed the following: I have examined & evaluated the patient, The case was reviewed & discussed with the resident, I agree w/resident's findings & plan, Exceptions are as noted - Physicial Exam PE: GENERAL: Awake, alert, and oriented to person and place, in no acute distress HEAD: No signs of trauma EYES: PERRLA, EOMI, sclera anicteric, conjunctiva clear ENT: Auricles normal inspection, hearing grossly normal, nares patent, oropharynx clear without exudates. Moist mucosa NECK: Normal ROM, supple, no lymphadenopathy, JVD, or masses LUNGS: Breath sounds equal, clear to auscultation bilaterally. No wheezes, and no crackles HEART: Regular rate and rhythm, normal S1 and S2, no murmurs, rubs or gallops ABDOMEN: Soft, nontender, normoactive bowel sounds. No guarding, no rebound. No masses EXTREMITIES: Normal range of motion, no edema. No clubbing or cyanosis. No cords, erythema, or tenderness NEUROLOGICAL: Cranial nerves II through XII grossly intact. Normal speech. Motor and sensation intact. See NIHSS. SKIN: Warm, Dry, normal turgor, no rashes or lesions noted. - Medical Decision Making Pt with acute change in mental status. As per family she was confused, now back at baseline. She has had similar symptoms in the past with UTIs. As her symptoms are rapidly improving in the ED, will not give tPA. Will treat UTI and admit for neuro workup. 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 As per EMS, patient was unable to move L upper extremity in field. Upon arrival to ED, patients weakness resolved. Her son who is the primary combat systems operator reports new confusion which is not normal for her and presents to the ED for further evaluation. Son also reports patient has not been active lately and has frequent UTIs. PCP: Dr. Ellignton - Medical Decision Making 11/13/17 21:54 Neurology customer contact specialist (Dr. Garcia) paged via phone answering service. Awaiting call back. 11/13/17 21:55 Jose returned the page and the patient's case was discussed. Documentation prepared by Asia Dsouza, acting as medical staff coordinator for Marian Sinha MD <Asia Dsouza - Last Filed: 11/13/17 22:45> NIH Stroke Scale - Initial Evaluation Level of consciousness: Alert Ask patient the month and their age: Answers one correctly Ask patient to open & close eyes; make fist and let go: Obeys both correctly Best gaze (horizontal eye movement): Normal Visual field testing: No visual field loss Facial paresis (Show teeth/raise eyebrows/close eyes tight): Normal symmetrical movement Motor Function: Left Arm: Normal Motor Function: Right Arm: Normal (extends arm 90 (or 45) degrees for 10 seconds without drift Motor Function: Left Leg: Normal (extends leg 30 degrees for 5 seconds without drift) Motor Function: Right Leg: Normal (extends leg 30 degrees for 5 seconds without drift) Limb Ataxia: No ataxia Sensory(Use pinprick test arms,legs,trunk,face/side to side): Normal Best language (Describe picture, name items, read sentences): Mild to moderate aphasia (expressive aphasia is chronic from last stroke as per family) Dysarthria (read several words): Normal articulation Extinction and Inattention: No abnormality - Total Score NIH Stroke Scale Score: 2 <Marian Sinha - Last Filed: 11/13/17 22:27>
--- NOTE | 2017-11-13 20:52 | PDOC ---
History of Present Illness - General Chief Complaint: CVA/TIA Stated Complaint: POSSIBLE STROKE Time Seen by Provider: 11/13/17 20:15 History Source: Patient, EMS, Family - History of Present Illness Initial Comments: 11/13/17 20:55 Patient is an 86F with history of HTN, IDDM, stroke in 08/05 w/o major residual deficit and dementia here today from home via EMS complaining of change in mental status with possible left arm weakness. EMS reports left arm weakness in the field that resolved by arrival to the hospital. Family reports no left arm weakness, but does complain of a change in her mental status. Patient denies chest pain, shortness of breath, abdominal pain, and leg pain. Daughter and son reports that she has been at her baseline lately. Her daughter reports the patient has had issues with UTI and altered mental status in the past. Family states that her face looks normal for her despite small droop. Family states that her speech has become worse, possibly over the past few days. NIH Stroke Scale - Last Known Well Date/Time & Onset Date Last Known Well: 11/13/17 Time Last Known Well: 19:30 - Initial Evaluation Level of consciousness: Alert Ask patient the month and their age: Both incorrect Ask patient to open & close eyes; make fist and let go: Obeys both correctly Best gaze (horizontal eye movement): Normal Visual field testing: No visual field loss Facial paresis (Show teeth/raise eyebrows/close eyes tight): Minor paralysis ( flattened nasolabial fold, asymmetry on smiling) Motor Function: Left Arm: Normal Motor Function: Right Arm: Normal (extends arm 90 (or 45) degrees for 10 seconds without drift Motor Function: Left Leg: Drift Motor Function: Right Leg: Drift Limb Ataxia: No ataxia Sensory(Use pinprick test arms,legs,trunk,face/side to side): Normal Best language (Describe picture, name items, read sentences): Mild to moderate aphasia Dysarthria (read several words): Mild to moderate slurring of words Extinction and Inattention: No abnormality - Total Score NIH Stroke Scale Score: 7 Past History - Past Medical History Allergies/Adverse Reactions: Allergies Allergy/AdvReac Type Severity Reaction Status Date / Time No Known Allergies Allergy Verified 11/13/17 20:40 Home Medications: Ambulatory Orders Atorvastatin Ca [Lipitor] 10 mg PO DAILY #0 tablet 05/18/13 Magnesium Oxide [Mag-Ox -] 400 mg PO BID #0 tablet 05/18/13 Multivit-Min/FA/Lycopene/Lut [Centrum Silver Tablet] 1 each PO DAILY #0 tablet 05/18/13 Potassium Chloride [Klor-Con] 20 meq PO DAILY #0 packet 05/18/13 metFORMIN HCL [Glucophage -] 1,000 mg PO BID #0 tablet 05/18/13 Anastrozole [Arimidex -] 1 mg PO DAILY 11/13/14 Calcium Carbonate [Tums] 500 mg PO DAILY 11/13/14 Insulin (Levemir) [Levemir Flexpen -] 14 units SQ HS 11/13/14 Amlodipine Besylate [Norvasc -] 5 mg PO DAILY tablet 08/02/17 Amoxicillin - [Amoxicillin 500mg Capsule -] 500 mg PO TID 3 Days capsule Apixaban [Eliquis -] 5 mg PO BID tablet 08/02/17 Diltiazem Cd [Cardizem Cd -] 120 mg PO BID cap.cd.24h 08/02/17 Donepezil HCl [Aricept -] 5 mg PO DAILY tablet 08/02/17 COPD: No Diabetes: Yes (type 2) HTN: Yes Hypercholesterolemia: Yes - Surgical History Appendectomy: Yes - Suicide/Smoking/Psychosocial Hx Smoking Status: No Smoking History: Never smoked Have you smoked in the past 12 months: No Number of Cigarettes Smoked Daily: 0 Information on smoking cessation initiated: No Hx Alcohol Use: No Drug/Substance Use Hx: No Substance Use Type: None Review of Systems - Review of Systems Comments:: 11/13/17 21:12 GENERAL/CONSTITUTIONAL: No fever or chills. HEAD, EYES, EARS, NOSE AND THROAT: No change in vision. No sore throat. CARDIOVASCULAR: No chest pain or shortness of breath RESPIRATORY: No cough, wheezing, or hemoptysis. GASTROINTESTINAL: No nausea, vomiting, diarrhea or constipation. GENITOURINARY: No dysuria, frequency, or change in urination. MUSCULOSKELETAL: No joint or muscle swelling or pain. No neck or back pain. SKIN: No rash NEUROLOGIC: Positive for headache. Negative for vertigo, loss of consciousness, or change in strength/sensation. ENDOCRINE: No increased thirst. No abnormal weight change ALLERGIC/IMMUNOLOGIC: No hives or skin allergy. *Physical Exam - Vital Signs Last Vital Signs Temp Pulse Resp BP Pulse Ox 98.1 F 84 16 170/118 96 11/13/17 20:10 11/13/17 20:10 11/13/17 20:10 11/13/17 20:10 11/13/17 20:10 - Physical Exam Comments: 11/13/17 21:14 GENERAL: Awake, alert, and oriented to self and place, not to year, in no acute distress HEAD: No signs of trauma, normocephalic, atraumatic EYES: PERRLA, EOMI, sclera anicteric, conjunctiva clear ENT: Auricles normal inspection, hearing grossly normal, nares patent, oropharynx clear without exudates. Moist mucosa NECK: Normal ROM, supple, no lymphadenopathy, JVD, or masses LUNGS: No distress, speaks full sentences, clear to auscultation bilaterally HEART: Regular rate and rhythm, normal S1 and S2, no murmurs, rubs or gallops, peripheral pulses normal and equal bilaterally. ABDOMEN: Soft, nontender. No guarding, no rebound. No masses EXTREMITIES: Normal inspection, Normal range of motion, no edema. No clubbing or cyanosis. NEUROLOGICAL: Cranial nerves II through XII grossly intact. Slight dysarthria, small left side facial droop SKIN: Warm, Dry, normal turgor, no rashes or lesions noted. ED Treatment Course - LABORATORY CBC & Chemistry Diagram: 11/13/17 21:32 11/13/17 20:46 Medical Decision Making - Medical Decision Making 11/13/17 21:17 Patient is 86F with history of prior stroke, IDDM, HTN, dementia here today with possible TIA. Vital signs stable, notable for blood pressure to 170s. Stroke scale 7, but without focal deficits. Pictured muddied by different reports in field. Differential diagnosis includes, but is not limited to: TIA, UTI, dementia. Do not believe patient is tPA candidate due to recent stroke, advanced age, unclear picture and resolving symptoms. EKG shows normal sinus rhythm with one PVC. Left axis. LVH. Left anterior fasicular block. No st elevations/depressions. T wave inversions in II, III, aVF , V5, V6. 11/13/17 22:48 Laboratory Tests 11/13/17 11/13/17 11/13/17 20:46 20:46 20:46 WBC Hgb Hct Plt Count INR 1.28 H BUN 25 H Creatinine 0.9 Troponin I 0.04 Urine WBC (Auto) 11/13/17 11/13/17 21:30 21:32 WBC 8.6 Hgb 13.8 Hct 41.3 Plt Count 183 INR BUN Creatinine Troponin I Urine WBC (Auto) 17 CBC normal. INR slightly elevated, kidney function normal, UA positive for UTI. Will treat with rocephin. 11/14/17 05:39 Admitted to [facility] via [facility] *DC/Admit/Observation/Transfer Diagnosis at time of Disposition: CVA (cerebral vascular accident) - Discharge Dispostion Condition at time of disposition: Guarded Admit: Yes - Referrals - Patient Instructions - Post Discharge Activity
[2017-11-13 21:07] LABS: INR 1.28 (0.82-1.09); PROTHROMBIN TIME (PATIENT) 14.5 SEC (9.98-11.88)
[2017-11-13 21:17] LABS: ALBUMIN 3.8 g/dl (3.4-5.0); ALK PHOS 102 U/L (45-117); ANION GAP 10 (8-16); BILIRUBIN,TOTAL 0.5 mg/dL (0.2-1.0); BLOOD UREA NITROGEN 25 mg/dL (7-18); CALCIUM 8.8 mg/dL (8.5-10.1); CHLORIDE 108 mmol/L (98-107); CHOLESTEROL 126 mg/dL (50-200); CO2 24 mmol/L (21-32); CREATININE 0.9 mg/dL (0.55-1.02); GLUCOSE,RANDOM 162 mg/dL (74-106); HDL CHOLESTEROL 51 mg/dL (40-60); POTASSIUM 3.6 mmol/L (3.5-5.1); SGOT/AST 29 U/L (15-37); SGPT/ALT 21 U/L (12-78); SODIUM 142 mmol/L (136-145); TOT PROT 6.6 g/dl (6.4-8.2); TRIGLYCERIDES 249 mg/dL (35-160)
[2017-11-13 21:37] LABS: URINE APPEARANCE CLEAR; URINE BILIRUBIN NEGATIVE (NEGATIVE); URINE BLOOD 1+ (NEGATIVE); URINE COLOR STRAW; URINE GLUCOSE (UA) NEGATIVE (NEGATIVE); URINE KETONE NEGATIVE (NEGATIVE); URINE NITRITE NEGATIVE (NEGATIVE); URINE PROTEIN NEGATIVE (NEGATIVE); URINE UROBILINOGEN NEGATIVE mg/dL (0.2-1.0)
[2017-11-13 21:40] LABS: URINE LEUK ESTERASE 1+ (NEGATIVE)
[2017-11-13 21:42] LABS: EPI CELLS RARE /HPF (FEW); URINE BACTERIA RARE /hpf (NONE SEEN); URINE HYALINE CAST 1 /lpf; URINE MUCUS RARE
[2017-11-13] MEDS ORDERED: CEFTRIAXONE 1 GM in DEXTROSE 5%-WATER - 50 ML IVPB ONE (22:01)
[2017-11-13 22:11] LABS: HEMATOCRIT 41.3 % (32.4-45.2); HEMOGLOBIN 13.8 GM/dL (10.7-15.3); MCH 28.4 pg (25.7-33.7); MCHC 33.5 g/dl (32.0-36.0); MEAN CELL VOLUME 84.8 fl (80-96); MEAN PLT VOLUME 8.7 fl (7.5-11.1); PLATELET COUNT 183 K/MM3 (134-434); RBC 4.86 M/mm3 (3.60-5.2); RDW 13.9 % (11.6-15.6); WHITE BLOOD COUNT 8.6 K/mm3 (4.0-10.0)
[2017-11-13] MEDS ORDERED: CEFTRIAXONE 1 GM/50 ML BAG ONE (22:27)
[2017-11-13 22:29] LABS: PLATELET ESTIMATE ADEQUATE
--- NOTE | 2017-11-14 00:21 | HP ---
CHIEF COMPLAINT: altered mental status PCP: Rakel HISTORY OF PRESENT ILLNESS: This is an 86 year old female with a recent CVA in July 2017 who presented to the ED with altered mental status. Son reports that when he went to give his mother her evening medications she was confused. He states when he gave her the glass of water to take her pills with she kept putting it down and didn't seem to comprehend what he was asking her to do. He did not notice any focal weakness. He states that her slurred speech is not new. EMS reported to the ED that there was some L arm weakness but this resolved by the time she arrived to the ED. Pt denies any complaints and son reports that she is back to her baseline mental status. When asked if she has any pain with urination she stated that she has had some recently but is unable to specify further. Daughter reports that she did not report any complaints when she toileted her earlier today and pt states that it wasn't bothering her then. 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 PAST SURGICAL HISTORY: R breast lumpectomy Social History: Smoking: pt denies Alcohol: pt denies Drugs: pt denies Family History: mother early in her 60s, phlebitis, blood clot father age 81, emphysema sister age 65, BrCA Allergies No Known Allergies Allergy (Verified 11/13/17 20:40) HOME MEDICATIONS: 3 Medication Instructions Recorded Atorvastatin Ca [Lipitor] 10 mg PO DAILY #0 tablet 05/18/13 Magnesium Oxide [Mag-Ox -] 400 mg PO BID #0 tablet 05/18/13 Multivit-Min/FA/Lycopene/Lut 1 each PO DAILY #0 tablet 05/18/13 [Centrum Silver Tablet] Potassium Chloride [Klor-Con] 20 meq PO DAILY #0 packet 05/18/13 metFORMIN HCL [Glucophage -] 1,000 mg PO BID #0 tablet 05/18/13 Anastrozole [Arimidex -] 1 mg PO DAILY 11/13/14 Insulin (Levemir) [Levemir Flexpen 14 units SQ HS 11/13/14 -] Amlodipine Besylate [Norvasc -] 5 mg PO DAILY tablet 08/02/17 Apixaban [Eliquis -] 5 mg PO BID tablet 08/02/17 Diltiazem Cd [Cardizem Cd -] 120 mg PO BID cap.cd.24h 08/02/17 Donepezil HCl [Aricept -] 5 mg PO DAILY tablet 08/02/17 REVIEW OF SYSTEMS CONSTITUTIONAL: Absent: fever, chills, diaphoresis, generalized weakness, malaise, loss of appetite, weight change HEENT: Absent: rhinorrhea, nasal congestion, throat pain, throat swelling, difficulty swallowing, mouth swelling, ear pain, eye pain, visual changes CARDIOVASCULAR: Absent: chest pain, syncope, palpitations, irregular heart rate, lightheadedness , peripheral edema RESPIRATORY: Absent: cough, shortness of breath, dyspnea with exertion, orthopnea, wheezing, stridor, hemoptysis GASTROINTESTINAL: Absent: abdominal pain, abdominal distension, nausea, vomiting, diarrhea, constipation, melena, hematochezia GENITOURINARY: Absent: dysuria, frequency, urgency, hesitancy, hematuria, flank pain, genital pain MUSCULOSKELETAL: Absent: myalgia, arthralgia, joint swelling, back pain, neck pain SKIN: Absent: rash, itching, pallor HEMATOLOGIC/IMMUNOLOGIC: Absent: easy bleeding, easy bruising, lymphadenopathy, frequent infections ENDOCRINE: Absent: unexplained weight gain, unexplained weight loss, heat intolerance, cold intolerance NEUROLOGIC: Present: mental status changes Absent: headache, focal weakness or paresthesias, dizziness, unsteady gait, seizure, bladder or bowel incontinence PSYCHIATRIC: Absent: anxiety, depression, suicidal or homicidal ideation, hallucinations. PHYSICAL EXAMINATION Vital Signs - 24 hr 3 11/13/17 20:10 Temperature 98.1 F Pulse Rate 84 Respiratory 16 Rate Blood Pressure 170/118 O2 Sat by Pulse 96 Oximetry (%) GENERAL: Awake, alert, and oriented to person and place, in no acute distress. HEAD: Normal with no signs of trauma. EYES: Pupils equal, round and reactive to light, extraocular movements intact, sclera anicteric, conjunctiva clear. No lid lag. EARS, NOSE, THROAT: Ears normal, nares patent, oropharynx clear without exudates. Moist mucous membranes. NECK: Normal range of motion, supple without lymphadenopathy, JVD, or masses. LUNGS: Breath sounds equal, clear to auscultation bilaterally. No wheezes. No accessory muscle use. Crackles b/l bases HEART: Regular rate and rhythm, normal S1 and S2 without murmur, rub or gallop. ABDOMEN: Soft, nontender, not distended, normoactive bowel sounds, no guarding, no rebound, no masses. No hepatomegaly or splenomegaly. MUSCULOSKELETAL: Normal range of motion at all joints. No bony deformities or tenderness. No CVA tenderness. UPPER EXTREMITIES: 2+ pulses, warm, well-perfused. No cyanosis. No clubbing. No peripheral edema. LOWER EXTREMITIES: 2+ pulses, warm, well-perfused. No calf tenderness. No peripheral edema. mild drift noted bilaterally, but leg does not hit bed NEUROLOGICAL: Cranial nerves II-XII intact. Normal speech. Normal gait. PSYCHIATRIC: Cooperative. Good eye contact. Appropriate mood and affect. SKIN: Warm, dry, normal turgor, no rashes or lesions noted, normal capillary refill. Laboratory Results - last 24 hr 3 11/13/17 11/13/17 11/13/17 20:46 20:46 21:30 WBC Corrected WBC (auto) RBC Hgb Hct MCV MCH MCHC RDW Plt Count MPV Absolute Neuts (auto) Absolute Lymphs (auto) Absolute Monos (auto) Absolute Eos (auto) Absolute Basos (auto) Add Manual Diff Neutrophils % Lymphocytes % Monocytes % Eosinophils % Basophils % Nucleated RBC % Platelet Estimate Platelet Comment Normal RBC Morphology PT with INR 14.50 H INR 1.28 H Sodium 142 Potassium 3.6 Chloride 108 H Carbon Dioxide 24 Anion Gap 10 BUN 25 H Creatinine 0.9 Creat Clearance w eGFR 59.09 Random Glucose 162 H Calcium 8.8 Total Bilirubin 0.5 D AST 29 ALT 21 Alkaline Phosphatase 102 Creatine Kinase 34 Troponin I 0.04 Total Protein 6.6 Albumin 3.8 Triglycerides 249 H Cholesterol 126 Total LDL Cholesterol 57 HDL Cholesterol 51 Urine Color Straw Urine Appearance Clear Urine pH 6.0 Ur Specific [place] 1.006 Urine Protein Negative Urine Glucose (UA) Negative Urine Ketones Negative Urine Blood 1+ H Urine Nitrite Negative Urine Bilirubin Negative Urine Urobilinogen Negative Ur Leukocyte Esterase 1+ H D Urine WBC (Auto) 17 Urine RBC (Auto) 6 Ur Epithelial Cells Rare Urine Bacteria Rare Hyaline Casts 1 Urine Mucus Rare Anti-A Titer Blood Type Antibody Screen 3 11/13/17 21:32 WBC 8.6 Corrected WBC (auto) RBC 4.86 Hgb 13.8 Hct 41.3 MCV 84.8 MCH 28.4 MCHC 33.5 RDW 13.9 Plt Count 183 MPV 8.7 Absolute Neuts (auto) Absolute Lymphs (auto) Absolute Monos (auto) Absolute Eos (auto) Absolute Basos (auto) Add Manual Diff Neutrophils % 62.0 Lymphocytes % 24.0 D Monocytes % 8.0 Eosinophils % 6.0 H D Basophils % Record Producer Nucleated RBC % Platelet Estimate Adequate Platelet Comment No clumping noted Normal RBC Morphology PT with INR INR Sodium Potassium Chloride Carbon Dioxide Anion Gap BUN Creatinine Creat Clearance w eGFR Random Glucose Calcium Total Bilirubin AST ALT Alkaline Phosphatase Creatine Kinase Troponin I Total Protein Albumin Triglycerides Cholesterol Total LDL Cholesterol HDL Cholesterol Urine Color Urine Appearance Urine pH Ur Specific [place] Urine Protein Urine Glucose (UA) Urine Ketones Urine Blood Urine Nitrite Urine Bilirubin Urine Urobilinogen Ur Leukocyte Esterase Urine WBC (Auto) Urine RBC (Auto) Ur Epithelial Cells Urine Bacteria Hyaline Casts Urine Mucus Anti-A Titer Blood Type Antibody Screen Radiology Reports EXAM: CT head without contrast THIS IS A PRELIMINARY REPORT FROM [facility] DATE OF EXAM: 2017-11-13 20:10:40 REASON FOR EXAM: Rule out stroke COMPARISON: None. FINDINGS: There is cerebral atrophy. Chronic microvascular ischemic changes are noted. Small chronic right occipital CVA. No acute intracranial hemorrhage or acute infarction. The visualized aspect of the paranasal sinuses and mastoid air cells are unremarkable. No acute fracture. THIS DOCUMENT HAS BEEN ELECTRONICALLY SIGNED Ryland Meehan MD 11/13/2017 20:55 EST ECG Sinus rhythm with occasional PVC Left anterior fascicular block LVH vent rate 82, QTC 425 TWI lead 2, 3, aVF ASSESSMENT/PLAN: 86yF with PMH HTN, DM, CVA 07/2017, HLD, dementia, UTI, R BrCA presented to the ED with altered mental status and possible dysuria. Altered mental status in setting of recent CVA - CT head no acute findings, consider MRI - neurology consult - cont eliquis and lipitor - ? r/t metabolic encephalopathy secondary to UTI UTI - cont ceftriaxone daily - follow culture results HTN/Afib - cont home medication: Dilitiazem 120mg BID, eliquis HLD - cont lipitor DM - cont levemir 14u SC HS - Novolog SS / BGM AC/HS dementia - cont aricept-f/u with PCP re: dose increase as pt only taking 5mg daily DVT PPX - cont home eliquis FEN - hold IVF given crackles - BMP in am - diabetic/low sodium diet as tolerated Dispo: Pt currently requires further observation. Visit type - Emergency Visit Emergency Visit: Yes ED Registration Date: 11/13/17 Care time: The patient presented to the Emergency Department on the above date and was hospitalized for further evaluation of their emergent condition. - New Patient This patient is new to me today: Yes Date on this admission: 11/13/17 - Critical Care Critical Care patient: No Hospitalist Screening - Colonoscopy Questionnaire Colonoscopy Questionnaire: Colonoscopy Questionnaire - Patient: 50 - 75 years old and never had a screening colonoscopy: No History of colon or rectal polyps, or CA: No History of IBD, Crohn's disease or UC: No History of abdominal radiation therapy as a child: No - Relative: 1 with colon or rectal CA, or polyps at age 60 or younger: No Colon or rectal CA diagnosed at age 45 or younger: No Multiple relatives with colon or rectal CA: No - Outcome: Screening Result: Negative Screen
[2017-11-14] MEDS ORDERED: INSULIN DETEMIR 100 UNITS/ML MDV SQ ONE (00:36)
[2017-11-14 04:19] VITALS: BMI 27.8
[2017-11-14] MEDS: INSULIN SLIDING SCALE (NOVOLOG) 1 VIAL SQ SCH ×2 (06:12→12:18)
[2017-11-14 07:05] LABS: BASO % 0.6 % (0-2.0); HEMATOCRIT 40.1 % (32.4-45.2); HEMOGLOBIN 13.5 GM/dL (10.7-15.3); LYMPH % 32.1 % (8-40); MCH 28.1 pg (25.7-33.7); MCHC 33.6 g/dl (32.0-36.0); MEAN CELL VOLUME 83.5 fl (80-96); MEAN PLT VOLUME 8.9 fl (7.5-11.1); MONO % 8.5 % (3.8-10.2); NEUT % 53.8 % (42.8-82.8); PLATELET COUNT 183 K/MM3 (134-434); RDW 14.1 % (11.6-15.6); WHITE BLOOD COUNT 8.1 K/mm3 (4.0-10.0)
--- NOTE | 2017-11-14 07:20 | PN ---
Physical Exam: SUBJECTIVE: Patient seen and examined at bedside. OBJECTIVE: Vital Signs Period Temp Pulse Resp BP Sys/Wolf Pulse Ox Last 24 Hr 98.1 F-98.5 F 66-84 16-18 155-179/90-118 96-96 General: Awake, alert, oriented x 2; exhibits expressive aphasia, answers not responsive to question Lungs: CTA CV: S1, S2, RRR Upper Ext: 2+ pulses, warm, well-perfused, no edema Lower Ext: 2+ pulses, warm, venous stasis changes, trace bilateral edema Laboratory Results - last 24 hr 11/13/17 11/13/17 11/13/17 20:46 20:46 20:46 WBC Cancelled Corrected WBC (auto) Cancelled RBC Cancelled Hgb Cancelled Hct Cancelled MCV Cancelled MCH Cancelled MCHC Cancelled RDW Cancelled Plt Count Cancelled MPV Cancelled Absolute Neuts (auto) Cancelled Absolute Lymphs (auto) Cancelled Absolute Monos (auto) Cancelled Absolute Eos (auto) Cancelled Absolute Basos (auto) Cancelled Add Manual Diff Cancelled Neutrophils % Cancelled Lymphocytes % Cancelled Monocytes % Cancelled Eosinophils % Cancelled Basophils % Cancelled Nucleated RBC % Cancelled Platelet Estimate Cancelled Platelet Comment Cancelled Normal RBC Morphology Cancelled PT with INR INR Sodium Potassium Chloride Carbon Dioxide Anion Gap BUN Creatinine Creat Clearance w eGFR POC Glucometer Random Glucose Calcium Total Bilirubin AST ALT Alkaline Phosphatase Creatine Kinase 34 Troponin I 0.04 Total Protein Albumin Triglycerides Cholesterol Total LDL Cholesterol 57 HDL Cholesterol Urine Color Urine Appearance Urine pH Ur Specific [place] Urine Protein Urine Glucose (UA) Urine Ketones Urine Blood Urine Nitrite Urine Bilirubin Urine Urobilinogen Ur Leukocyte Esterase Urine WBC (Auto) Urine RBC (Auto) Ur Epithelial Cells Urine Bacteria Hyaline Casts Urine Mucus Anti-A Titer Cancelled Blood Type Cancelled Antibody Screen Cancelled 11/13/17 11/13/17 11/13/17 20:46 20:46 21:30 WBC Corrected WBC (auto) RBC Hgb Hct MCV MCH MCHC RDW Plt Count MPV Absolute Neuts (auto) Absolute Lymphs (auto) Absolute Monos (auto) Absolute Eos (auto) Absolute Basos (auto) Add Manual Diff Neutrophils % Lymphocytes % Monocytes % Eosinophils % Basophils % Nucleated RBC % Platelet Estimate Platelet Comment Normal RBC Morphology PT with INR 14.50 H INR 1.28 H Sodium 142 Potassium 3.6 Chloride 108 H Carbon Dioxide 24 Anion Gap 10 BUN 25 H Creatinine 0.9 Creat Clearance w eGFR 59.09 POC Glucometer Random Glucose 162 H Calcium 8.8 Total Bilirubin 0.5 D AST 29 ALT 21 Alkaline Phosphatase 102 Creatine Kinase Troponin I Total Protein 6.6 Albumin 3.8 Triglycerides 249 H Cholesterol 126 Total LDL Cholesterol HDL Cholesterol 51 Urine Color Straw Urine Appearance Clear Urine pH 6.0 Ur Specific [place] 1.006 Urine Protein Negative Urine Glucose (UA) Negative Urine Ketones Negative Urine Blood 1+ H Urine Nitrite Negative Urine Bilirubin Negative Urine Urobilinogen Negative Ur Leukocyte Esterase 1+ H D Urine WBC (Auto) 17 Urine RBC (Auto) 6 Ur Epithelial Cells Rare Urine Bacteria Rare Hyaline Casts 1 Urine Mucus Rare Anti-A Titer Blood Type Antibody Screen 11/13/17 11/14/17 11/14/17 21:32 02:10 06:07 WBC 8.6 Corrected WBC (auto) RBC 4.86 Hgb 13.8 Hct 41.3 MCV 84.8 MCH 28.4 MCHC 33.5 RDW 13.9 Plt Count 183 MPV 8.7 Absolute Neuts (auto) Absolute Lymphs (auto) Absolute Monos (auto) Absolute Eos (auto) Absolute Basos (auto) Add Manual Diff Neutrophils % 62.0 Lymphocytes % 24.0 D Monocytes % 8.0 Eosinophils % 6.0 H D Basophils % Card Setter Nucleated RBC % Platelet Estimate Adequate Platelet Comment No clumping noted Normal RBC Morphology PT with INR INR Sodium Potassium Chloride Carbon Dioxide Anion Gap BUN Creatinine Creat Clearance w eGFR POC Glucometer 136 126 Random Glucose Calcium Total Bilirubin AST ALT Alkaline Phosphatase Creatine Kinase Troponin I Total Protein Albumin Triglycerides Cholesterol Total LDL Cholesterol HDL Cholesterol Urine Color Urine Appearance Urine pH Ur Specific [place] Urine Protein Urine Glucose (UA) Urine Ketones Urine Blood Urine Nitrite Urine Bilirubin Urine Urobilinogen Ur Leukocyte Esterase Urine WBC (Auto) Urine RBC (Auto) Ur Epithelial Cells Urine Bacteria Hyaline Casts Urine Mucus Anti-A Titer Blood Type Antibody Screen Current Medications Generic Name Dose Route Start Last Admin Trade Name Freq PRN Reason Stop Dose Admin Anastrozole 1 mg 11/14/17 10:00 11/14/17 12:14 Arimidex - PO 1 mg DAILY VERO Administration Apixaban 5 mg 11/14/17 10:00 11/14/17 09:45 Eliquis - PO 5 mg BID VERO Administration Atorvastatin Calcium 10 mg 11/14/17 22:00 Lipitor - PO HS VERO Donepezil HCl 5 mg 11/14/17 22:00 Aricept - PO HS VERO CEFTRIAXONE 1 G/50 ML PREMIX 50 mls @ 100 mls/hr 11/14/17 18:00 Ceftriaxone 1 Gm-D5w Bag IVPB DAILY VERO Insulin Aspart 1 vial 11/14/17 22:00 Novolog Vial Sliding Scale - SQ HS VERO Protocol Insulin Aspart 1 vial 11/14/17 07:00 11/14/17 12:18 Novolog Vial Sliding Scale - SQ Not Given TIDAC [facility] Protocol Insulin Detemir 14 units 11/14/17 22:00 Levemir Vial SQ HS [facility] Magnesium Oxide 400 mg 11/14/17 10:00 11/14/17 09:45 Mag-Ox - PO 400 mg BID VERO Administration Multivitamins/Minerals 1 each 11/14/17 10:00 11/14/17 09:45 Theragran-M PO 1 each DAILY VERO Administration Potassium Chloride 20 meq 11/14/17 10:00 11/14/17 09:49 K-Dur - PO 20 meq DAILY VERO Administration MEDICATION RECONCILIATION UPDATE BASED ON [facility] PATIENT CHART Amlodipine d/c Diltiazem d/c Toprol XL 100mg BID add Losartan 50mg daily add ASSESSMENT/PLAN 86 year-old female with a PMH significant for HTN, HLD, afib on Eliquis, CVA ( left sided sequelae), recurrent UTIs, breast cancer on arimidex, and dementia. Placed on observation for a self-limited period of altered mental status, hypertensive v. metabolic encephalopathy v. TIA/CVA. Hypertensive encephalopathy Hypertensive emergency --BP 170/118 on admission, improved to 149/92 --switch to Toprol XL, Losartan Metabolic encephalopathy UTI --UA with 17 WBCs --culture pending --continue ceftriaxone (day #2) h/o CVA --CT head no acute process --MRI ordered --neuro following Atrial fibrillation --rate well-controlled, continue Toprol XL --on Eliquis Hyperlipidemia --continue Lipitor IDDM --Levemir 14U qhs - Novolog sliding scale coverage Dementia --continue Aricept FEN Fluids: PO intake adequate Electrolytes: replete as indicated Nutrition: low sodium, diabetic DVT prophylaxis: on Eliquis Dispo: continues to require observation. Visit type - Emergency Visit Emergency Visit: Yes ED Registration Date: 11/13/17 Care time: The patient presented to the Emergency Department on the above date and was hospitalized for further evaluation of their emergent condition. - New Patient This patient is new to me today: Yes Date on this admission: 11/14/17 - Critical Care Critical Care patient: No
[2017-11-14 07:39] LABS: ANION GAP 11 (8-16); BLOOD UREA NITROGEN 18 mg/dL (7-18); CALCIUM 9.2 mg/dL (8.5-10.1); CHLORIDE 104 mmol/L (98-107); CO2 26 mmol/L (21-32); CREATININE 0.6 mg/dL (0.55-1.02); GLUCOSE,RANDOM 118 mg/dL (74-106); PHOSPHOROUS 3.3 mg/dL (2.5-4.9); POTASSIUM 3.2 mmol/L (3.5-5.1); SODIUM 141 mmol/L (136-145)
[2017-11-14] MEDS ORDERED: ANASTROZOLE 1 MG TABLET PO SCH (10:00)
[2017-11-14] MEDS ORDERED: POTASSIUM CHLORIDE TABS 20 MEQ TABLET.ER (FP) PO SCH (10:00)
[2017-11-14] MEDS ORDERED: amLODIPine BESYLATE 5 MG TABLET (FP) PO SCH (10:00)
[2017-11-14] MEDS ORDERED: MAGNESIUM OXIDE 400 MG TABLET (FP) PO SCH (10:00)
[2017-11-14] MEDS ORDERED: APIXABAN 5 MG TABLET PO SCH (10:00)
[2017-11-14] MEDS ORDERED: MULTIVITAMINS THER W-MINERALS COMBO TABLET (FP) PO SCH (10:00)
--- NOTE | 2017-11-14 10:18 | CON.NEURO ---
Consult Consult Specialty:: NEUROLOGY MOJGAN DALY - History of Present Illness History of Present Illness: This is an 86 year old female with a recent CVA in July 2017 who presented to the ED with altered mental status. Son reports that when he went to give his mother her evening medications she was confused. He states when he gave her the glass of water to take her pills with she kept putting it down and didn't seem to comprehend what he was asking her to do. He did not notice any focal weakness. He states that her slurred speech is not new. EMS reported to the ED that there was some L arm weakness but this resolved by the time she arrived to the ED. Pt denies any complaints and son reports that she is back to her baseline mental status. When asked if she has any pain with urination she stated that she has had some recently but is unable to specify further. Daughter reports that she did not report any complaints when she toileted her earlier today and pt states that it wasn't bothering her then. -Pt. is unable to recall events that brougt her to the hospital, reports only that she is not confused any more. As per nursing she had left leg weakness that has resolved, she ambultes with a walker at home. - History Source History Provided By: Patient, Medical Record - Past Medical History Cardio/Vascular: Yes: HTN Endocrine: Yes: Diabetes Mellitus - Past Surgical History Past Surgical History: Yes: Appendectomy - Alcohol/Substance Use Hx Alcohol Use: No History of Substance Use: reports: None - Smoking History Smoking history: Never smoked Have you smoked in the past 12 months: No Aproximately how many cigarettes per day: 0 - Social History ADL: Family Assistance History of Recent Travel: No Home Medications - Allergies Allergies/Adverse Reactions: Allergies Allergy/AdvReac Type Severity Reaction Status Date / Time No Known Allergies Allergy Verified 11/13/17 20:40 - Home Medications Home Medications: Ambulatory Orders Atorvastatin Ca [Lipitor] 10 mg PO DAILY #0 tablet 05/18/13 Magnesium Oxide [Mag-Ox -] 400 mg PO BID #0 tablet 05/18/13 Multivit-Min/FA/Lycopene/Lut [Centrum Silver Tablet] 1 each PO DAILY #0 tablet 05/18/13 Potassium Chloride [Klor-Con] 20 meq PO DAILY #0 packet 05/18/13 metFORMIN HCL [Glucophage -] 1,000 mg PO BID #0 tablet 05/18/13 Anastrozole [Arimidex -] 1 mg PO DAILY 11/13/14 Calcium Carbonate [Tums] 500 mg PO DAILY 11/13/14 Insulin (Levemir) [Levemir Flexpen -] 14 units SQ HS 11/13/14 Amlodipine Besylate [Norvasc -] 5 mg PO DAILY tablet 08/02/17 Amoxicillin - [Amoxicillin 500mg Capsule -] 500 mg PO TID 3 Days capsule Apixaban [Eliquis -] 5 mg PO BID tablet 08/02/17 Diltiazem Cd [Cardizem Cd -] 120 mg PO BID cap.cd.24h 08/02/17 Donepezil HCl [Aricept -] 5 mg PO DAILY tablet 08/02/17 Family Disease History - Family Disease History Family Disease History: Other: Son (hypothyroid) Physical Exam-Neuro Vital Signs: Vital Signs Temperature 98.5 F 11/14/17 06:31 Pulse Rate 66 11/14/17 06:31 Respiratory Rate 18 11/14/17 06:31 Blood Pressure 155/95 11/14/17 06:31 O2 Sat by Pulse Oximetry (%) 96 11/14/17 01:30 Labs: CBC, BMP 11/14/17 06:48 11/14/17 06:48 INR, PTT INR 1.28 (0.82-1.09) H 11/13/17 20:46 - Neuro Exam Level Of Consciousness: Yes: Alert, Oriented to Place Eyes: Yes: PERRL (Both pupils are 1mm, reactive to light.) Speech: Wernicke's Aphasia (Pt. has diminished hearing but makes semantic paraphasias. She is able to follow 2 step commands only) Dominant Hand: Right Mini Mental Exam: Impaired attention and concentration Cranial Nerves II-XII Intact: No (Old left central facial deficit) DTR's: 0 Left Achilles, 0 Right Achilles (Absent bilateral knee jerks), 1+ Left Bicep, 1+ Right Bicep, 1+ Left Tricep, 1+ Right Tricep Babinski: Present (Left side+) Response to light touch: Normal Response to pain prick: Normal (Unable to test proprioception) Coordination: Normal: Finger to Nose Motor Strength: 4/5: Left Leg (Left IP-4/5, increased tone in left arm/leg), 5/5 : Left Arm, Right Arm, Left Leg, Right Leg Gait: Deferred Imaging - Results Cat Scan: Report Reviewed (Right occipital lobe likely cgronic infarct) Assessment/Plan Pt. 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 The episode she has been admitted with may simply have been delirium due to UTI that has now remitted but she has elements of a Wernickes aphasia localizing to left temporal lobe-this may be a new finding. I agree with obtaining an MRI brain to see if a new ischemic event ocurred, need to know if she is breaking thru Epixaban. -Rehab/PT. Thank you, Ricci Sullivan MD [id number]
[2017-11-14] MEDS ORDERED: POTASSIUM CHLORIDE TABS 20 MEQ TABLET.ER (FP) PO ONE (12:49)
[2017-11-14] MEDS ORDERED: ARTIFICIAL TEARS (POLYVINYL ALCOHOL 1.4%) OPTH DROPS OU PRN (15:09)
[2017-11-14] MEDS ORDERED: LOSARTAN POTASSIUM 50 MG TABLET (FP) PO SCH (15:45)
--- NOTE | 2017-11-14 15:51 | HOSP ---
Subjective - Review of Symptoms Events since last encounter: Summoned to patient's room. Patient's daughter present. Patient lying in bed. Daughter states patient was sitting in chair when she lost her words. Lasted for about a minute or two. Patient helped back to bed. AVI Yanez states symptom onset 3:25pm. Sae Mondragon called. 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 Interacting, speaking with daughter. After several minutes, symptoms progressed. Patient became aphasic. Dr. Sullivan at bedside. Patient to CT scan for CTA. Physical Examination Vital Signs: Vital Signs Temperature 98.5 F 11/14/17 10:00 Pulse Rate 68 11/14/17 10:00 Respiratory Rate 18 11/14/17 10:00 Blood Pressure 149/92 11/14/17 10:00 O2 Sat by Pulse Oximetry (%) 92 L 11/14/17 09:00 Labs: CBC, BMP 11/14/17 06:48 11/14/17 06:48
--- NOTE | 2017-11-14 16:29 | CON.NEURO ---
Consult - History of Present Illness History of Present Illness: MY NOTE from EARLY THIS MORNING. This is an 86 year old female with a recent CVA in July 2017 who presented to the ED with altered mental status. Son reports that when he went to give his mother her evening medications she was confused. He states when he gave her the glass of water to take her pills with she kept putting it down and didn't seem to comprehend what he was asking her to do. He did not notice any focal weakness. He states that her slurred speech is not new. EMS reported to the ED that there was some L arm weakness but this resolved by the time she arrived to the ED. Pt denies any complaints and son reports that she is back to her baseline mental status. When asked if she has any pain with urination she stated that she has had some recently but is unable to specify further. Daughter reports that she did not report any complaints when she toileted her earlier today and pt states that it wasn't bothering her then. -Pt. is unable to recall events that brougt her to the hospital, reports only that she is not confused any more. As per nursing she had left leg weakness that has resolved, she ambultes with a walker at home. Pt. 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 The episode she has been admitted with may simply have been delirium due to UTI that has now remitted but she has elements of a Wernickes aphasia localizing to left temporal lobe-this may be a new finding. I agree with obtaining an MRI brain to see if a new ischemic event ocurred, need to know if she is breaking thru Epixaban. 415PM 11/14/17 At 325pm today pt. became suddenly aphasic, code kat called- pt. is aphasic, is unable to relate hx. - Past Medical History Cardio/Vascular: Yes: HTN Endocrine: Yes: Diabetes Mellitus - Past Surgical History Past Surgical History: Yes: Appendectomy - Alcohol/Substance Use Hx Alcohol Use: No History of Substance Use: reports: None - Smoking History Smoking history: Never smoked Have you smoked in the past 12 months: No Aproximately how many cigarettes per day: 0 - Social History ADL: Family Assistance History of Recent Travel: No Home Medications - Allergies Allergies/Adverse Reactions: Allergies Allergy/AdvReac Type Severity Reaction Status Date / Time No Known Allergies Allergy Verified 11/13/17 20:40 - Home Medications Home Medications: Ambulatory Orders Anastrozole [Arimidex -] 1 mg PO DAILY 11/13/14 Donepezil HCl [Aricept -] 5 mg PO DAILY tablet 08/02/17 Amlodipine Besylate [Norvasc -] 5 mg PO DAILY tablet 11/14/17 Apixaban [Eliquis -] 5 mg PO BID tablet 11/14/17 Atorvastatin Ca [Lipitor] 10 mg PO HS tablet 11/14/17 Ceftriaxone 1 G/50 ml Premix [Ceftriaxone 1 gm-D5w Bag] 1 g IVPB DAILY #6 bag Insulin (Levemir) [Levemir Vial] 14 units SQ HS ml 11/14/17 Insulin Sliding Scale [Novolog Vial Sliding Scale -] 1 vial SQ HS units Insulin Sliding Scale [Novolog Vial Sliding Scale -] 1 vial SQ TIDAC units Losartan Potassium [Cozaar -] 50 mg PO DAILY tablet 11/14/17 Magnesium Oxide [Mag-Ox -] 400 mg PO BID tablet 11/14/17 Metoprolol Succinate [Toprol XL -] 100 mg PO BID tab.sr.24h 11/14/17 Potassium Chloride [K-Dur -] 20 meq PO DAILY tablet.er 11/14/17 Family Disease History - Family Disease History Family Disease History: Other: Son (hypothyroid) Physical Exam-Neuro Vital Signs: Vital Signs Temperature 98.5 F 11/14/17 10:00 Pulse Rate 68 11/14/17 10:00 Respiratory Rate 18 11/14/17 10:00 Blood Pressure 149/92 11/14/17 10:00 O2 Sat by Pulse Oximetry (%) 92 L 11/14/17 09:00 Labs: CBC, BMP 11/14/17 06:48 11/14/17 06:48 INR, PTT INR 1.28 (0.82-1.09) H 11/13/17 20:46 - Neuro Exam Level Of Consciousness: Yes: Alert (Mute) Eyes: Yes: PERRL (Radha gaze deviation) Speech: Broca's Aphasia (comprehension is relatively intact, follows simple commnads-squeeze hand, close/open eyes) Dominant Hand: Right Mini Mental Exam: Follows commands as above, mute Cranial Nerves II-XII Intact: No (diminished right nlf) Gag: Present DTR's: 0 Left Achilles, 0 Right Achilles, 1+ Left Bicep, 1+ Right Bicep, 1+ Left Tricep, 1+ Right Tricep, 1+ Left Brachioradialis, 1+ Right Brachioradialis Babinski: Present (right) Response to light touch: Normal Response to pain prick: Normal (unable to test proprioception) Movement Disorders: Other (unable to test) Motor Strength: 4/5: Right Arm, Right Leg, 5/5: Left Arm, Left Leg Gait: Deferred (unable to test) NIH Stroke Scale - Last Known Well Date/Time & Onset Date Last Known Well: 11/14/17 - Initial Evaluation Level of consciousness: Alert Ask patient the month and their age: Both incorrect (Aphasic, no verbalization at all) Ask patient to open & close eyes; make fist and let go: Obeys both correctly Best gaze (horizontal eye movement): Normal Visual field testing: No visual field loss (responds to visual threat) Facial paresis (Show teeth/raise eyebrows/close eyes tight): Minor paralysis ( flattened nasolabial fold, asymmetry on smiling) (old left diminished nlf) Motor Function: Left Arm: Normal Motor Function: Right Arm: Drift Motor Function: Left Leg: Drift Motor Function: Right Leg: Some effort against gravity Limb Ataxia: No ataxia Sensory(Use pinprick test arms,legs,trunk,face/side to side): Normal Best language (Describe picture, name items, read sentences): Severe aphasia Dysarthria (read several words): Near unintelligible or unable to speak (Pt. is aphasic, not dysarthric) Extinction and Inattention: Inattention or extinction bilaterally to one of the sensory modalities - Total Score NIH Stroke Scale Score: 12 Assessment/Plan Pt. 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 The episode she has been admitted with may simply have been delirium due to UTI that has now remitted but she has elements of a Wernickes aphasia localizing to left temporal lobe-this may be a new finding. I agree with obtaining an MRI brain to see if a new ischemic event ocurred, need to know if she is breaking thru Epixaban. -Rehab/PT. 415PM-CODE KAT Pt. with sudden onset Brocas aphasia, she is scoring 12 on NIHSS, pt. 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 Pt. has bee Thank you,n accepted for transfer, Stroke Attending is Dr. Jacques Amato. Ricci Sullivan MD [id number]
--- NOTE | 2017-11-14 16:36 | DS ---
Physical Exam: SUBJECTIVE: Patient seen and examined OBJECTIVE: Vital Signs Period Temp Pulse Resp BP Sys/Wolf Pulse Ox Last 24 Hr 98.1 F-98.5 F 66-84 16-18 149-179/90-118 92-96 PHYSICAL EXAM See below LABS Laboratory Results - last 24 hr 11/13/17 11/13/17 11/13/17 20:46 20:46 20:46 WBC Cancelled Corrected WBC (auto) Cancelled RBC Cancelled Hgb Cancelled Hct Cancelled MCV Cancelled MCH Cancelled MCHC Cancelled RDW Cancelled Plt Count Cancelled MPV Cancelled Absolute Neuts (auto) Cancelled Absolute Lymphs (auto) Cancelled Absolute Monos (auto) Cancelled Absolute Eos (auto) Cancelled Absolute Basos (auto) Cancelled Add Manual Diff Cancelled Neutrophils % Cancelled Lymphocytes % Cancelled Monocytes % Cancelled Eosinophils % Cancelled Basophils % Cancelled Nucleated RBC % Cancelled Platelet Estimate Cancelled Platelet Comment Cancelled Normal RBC Morphology Cancelled PT with INR INR Sodium Potassium Chloride Carbon Dioxide Anion Gap BUN Creatinine Creat Clearance w eGFR POC Glucometer Random Glucose Calcium Phosphorus Magnesium Total Bilirubin AST ALT Alkaline Phosphatase Creatine Kinase 34 Troponin I 0.04 Total Protein Albumin Triglycerides Cholesterol Total LDL Cholesterol 57 HDL Cholesterol Urine Color Urine Appearance Urine pH Ur Specific [place] Urine Protein Urine Glucose (UA) Urine Ketones Urine Blood Urine Nitrite Urine Bilirubin Urine Urobilinogen Ur Leukocyte Esterase Urine WBC (Auto) Urine RBC (Auto) Ur Epithelial Cells Urine Bacteria Hyaline Casts Urine Mucus Anti-A Titer Cancelled Blood Type Cancelled Antibody Screen Cancelled 11/13/17 11/13/17 11/13/17 20:46 20:46 21:30 WBC Corrected WBC (auto) RBC Hgb Hct MCV MCH MCHC RDW Plt Count MPV Absolute Neuts (auto) Absolute Lymphs (auto) Absolute Monos (auto) Absolute Eos (auto) Absolute Basos (auto) Add Manual Diff Neutrophils % Lymphocytes % Monocytes % Eosinophils % Basophils % Nucleated RBC % Platelet Estimate Platelet Comment Normal RBC Morphology PT with INR 14.50 H INR 1.28 H Sodium 142 Potassium 3.6 Chloride 108 H Carbon Dioxide 24 Anion Gap 10 BUN 25 H Creatinine 0.9 Creat Clearance w eGFR 59.09 POC Glucometer Random Glucose 162 H Calcium 8.8 Phosphorus Magnesium Total Bilirubin 0.5 D AST 29 ALT 21 Alkaline Phosphatase 102 Creatine Kinase Troponin I Total Protein 6.6 Albumin 3.8 Triglycerides 249 H Cholesterol 126 Total LDL Cholesterol HDL Cholesterol 51 Urine Color Straw Urine Appearance Clear Urine pH 6.0 Ur Specific [place] 1.006 Urine Protein Negative Urine Glucose (UA) Negative Urine Ketones Negative Urine Blood 1+ H Urine Nitrite Negative Urine Bilirubin Negative Urine Urobilinogen Negative Ur Leukocyte Esterase 1+ H D Urine WBC (Auto) 17 Urine RBC (Auto) 6 Ur Epithelial Cells Rare Urine Bacteria Rare Hyaline Casts 1 Urine Mucus Rare Anti-A Titer Blood Type Antibody Screen 11/13/17 11/14/17 11/14/17 21:32 02:10 06:07 WBC 8.6 Corrected WBC (auto) RBC 4.86 Hgb 13.8 Hct 41.3 MCV 84.8 MCH 28.4 MCHC 33.5 RDW 13.9 Plt Count 183 MPV 8.7 Absolute Neuts (auto) Absolute Lymphs (auto) Absolute Monos (auto) Absolute Eos (auto) Absolute Basos (auto) Add Manual Diff Neutrophils % 62.0 Lymphocytes % 24.0 D Monocytes % 8.0 Eosinophils % 6.0 H D Basophils % Tight Rope Walker Nucleated RBC % Platelet Estimate Adequate Platelet Comment No clumping noted Normal RBC Morphology PT with INR INR Sodium Potassium Chloride Carbon Dioxide Anion Gap BUN Creatinine Creat Clearance w eGFR POC Glucometer 136 126 Random Glucose Calcium Phosphorus Magnesium Total Bilirubin AST ALT Alkaline Phosphatase Creatine Kinase Troponin I Total Protein Albumin Triglycerides Cholesterol Total LDL Cholesterol HDL Cholesterol Urine Color Urine Appearance Urine pH Ur Specific [place] Urine Protein Urine Glucose (UA) Urine Ketones Urine Blood Urine Nitrite Urine Bilirubin Urine Urobilinogen Ur Leukocyte Esterase Urine WBC (Auto) Urine RBC (Auto) Ur Epithelial Cells Urine Bacteria Hyaline Casts Urine Mucus Anti-A Titer Blood Type Antibody Screen 11/14/17 11/14/17 11/14/17 06:48 06:48 12:18 WBC 8.1 Corrected WBC (auto) RBC 4.80 Hgb 13.5 Hct 40.1 MCV 83.5 MCH 28.1 MCHC 33.6 RDW 14.1 Plt Count 183 MPV 8.9 Absolute Neuts (auto) Absolute Lymphs (auto) Absolute Monos (auto) Absolute Eos (auto) Absolute Basos (auto) Add Manual Diff Neutrophils % 53.8 Lymphocytes % 32.1 D Monocytes % 8.5 Eosinophils % 5.0 H Basophils % 0.6 Nucleated RBC % Platelet Estimate Platelet Comment Normal RBC Morphology PT with INR INR Sodium 141 Potassium 3.2 L Chloride 104 Carbon Dioxide 26 Anion Gap 11 BUN 18 Creatinine 0.6 Creat Clearance w eGFR POC Glucometer 135 Random Glucose 118 H Calcium 9.2 Phosphorus 3.3 Magnesium 2.0 Total Bilirubin AST ALT Alkaline Phosphatase Creatine Kinase Troponin I Total Protein Albumin Triglycerides Cholesterol Total LDL Cholesterol HDL Cholesterol Urine Color Urine Appearance Urine pH Ur Specific [place] Urine Protein Urine Glucose (UA) Urine Ketones Urine Blood Urine Nitrite Urine Bilirubin Urine Urobilinogen Ur Leukocyte Esterase Urine WBC (Auto) Urine RBC (Auto) Ur Epithelial Cells Urine Bacteria Hyaline Casts Urine Mucus Anti-A Titer Blood Type Antibody Screen 11/14/17 15:52 WBC Corrected WBC (auto) RBC Hgb Hct MCV MCH MCHC RDW Plt Count MPV Absolute Neuts (auto) Absolute Lymphs (auto) Absolute Monos (auto) Absolute Eos (auto) Absolute Basos (auto) Add Manual Diff Neutrophils % Lymphocytes % Monocytes % Eosinophils % Basophils % Nucleated RBC % Platelet Estimate Platelet Comment Normal RBC Morphology PT with INR INR Sodium Potassium Chloride Carbon Dioxide Anion Gap BUN Creatinine Creat Clearance w eGFR POC Glucometer 117 Random Glucose Calcium Phosphorus Magnesium Total Bilirubin AST ALT Alkaline Phosphatase Creatine Kinase Troponin I Total Protein Albumin Triglycerides Cholesterol Total LDL Cholesterol HDL Cholesterol Urine Color Urine Appearance Urine pH Ur Specific [place] Urine Protein Urine Glucose (UA) Urine Ketones Urine Blood Urine Nitrite Urine Bilirubin Urine Urobilinogen Ur Leukocyte Esterase Urine WBC (Auto) Urine RBC (Auto) Ur Epithelial Cells Urine Bacteria Hyaline Casts Urine Mucus Anti-A Titer Blood Type Antibody Screen HOSPITAL COURSE: Date of Admission:11/13/17 Date of Transfer: 11/14/17 Pre hospital course 11/13/17 This is an 86 year old female with a recent CVA in July 2017 who presented to the ED with altered mental status. Son reports that when he went to give his mother her evening medications she was confused. He states when he gave her the glass of water to take her pills with she kept putting it down and didn't seem to comprehend what he was asking her to do. He did not notice any focal weakness. He states that her slurred speech is not new. EMS reported to the ED that there was some left arm weakness but this resolved by the time she arrived to the ED. Pt denies any complaints and son reports that she is back to her baseline mental status. When asked if she has any pain with urination she stated that she has had some recently but is unable to specify further. ER course was notable for: (1) CT head without acute findings (2) u/a c/w UTI Subsequent hospital course 11/14/[address] Sullivan 10:00 am Patient unable to recall events that brought her to the hospital, reports only that she is not confused any more. As per nursing she had left leg weakness that has resolved, she ambulates with a walker at home. Level Of Consciousness: Yes: Alert, Oriented to Place Eyes: Yes: PERRL (Both pupils are 1mm, reactive to light.) Speech: Wernicke's Aphasia (Pt. has diminished hearing but makes semantic paraphasias. She is able to follow 2 step commands only) Dominant Hand: Right Mini Mental Exam: Impaired attention and concentration Cranial Nerves II-XII Intact: No (Old left central facial deficit) DTR's: 0 Left Achilles, 0 Right Achilles (Absent bilateral knee jerks), 1+ Left Bicep, 1+ Right Bicep, 1+ Left Tricep, 1+ Right Tricep Babinski: Present (Left side+) Response to light touch: Normal Response to pain prick: Normal (Unable to test proprioception) Coordination: Normal: Finger to Nose Motor Strength: 4/5: Left Leg (Left IP-4/5, increased tone in left arm/leg), 5/5 : Left Arm, Right Arm, Left Leg, Right Leg Gait: Deferred 3:35pm Patient sitting in chair talking with daughter when facial droop developed and she temporarily lost her speech. RN present. Helped patient back to bed. Exam by Dr. Sullivan Level of consciousness: Alert Ask patient the month and their age: Both incorrect (Aphasic, no verbalization at all) Ask patient to open & close eyes; make fist and let go: Obeys both correctly Best gaze (horizontal eye movement): Normal Visual field testing: No visual field loss (responds to visual threat) Facial paresis (Show teeth/raise eyebrows/close eyes tight): Minor paralysis ( flattened nasolabial fold, asymmetry on smiling) (old left diminished nlf) Motor Function: Left Arm: Normal Motor Function: Right Arm: Drift Motor Function: Left Leg: Drift Motor Function: Right Leg: Some effort against gravity Limb Ataxia: No ataxia Sensory(Use pinprick test arms,legs,trunk,face/side to side): Normal Best language (Describe picture, name items, read sentences): Severe aphasia Dysarthria (read several words): Near unintelligible or unable to speak (Pt. is aphasic, not dysarthric) Extinction and Inattention: Inattention or extinction bilaterally to one of the sensory modalities CT head/CTA done, pending dictation CD ROMs accompanying patient Dispo: tradelmi to [facility]. Minutes to complete discharge: 60 Discharge Summary Reason For Visit: CEREBRALVASCULAR ACCIDENT (CVA) Condition: Guarded - Instructions Referrals: Musa Ellington MD [Primary Care Provider] - Disposition: TRANSFER ACUTE CARE/OTHER HOSP - Home Medications Comprehensive Discharge Medication List: Ambulatory Orders Anastrozole [Arimidex -] 1 mg PO DAILY 11/13/14 Donepezil HCl [Aricept -] 5 mg PO DAILY tablet 08/02/17 Amlodipine Besylate [Norvasc -] 5 mg PO DAILY tablet 11/14/17 Apixaban [Eliquis -] 5 mg PO BID tablet 11/14/17 Atorvastatin Ca [Lipitor] 10 mg PO HS tablet 11/14/17 Ceftriaxone 1 G/50 ml Premix [Ceftriaxone 1 gm-D5w Bag] 1 g IVPB DAILY #6 bag Insulin (Levemir) [Levemir Vial] 14 units SQ HS ml 11/14/17 Insulin Sliding Scale [Novolog Vial Sliding Scale -] 1 vial SQ HS units Insulin Sliding Scale [Novolog Vial Sliding Scale -] 1 vial SQ TIDAC units Losartan Potassium [Cozaar -] 50 mg PO DAILY tablet 11/14/17 Magnesium Oxide [Mag-Ox -] 400 mg PO BID tablet 11/14/17 Metoprolol Succinate [Toprol XL -] 100 mg PO BID tab.sr.24h 11/14/17 Potassium Chloride [K-Dur -] 20 meq PO DAILY tablet.er 11/14/17 This patient is new to me today: Yes Date on this admission: 11/14/17 Emergency Visit: Yes ED Registration Date: 11/13/17 Care time: The patient presented to the Emergency Department on the above date and was hospitalized for further evaluation of their emergent condition. Critical Care patient: Yes Total Critical Care Time (in minutes): 90 Critical Care Statement: The care of this patient involved high complexity decision making to prevent further life threatening deterioration of the patient 's condition and/or to evaluate & treat vital organ system(s) failure or risk of failure. - Discharge Referral Referred to [facility] No
--- NOTE | 2017-11-14 16:53 | EKG ---
Test Reason : Blood Pressure : / mmHG Vent. Rate : 079 BPM Atrial Rate : 079 BPM P-R Int : 156 ms QRS Dur : 108 ms QT Int : 392 ms P-R-T Axes : 055 -48 -43 degrees QTc Int : 449 ms NORMAL SINUS RHYTHM POSSIBLE LEFT ATRIAL ENLARGEMENT LEFT ANTERIOR FASCICULAR BLOCK LEFT VENTRICULAR HYPERTROPHY ABNORMAL ECG WHEN COMPARED WITH ECG OF 13-NOV-2017 20:30, PREMATURE VENTRICULAR COMPLEXES ARE NO LONGER PRESENT Confirmed by EDUARDO MADDEN MD ([id number]) on 11/14/2017 4:53:23 PM Referred By: Confirmed By:EDUARDO MADDEN MD
--- NOTE | 2017-11-14 17:04 | EKG ---
Test Reason : Blood Pressure : / mmHG Vent. Rate : 082 BPM Atrial Rate : 082 BPM P-R Int : 156 ms QRS Dur : 112 ms QT Int : 364 ms P-R-T Axes : 063 -53 -34 degrees QTc Int : 425 ms SINUS RHYTHM WITH OCCASIONAL PREMATURE VENTRICULAR COMPLEXES POSSIBLE LEFT ATRIAL ENLARGEMENT LEFT ANTERIOR FASCICULAR BLOCK LEFT VENTRICULAR HYPERTROPHY NONSPECIFIC T WAVE ABNORMALITY ABNORMAL ECG WHEN COMPARED WITH ECG OF 31-JUL-2017 10:25, T WAVE INVERSION NOW EVIDENT IN INFERIOR LEADS T WAVE INVERSION LESS EVIDENT IN LATERAL LEADS Confirmed by EDUARDO MADDEN MD ([id number]) on 11/14/2017 5:04:22 PM Referred By: Confirmed By:EDUARDO MADDEN MD
[2017-11-14 17:41] VITALS: BP 175/131; PULSE 84; TEMP 97.8
[2017-11-14] MEDS ORDERED: CEFTRIAXONE 1 G/50 ML PREMIX 50 ML IVPB SCH (18:00)
[2017-11-14] MEDS ORDERED: INSULIN DETEMIR 100 UNITS/ML MDV SQ SCH (22:00)
[2017-11-14] MEDS ORDERED: CHLORHEXIDINE GLUCONATE 4% CLEANSER FOR DECOLONIZATION TP SCH (22:00)
[2017-11-14] MEDS ORDERED: INSULIN SLIDING SCALE (NOVOLOG) 1 VIAL SQ SCH (22:00)
[2017-11-14] MEDS ORDERED: MUPIROCIN 2% TOPICAL OINTMENT FOR DECOLONIZATION NS SCH (22:00)
[2017-11-14] MEDS ORDERED: ATORVASTATIN CA 10 MG TABLET (FP) PO SCH (22:00)
[2017-11-14] MEDS ORDERED: DONEPEZIL HCL 5 MG TABLET (FP) PO SCH (22:00)
[2017-11-15] MEDS ORDERED: LOSARTAN POTASSIUM 50 MG TABLET (FP) PO SCH (10:00)
== END 2017-11-14 17:40 | disposition short-term general hospital (02) | DRG 64 ==
LOC: SUPCPDRO 20:08 → JER 20:08 → JERBED 23:47 → J4S 11-14 01:32 → JICU 11-14 16:54 → OBSVTOIN 11-14 17:38
PROVIDERS: ADMIT Internal Medicine; ATTEND Nurse Practitioner Acute Care
DX: I63.512 Cerebral infarction due to unspecified occlusion or stenosis of left middle cerebral artery (principal); G93.41 Metabolic encephalopathy; I69.354 Hemiplegia and hemiparesis following cerebral infarction affecting left non-dominant side; N39.0 Urinary tract infection, site not specified; I67.4 Hypertensive encephalopathy; I16.1 Hypertensive emergency; R29.712 NIHSS score 12; R47.01 Aphasia; I44.4 Left anterior fascicular block; I48.91 Unspecified atrial fibrillation; E78.5 Hyperlipidemia, unspecified; E11.9 Type 2 diabetes mellitus without complications
CPT/HCPCS: 36415; 70450-TC; 70496-TC; 71045-TC-FY; 80048; 80053; 81003; 81015; 82465; 82550; 82962; 83718; 83721; 83735; 84100; 84478; 84484; 85025; 85610; 87086; 87186; 93005; 93010; 99285-25; G0378

== ENCOUNTER 2017-11-28 19:02 | Emergency (ER) | payer OTHER, BC ==
[2017-11-28] MEDS ORDERED: ASPIRIN 81 MG CHEWABLE TABLETS PO ONE (19:22)
--- NOTE | 2017-11-28 19:22 | PDOC ---
History of Present Illness - General Chief Complaint: Headache Stated Complaint: HYPERTENSIVE WITH HEADACHE Time Seen by Provider: 11/28/17 19:21 - History of Present Illness Initial Comments: 11/28/17 20:06 86-year-old female with history of CVA, diabetes, hypertension, hypercholesterolemia, dementia brought in by son and daughter for hypertension and headache since this evening. Son gave a dose of Tylenol prior to arrival. As per daughter patient appeared to be confused more than normal yesterday today appears to be baseline. Patient 2 weeks ago admitted for UTI/AMS at [facility]. Patient has been home for the last 2 weeks in usual state of health. As per daughter patient also has been having loose stools for the last 2 weeks. last episode of UTI patient was noted to have hypertension and fevers. Timing/Duration: momentarily Past History - Past Medical History Allergies/Adverse Reactions: Allergies Allergy/AdvReac Type Severity Reaction Status Date / Time No Known Allergies Allergy Verified 11/13/17 20:40 Home Medications: Ambulatory Orders Anastrozole [Arimidex -] 1 mg PO DAILY 11/13/14 Donepezil HCl [Aricept -] 5 mg PO DAILY tablet 08/02/17 Apixaban [Eliquis -] 5 mg PO BID tablet 11/14/17 Atorvastatin Ca [Lipitor] 10 mg PO HS tablet 11/14/17 Insulin (Levemir) [Levemir Vial] 14 units SQ HS ml 11/14/17 Magnesium Oxide [Mag-Ox -] 400 mg PO BID tablet 11/14/17 Metoprolol Succinate [Toprol XL -] 100 mg PO BID tab.sr.24h 11/14/17 Losartan Potassium [Cozaar -] 75 mg PO DAILY 11/28/17 Metformin HCl [Metformin HCl ER] 1,000 mg PO BID 11/28/17 levoFLOXacin [Levaquin -] 250 mg PO DAILY #10 tablet 11/28/17 metroNIDAZOLE [Flagyl -] 500 mg PO TID #30 tablet 11/28/17 COPD: No Diabetes: Yes (type 2) HTN: Yes Hypercholesterolemia: Yes - Surgical History Appendectomy: Yes - Suicide/Smoking/Psychosocial Hx Smoking Status: No Smoking History: Never smoked Have you smoked in the past 12 months: No Number of Cigarettes Smoked Daily: 0 Hx Alcohol Use: No Drug/Substance Use Hx: No Substance Use Type: None Review of Systems - Review of Systems Able to Perform ROS?: Yes Is the patient limited Greek proficient: No Constitutional: No: Symptoms Reported, See HPI, Chills, Diaphoresis, Fever, Loss of Appetite, Malaise, Night Sweats, Weakness, Weight Stable, Unintentional Wgt. Loss, Unexplained wgt Loss, Other HEENTM: No: Symptoms Reported, See HPI, Eye Pain, Blurred Vision, Tearing, Recent change in vision, Double Vision, Cataracts, Ear Pain, Ocular Prothesis, Ear Discharge, Nose Pain, Nose Congestion, Tinnitus, Nose Bleeding, Hearing Loss , Throat Pain, Throat Swelling, Mouth Pain, Dental Problems, Difficulty Swallowing, Mouth Swelling, Other Respiratory: No: Symptoms reported, See HPI, Cough, Orthopnea, Shortness of Breath, SOB with Exertion, SOB at Rest, Stridor, Wheezing, Productive cough, Hemoptysis, Other Cardiac (ROS): No: Symptoms Reported, See HPI, Chest Pain, Edema, Irregular Heart Rate, Lightheadedness, Palpitations, Syncope, Chest Tightness, Other ABD/GI: Yes: Diarrhea. No: Symptoms Reported, See HPI, Abdominal Distended, Abd. Pain w/ defecation, Blood Streaked Bowels, Constipated, Difficulty Swallowing, Nausea, Poor Appetite, Poor Fluid Intake, Rectal Bleeding, Vomiting , Indigestion, Abdominal cramping, Tarry Stools, Other : Yes: Other (diapered). No: Symptoms Reported, See HPI, Burning, Dysuria, Discharge, Frequency, Flank Pain, Hematuria, Incontinence, Pain, Urgency, Testicular Mass, Testicular Swelling, Lesions, Testicular Pain Neurological: Yes: Headache. No: Symptoms reported, See HPI, Numbness, Paresthesia, Pre-Existing Deficit, Seizure, Tingling, Tremors, Weakness, Unsteady Gait, Ataxia, Dizziness, Other *Physical Exam - Vital Signs 11/28/17 20:09 Last Vital Signs Temp Pulse Resp BP Pulse Ox 99.6 F 83 14 179/97 93 L 11/28/17 19:51 11/28/17 19:51 11/28/17 19:51 11/28/17 19:51 11/28/17 19:51 - Physical Exam General Appearance: Yes: Appropriately Dressed HEENT: positive: Normal ENT Inspection Respiratory/Chest: positive: Rales (at bases) Cardiovascular: positive: Regular Rate, S1, S2, Murmur Gastrointestinal/Abdominal: positive: Soft, Increased Bowel Sounds. negative: Tender Musculoskeletal: positive: Normal Inspection. negative: CVA Tenderness Extremity: positive: Normal Capillary Refill, Normal Inspection, Normal Range of Motion Integumentary: positive: Normal Color, Dry, Warm Neurologic: positive: chain dyer II-XII NML intact, Alert Heart Score/ECG Review - ECG Intrepretation Rhythm: Regular Rhythm Comment:: 11/29/17 00:26 sinus rhythm with occasional PVCs, Left bundle branch block, possible left atrial enlargement, ED Treatment Course - LABORATORY CBC & Chemistry Diagram: 11/28/17 20:20 11/28/17 20:22 - RADIOLOGY Radiograph Interpretation: 11/28/17 21:[address]: There is no interval change is identified identified in comparison to a prior CT study of 11/13/2017. Chronic right occipital cortical infarct. Moderate to marked periventricular and subcortical chronic microvascular ischemic changes. Medical Decision Making - Medical Decision Making 11/28/17 20:10 A: headache P: CBC CMP troponin EKG CT head CHest xray 11/28/17 23:30 Chest xray Left lobe infiltrate as per verbal report by Dr. Chen. history of diarrhea. c-diff ? possible.results pending. will cover for c-diff. strict return precautions reviewed with son and daughter. will d/c home. patient in no acute distress. no respiratory distress. 11/29/17 00:27 *DC/Admit/Observation/Transfer Diagnosis at time of Disposition: HTN (hypertension) Qualifiers: Hypertension type: essential hypertension Qualified Code(s): I10 - Essential ( primary) hypertension Pneumonia Qualifiers: Pneumonia type: due to unspecified organism Laterality: left Lung location: lower lobe of lung Qualified Code(s): J18.1 - Lobar pneumonia, unspecified organism - Discharge Dispostion Disposition: HOME Condition at time of disposition: Improved - Prescriptions Prescriptions: levoFLOXacin [Levaquin -] 250 mg PO DAILY #10 tablet metroNIDAZOLE [Flagyl -] 500 mg PO TID #30 tablet - Referrals Referrals: Musa Ellington MD [Staff Physician] - 24 hours - Patient Instructions Printed Discharge Instructions: Pneumonia-Adult Additional Instructions: follow up with her doctor tomorrow. return immediately to the ER IF WITH ALTERED mental status, fever, difficulty breathing, NV or worsening symptoms. take levaquin and flagyl as prescribed - Post Discharge Activity
[2017-11-28 19:56] VITALS: TEMP 99.6; BMI 26.5
[2017-11-28] MEDS ORDERED: ASPIRIN 325 MG TABLET ONE (21:06)
[2017-11-28 21:13] LABS: URINE APPEARANCE CLEAR; URINE BILIRUBIN NEGATIVE (NEGATIVE); URINE BLOOD NEGATIVE (NEGATIVE); URINE COLOR COLORLESS; URINE GLUCOSE (UA) NEGATIVE (NEGATIVE); URINE KETONE 1+ (NEGATIVE); URINE LEUK ESTERASE NEGATIVE (NEGATIVE); URINE NITRITE NEGATIVE (NEGATIVE); URINE PROTEIN NEGATIVE (NEGATIVE); URINE UROBILINOGEN NEGATIVE mg/dL (0.2-1.0)
[2017-11-28 21:15] LABS: INR 1.23 (0.82-1.09); PROTHROMBIN TIME (PATIENT) 13.9 SEC (9.98-11.88)
[2017-11-28 21:26] LABS: BASO % 0.5 % (0-2.0); HEMATOCRIT 42.7 % (32.4-45.2); HEMOGLOBIN 14.6 GM/dL (10.7-15.3); LYMPH % 16.3 % (8-40); MCH 28.4 pg (25.7-33.7); MCHC 34.2 g/dl (32.0-36.0); MEAN CELL VOLUME 83.2 fl (80-96); MEAN PLT VOLUME 8.8 fl (7.5-11.1); MONO % 5.2 % (3.8-10.2); PLATELET COUNT 216 K/MM3 (134-434); RBC 5.13 M/mm3 (3.60-5.2); RDW 13.5 % (11.6-15.6); WHITE BLOOD COUNT 12.2 K/mm3 (4.0-10.0)
[2017-11-28 21:38] LABS: ALBUMIN 3.7 g/dl (3.4-5.0); ANION GAP 12 (8-16); BILIRUBIN,TOTAL 0.8 mg/dL (0.2-1.0); BLOOD UREA NITROGEN 16 mg/dL (7-18); CALCIUM 8.7 mg/dL (8.5-10.1); CHLORIDE 102 mmol/L (98-107); CO2 23 mmol/L (21-32); CREATININE 0.9 mg/dL (0.55-1.02); GLUCOSE,RANDOM 132 mg/dL (74-106); MAGNESIUM 1.7 mg/dL (1.8-2.4); POTASSIUM 3.9 mmol/L (3.5-5.1); SGOT/AST 28 U/L (15-37); SGPT/ALT 16 U/L (12-78); SODIUM 137 mmol/L (136-145); TOT PROT 6.7 g/dl (6.4-8.2)
[2017-11-28 21:40] LABS: ALK PHOS 93 U/L (45-117)
[2017-11-28 22:12] VITALS: PULSE 80
[2017-11-28 22:56] VITALS: BP 170/86
[2017-11-28] MEDS ORDERED: metroNIDAZOLE 500 MG TABLET PO ONE (23:16)
[2017-11-28] MEDS ORDERED: metroNIDAZOLE 250 MG TABLET ONE (23:29)
--- NOTE | 2017-11-29 09:05 | PDOC ---
Patient Follow-up (Call Back) - Post ED Follow - Up Condition at time of discharge: Improved Disposition at time of original discharge: HOME - Disposition Rx Needed: Yes Additional Instructions/Notes: pharmacist called stating there is an interaction with Levaquin and Aricept that it can cause prolonged QT interval. pt is being treated for pneumonia (pt was hospitalized 2 weeks ago for UTI) and is being treated iw Flagyl for possible Cdif. I will place pt on Augmentin and doxycycline as recommended for Hospital aquired pneumonia.
--- NOTE | 2017-11-29 12:18 | EKG ---
Test Reason : Blood Pressure : / mmHG Vent. Rate : 083 BPM Atrial Rate : 083 BPM P-R Int : 158 ms QRS Dur : 150 ms QT Int : 426 ms P-R-T Axes : 063 -28 -64 degrees QTc Int : 500 ms SINUS RHYTHM WITH OCCASIONAL PREMATURE VENTRICULAR COMPLEXES POSSIBLE LEFT ATRIAL ENLARGEMENT LEFT BUNDLE BRANCH BLOCK ABNORMAL ECG WHEN COMPARED WITH ECG OF 14-NOV-2017 13:03, PREMATURE VENTRICULAR COMPLEXES ARE NOW PRESENT LEFT BUNDLE BRANCH BLOCK IS NOW PRESENT Confirmed by MD SAMMI, WILMA ([id number]) on 11/29/2017 12:18:09 PM Referred By: Confirmed By:WILMA CHAPA MD
== END 2017-11-28 23:42 | disposition home or self-care (01) ==
LOC: JER 19:02
DX: I10 Essential (primary) hypertension (principal); J18.1 Lobar pneumonia, unspecified organism; E11.9 Type 2 diabetes mellitus without complications; Z79.4 Long term (current) use of insulin; F03.90 Unspecified dementia, unspecified severity, without behavioral disturbance, psychotic disturbance, mood disturbance, and anxiety; Z86.73 Personal history of transient ischemic attack (TIA), and cerebral infarction without residual deficits
CPT/HCPCS: 36415; 70450-TC; 71045-TC-FY; 80053; 81003; 82550; 83735; 84484; 85025; 85610; 87045; 87046; 87086; 87324; 87449; 93005; 93010; 99283-25